=== PATIENT | male | born 1960 | race Caucasian/White ===

== ENCOUNTER 2022-11-26 09:52 | Outpatient (CLI) | payer OTHER, SELFPAY | END 2022-11-26 09:53 | disposition home or self-care (01) | PROVIDERS: PCP Physician Assistant Medical; Visit Provider Physician Assistant Medical | DX: I10 Essential (primary) hypertension (principal); Z12.5 Encounter for screening for malignant neoplasm of prostate; Z13.6 Encounter for screening for cardiovascular disorders | CPT/HCPCS: 80053; 80061; 84153 ==

== ENCOUNTER 2023-09-25 07:03 | Outpatient (CLI) | payer OTHER, SELFPAY ==
--- NOTE | 2023-09-25 07:15 | CRLHL7_ITS ---
For Patients: As a result of the Century Cures Act, medical imaging exams and procedure reports are released immediately into your electronic medical record. You may view this report before your referring provider. If you have questions, please contact your health care provider. INDICATION: Low back pain. COMPARISON: None. TECHNIQUE: Sagittal T1, T2, and STIR sequences. Axial T1 and T2 weighted sequences. FINDINGS: Normal vertebral body alignment. No fractures. No vertebral body loss of height. No spondylolisthesis. No ligament injury. No suspicious osseous lesions. Normal conus terminates at T12-L1. T12-L1 L1-2: No spinal canal or neural foraminal narrowing. L2-3: Annular bulge. No narrowing of the spinal canal. No neural foraminal narrowing. L3-4: Mild disc degeneration. Small central disc protrusion measuring approximately 3 mm in short axis. No narrowing of the spinal canal. No neural foraminal narrowing. L4-5: Disc degeneration and posterior disc bulge. No narrowing of spinal canal. No neural foraminal narrowing. Mild facet arthropathy. L5-S1: No narrowing of the spinal canal. No impingement of the traversing S1 nerve roots. No neural foraminal narrowing. Mild facet arthropathy. Normal visualized SI joints. Normal paraspinal soft tissues. Bilateral renal cysts. IMPRESSION: 1. Normal alignment. No fractures. 2. Lumbar spondylosis 3. At L3-4, mild disc degeneration. Small central disc protrusion. No spinal canal or neural foraminal narrowing. 4. No spinal canal or neural foraminal narrowing at the remaining levels Dictated by Harry Killian MD @ 09/25/2023 11:40:29 AM (Electronically Signed)
--- NOTE | 2023-09-25 13:00 | CRLHL7_ITS ---
For Patients: As a result of the Century Cures Act, medical imaging exams and procedure reports are released immediately into your electronic medical record. You may view this report before your referring provider. If you have questions, please contact your health care provider. INDICATION: Right upper quadrant pain COMPARISON: none TECHNIQUE: Real time villatoro scale imaging and color Doppler analysis was performed of the right upper quadrant. FINDINGS: The liver echotexture is diffusely increased with areas of focal fatty sparing. No suspicious intrahepatic mass. Intrahepatic cyst is present measuring 2.7 x 2.8 x 3.6 cm. Other smaller cysts are present elsewhere. There is a normal appearance of the hepatic IVC and proximal abdominal aorta. There is no evidence of ascites. The gallbladder is of normal size and there is no evidence of intraluminal stones or sludge. The gallbladder wall measures 2.9 mm in thickness. The common bile duct is of normal size and measures 6.8 mm in diameter at the level of the jose hepatis. The pancreas is not well-visualized. There is no evidence of a stone or hydronephrosis within the right kidney. Simple cyst right kidney are present. No hydronephrosis. The right kidney measures 12.0 cm in length. IMPRESSION: Diffuse hepatic steatosis with incidental intrahepatic cysts. Normal gallbladder. Dictated by Emiliano Wright MD @ 09/25/2023 1:35:01 PM (Electronically Signed)
== END 2023-09-25 07:04 | disposition home or self-care (01) ==
LOC: MRI 07:04
PROVIDERS: PCP Physician Assistant Medical; Visit Provider Physician Assistant Medical
DX: M54.50 Low back pain, unspecified (principal); M47.896 Other spondylosis, lumbar region; M51.36 Other intervertebral disc degeneration, lumbar region; M51.26 Other intervertebral disc displacement, lumbar region; R10.11 Right upper quadrant pain; K76.0 Fatty (change of) liver, not elsewhere classified; K76.89 Other specified diseases of liver; G89.29 Other chronic pain
CPT/HCPCS: 72148; 76705

== ENCOUNTER 2023-11-24 10:11 | Outpatient (CLI) | payer OTHER, SELFPAY ==
--- OUTSIDE RECORDS SUMMARY | 2023-11-28 09:56 | XMS_ITS | Encounter Summary ---
Author Name Unknown Organization [facility] Address [address] [place] [address]. [place] [address] Care Team Providers Care Hardboard Grinder Name Role Phone Noy Major MD Primary Care Provider [phone] Noy Major MD Unavailable Noy Major MD Unavailable Noy Major MD Unavailable Reason for Visit * Reason Comments Medication Refill ibuprofen (ADVIL/MOT RIN) 800 MG tablet Encounter Details Date Type Department Care Team (Late st Contact Info) Description 09/14/[address] [phone] Noy Major MD [address] [place] [address] [phone] Medication Refill ( ibuprofen (ADVIL/MOTRIN) 800 MG [...] because: Labs not current Vasile Mendieta RN CTOR OF SUPPLY CHAIN * Telephone Encounter - Nakita Mosley - [...] prescribing provider: Dr Major Future Office Visit: CTOR OF SUPPLY CHAIN documented in this encounter Plan of Treatment Not on file documented as of this encounter Visit Diagnoses Diagnosis Bilateral low back pain without sciatica, unspecified chronicity documented in this encounter Additional Health Concerns Assessment Noted Time PHQ-9 Depression Total Score: 0 12/24/19 18 7:39 AM CDT documented as of this encounter Care Teams Hardboard Grinder Relationship Specialty [place] [address] [place] [address] PCP - General Family Practice 03/19/11 [place] [address] [place] [address] PCP - Assigned PCP 07/14/16 10/20/18 [place] [address] [place] [address] Assigned PCP 07/14/16 08/02/22 [place] [address] [place] [address] Assigned PCP 10/12/22 11/15/22 documented as of this encounter
--- OUTSIDE RECORDS SUMMARY | 2023-11-28 09:56 | XMS_ITS | Encounter Summary ---
Author Name Unknown Organization [facility] Address [address] [place] [address]. [place] [address] Care Team Providers Care Linter Drier Operator Name Role Phone Noy Major MD Primary Care Provider [phone] Noy Major MD Unavailable Noy Major MD Unavailable Reason for Visit * Reason Comments Medication Refill Encounter Details Date Type Department Care Team (Late st Contact Info) Description 02/02/[address] [phone] [place] [id number] [place] [id number] Medication Refill Social History Tobacco Use [...] A break in medication Jimena Jay RN [facility] -- Triage Nurse documented in this encounter Plan of Treatment Not on file documented as of this encounter Visit Diagnoses Diagnosis Essential hypertension Unspecified essential hypertension documented in this encounter Additional Health Concerns Assessment Noted Time PHQ-9 Depression Total Score: 3 07/21/20 19 7:04 AM CANNING MACHINE OPERATOR documented as of this encounter Care Teams Linter Drier Operator Relationship Specialty [place] [address] [place] [address] PCP - General Family Practice 03/19/11 [place] [address] [place] [address] Assigned PCP 07/14/16 08/02/22 [place] [address] [place] [address] Assigned PCP 10/12/22 11/15/22 documented as of this encounter
--- OUTSIDE RECORDS SUMMARY | 2023-11-28 09:56 | XMS_ITS | Encounter Summary ---
Author Name Unknown Organization [facility] Address [address] [place] [address] Care Team Providers Care Souvenir Assembler Name Role Phone Noy Major MD Primary Care Provider [phone] Noy Major MD Unavailable Noy Major MD Unavailable Reason for Visit * Reason Onset Date Comments Patient/info Update 08/31/2019 post T1-2 in terlaminar epidural steroid injection Encounter Details Date Type Department Care Team (Late st Contact Info) Description 08/31/2019 [facility] Pain Management [address] [place] [address] [place] [address] [place] [address] Patient/info Update (post T1-2 interlaminar [...] concerns pt should call the clinic at [phone]. C [employer] documented in this encounter Plan of Treatment Not on file documented as of this encounter Visit Diagnoses Not on filedocumented in this encounter Additional Health Concerns Assessment Noted Time PHQ-9 Depression Total Score: 3 07/21/20 19 7:04 AM MUSIC THERAPIST [employer] documented as of this encounter Care Teams Souvenir Assembler Relationship Specialty [place] [address] [place] [address] PCP - General Family Practice 03/19/11 [place] [address] [place] [address] Assigned PCP 07/14/16 08/02/22 [place] [address] [place] [address] Assigned PCP 10/12/22 11/15/22 documented as of this encounter
--- OUTSIDE RECORDS SUMMARY | 2023-11-28 09:56 | XMS_ITS | Encounter Summary ---
Author Name Unknown Organization [facility] Address [address] [place] [address]. [place] [address] Care Team Providers Care Chucking Machine Set Up Operator Name Role Phone Noy Major MD Primary Care Provider [phone] Noy Major MD Unavailable Noy Major MD Unavailable Reason for Visit * Reason Comments Medication Refill Gabapentin Encounter Details Date Type Department Care Team (Late st Contact Info) Description 08/05/[address] [phone] [place] [id number] [place] [address] Medication Refill (Gabapentin) Social History Tobacco [...] RF 02/08/19 #270 RF x 1 03/09/2019 [place] [facility] Plan: ?? 1. Pain Physical [...] increase in pain since first session of healthcare account manager this past weekend. I advised he monitor [...] of care. ?? Marine Morgan APRN, CNP [facility] E WORKER HELPER documented in this encounter Plan of Treatment Not on file documented as of this encounter Visit Diagnoses Diagnosis Chronic bilateral low back pain without sciatica documented in this encounter Additional Health Concerns Assessment Noted Time PHQ-9 Depression Total Score: 3 07/21/20 19 7:04 AM PLATE WORKER HELPER documented as of this encounter Care Teams Chucking Machine Set Up Operator Relationship Specialty [place] [address] [place] [address] PCP - General Family Practice 03/19/11 [place] [address] [place] [address] Assigned PCP 07/14/16 08/02/22 [place] [address] [place] [address] Assigned PCP 10/12/22 11/15/22 documented as of this encounter
--- OUTSIDE RECORDS SUMMARY | 2023-11-28 09:56 | XMS_ITS | Encounter Summary ---
Author Name Unknown Organization [facility] Address [address] [place] [address] Care Team Providers Care Dixonac Operator Name Role Phone Noy Major MD Primary Care Provider [phone] Noy Major MD Unavailable Noy Major MD Unavailable Reason for Visit * Reason Onset Date Comments Patient/info Update 03/02/2020 Encounter Details Date Type Department Care Team (Late st Contact Info) Description 03/02/2020 Telephone [facility] Pain Management [address] [place] [address] Heidi Morgan, SKIN LIFTER BACON [facility] [address] [place] [address] Patient/info Update Social History Tobacco [...] or video, in 6 weeks Dolores Islas Marketing Professional [facility] documented in this encounter Plan of Treatment Not on file documented as of this encounter Visit Diagnoses Not on filedocumented in this encounter Additional Health Concerns Assessment Noted Time PHQ-9 Depression Total Score: 3 07/21/20 19 7:04 AM CUT IN WORKER documented as of this encounter Care Teams Dixonac Operator Relationship Specialty [place] [address] [place] [address] PCP - General Family Practice 03/19/11 [place] [address] [place] [address] Assigned PCP 07/14/16 08/02/22 [place] [address] [place] [address] Assigned PCP 10/12/22 11/15/22 documented as of this encounter
--- OUTSIDE RECORDS SUMMARY | 2023-11-28 09:56 | XMS_ITS | Encounter Summary ---
Author Name Unknown Organization [facility] Address [address] [place] [address]. [place] [address] Care Team Providers Care Manager Of Merchandising Name Role Phone Noy Major MD Primary Care Provider Noy Major MD Unavailable Noy Major MD Unavailable Noy Major MD Unavailable Encounter Details Date Type Department Care Team (Late st Contact Info) Description 06/13/2017 [facility] Medical Advice [facility] Neurological [address] [phone] Mega Curry MD [facility]THOPEDICS [address] [place] [address] Social History Tobacco Use Types [...] documented as of this encounter Care Teams Manager Of Merchandising Relationship Specialty [place] [address] [place] [address] PCP - General Family Practice 03/19/11 [place] [address] [place] [address] PCP - Assigned PCP 07/14/16 10/20/18 [place] [address] [place] [address] Assigned PCP 07/14/16 08/02/22 [place] [address] [place] [address] Assigned PCP 10/12/22 11/15/22 documented as of this encounter
--- OUTSIDE RECORDS SUMMARY | 2023-11-28 09:56 | XMS_ITS | Encounter Summary ---
Author Name Unknown Organization [facility] Address [address] [place] [address] Care Team Providers Care Employee Communications Intern Name Role Phone Noy Major MD Primary Care Provider Noy Major MD Unavailable Noy Major MD Unavailable Reason for Visit * Reason Onset Date Comments Procedure 03/09/2019 C7-T1 interlamin ar epidural steroid injection Encounter Details Date Type Department Care Team (Late st Contact Info) Description 03/09/2019 Telephone [facility] Pain Management [address] [place] [address] Heidi Morgan, CELLULAR EQUIPMENT REPAIRER [facility] [address] [place] [address] Procedure (C7-T1 interlaminar epidural steroid injection [...] be done at which interventional clinic site? [facility] Instruct patient to arrive as directed prior to the scheduled appointment time: ?? [place]: 30 minutes before ?? [place]: 30 minutes [...] SCHEDULE and route to Altagracia Derick. ?? [employer] insurance - For SI joint injections, DO NOT SCHEDULE and route Altagracia Derick. ?? [employer] - Any injection besides hip/shoulder/knee joint DO NOT SCHEDULE and route to Altagracia Derick.She will obtain PA and call pt back to schedule procedure or notify pt of denial. ?? [employer]-Route to Altagracia for review ?? IF SCHEDULING IN [place] AND NEEDS A PA, IT IS OKAY TO SCHEDULE. [place] HANDLES THEIR OWN PA'S AFTER THE PATIENT IS SCHEDULED. PLEASE SCHEDULE AT LEAST 1 WEEK OUT SO A PA CAN BE OBTAINED. Any chance of ? NO If YES, do NOT schedule and route to swimming pool installer and servicer Is an creative services manager needed? No Patient has a drive home? (mandatory) YES: ok Is patient taking any blood thinners (plavix, coumadin, jantoven, warfarin, heparin, pradaxa or dabigatran )? No If hold needed, do NOT schedule, route to swimming pool installer and servicer Is patient taking any aspirin products (includes Excedrin and Fiorinal)? No ?? If more than 325mg/day do NOT schedule; route to swimming pool installer and servicer ?? For CERVICAL procedures, hold all aspirin [...] YES, do NOT schedule and route to swimming pool installer and servicer Are you able to get on and off an exam table with minimal or no assistance? Yes If NO, do NOT schedule and route to swimming pool installer and servicer Are you able to roll over and lay on your stomach with minimal or no assistance? Yes If NO, do NOT schedule and route to swimming pool installer and servicer Any allergies to contrast dye, iodine, shellfish, or numbing and steroid medications? No If YES, route to swimming pool installer and servicer AND add allergy information to appointment notes [...] years? Yes ?? Was MRI done at [facility]? Yes ?? If not, where was it done? N/A ?? If MRI was not done at [facility], [facility] or [facility] do NOT schedule and route [...] patient have any questions? NO Saba Cooney [facility] documented in this encounter Plan of Treatment Not on file documented as of this encounter Visit Diagnoses Not on filedocumented in this encounter Additional Health Concerns Assessment Noted Time PHQ-9 Depression Total Score: 18 019 7:03 AM CDT documented as of this encounter Care Teams Employee Communications Intern Relationship Specialty [place] [address] [place] [address] PCP - General Family Practice 03/19/11 [place] [address] [place] [address] Assigned PCP 07/14/16 08/02/22 [place] [address] [place] [address] Assigned PCP 10/12/22 11/15/22 documented as of this encounter
--- OUTSIDE RECORDS SUMMARY | 2023-11-28 09:56 | XMS_ITS | Encounter Summary ---
Author Name Unknown Organization [facility] Address [address] [place] [address]. [place] [address] Care Team Providers Care Chairperson Anesthesiology Name Role Phone Noy Major MD Primary Care Provider Noy Major MD Unavailable Noy Major MD Unavailable Noy Major MD Unavailable Encounter Details Date Type Department Care Team (Late st Contact Info) Description 04/18/2017 [facility] Medical Advice [facility] Neurological [address] [phone] Mega Curry MD [facility] ORTHOPEDICS [address] [place] [address] Social History Tobacco Use Types [...] documented as of this encounter Care Teams Chairperson Anesthesiology Relationship Specialty [place] [address] [place] [address] PCP - General Family Practice 03/19/11 [place] [address] [place] [address] PCP - Assigned PCP 07/14/16 10/20/18 [place] [address] [place] [address] Assigned PCP 07/14/16 08/02/22 [place] [address] [place] [address] Assigned PCP 10/12/22 11/15/22 documented as of this encounter
--- OUTSIDE RECORDS SUMMARY | 2023-11-28 09:56 | XMS_ITS | Encounter Summary ---
Author Name Unknown Organization [facility] Address [address] [place] [address]. [place] [address] Care Team Providers Care Director Of Teacher Education Name Role Phone Noy Major MD Primary Care Provider [phone] Noy Major MD Unavailable Noy Major MD Unavailable Noy Major MD Unavailable Encounter Details Date Type Department Care Team (Late st Contact Info) Description 11/20/2017 [facility] Medical Advice [address] [phone] Tri De Jesus, ASPHALT PAVING FOREMAN Social History Tobacco Use Types Packs/Day Years [...] of this encounter Care Teams Director Of Teacher Education Relationship Specialty [place] [address] [place] [address] PCP - General Family Practice 03/19/11 [place] [address] [place] [address] PCP - Assigned PCP 07/14/16 10/20/18 [place] [address] [place] [address] Assigned PCP 07/14/16 08/02/22 [place] [address] [place] [address] Assigned PCP 10/12/22 11/15/22 documented as of this encounter
--- OUTSIDE RECORDS SUMMARY | 2023-11-28 09:56 | XMS_ITS | Referral Summary ---
Author Name Unknown Organization [place] Address [address] [place] [address] Care Team Providers Care Security Guards Dispatcher Name Role Phone Noy Major MD Primary Care Provider [phone] Allergies Active Allergy Reactions Criticality Noted Date [...] ST Respiratory Rate 18 10/11/2019 10:25 AM ROLL SKINNER Oxygen Saturation 96% 02/29/2020 11:05 AM CDT Inhaled Oxygen Concentration - - Weight 123.8 kg (273 lb) 02/29/2020 11:05 AM CDT Height 185.4 cm (6' 1) 10/11/2019 10:25 AM [facility]NER Body Mass Index 36.02 10/11/2019 10:25 AM RO[facility] SKINNER Plan of Treatment Not on file Medical Devices Implanted Type Area Compressed Gas Tester Device Identifier Shelf Expiration Date Model / Serial / Lot Graft Bone Putty Dbx 01ml [id number] Implanted:Qty : 1 on 03/21/2017 by Mega Curry MD at [facility] Bone/Ti ssue/Bi ologic N/A: Spine Cervical MUSCULOSKELETAL ROSS 10/15/2018 [id number] / [id number] / Archon Plate Implanted:Qty : 1 on 03/21/2017 by Mega Curry MD at [facility] N/A: Spine Cervical [id number] / / [id number] Archon Screw Implanted:Qty : 2 on 03/21/2017 by Mega Curry MD at [facility] N/A: Spine Cervical [id number] / / [id number] Archon Screw Implanted:Qty : 2 on 03/21/2017 by Mega Curry MD at [facility] N/A: Spine Cervical [id number] / / [id number] Cor Sm Acr Implanted:Qty : 1 on 03/21/2017 by Mega Curry MD at [facility] N/A: Spine Cervical [id number] / / [id number] 002 Procedures Procedure Name Priority Date/Time Associated Diagnosis Comments BASIC METABOLIC PANEL STAT 09/20/2019 10:33 AM RO[facility]INNER FECAL COLORECTAL CANCER SCREEN FIT Routine 08/27/2019 12:06 PM [facility] Screen for colon cancer LIPID REFLEX TO [...] Basic metabolic panel (BMP) (09/20/2019 10:33 AM ROLL SKINNER) Sodium 139 133 - 144 mmol/L 09/20/2019 12:04 PM ROLL SKINNER [facility] Potassium 4.1 3.4 - 5.3 mmol/L 09/20/2019 12:04 PM [facility] Comment:Specimen slightly he molyzed, potassium may be falsely elevated Chloride 106 94 - 109 mmol/L 09/20/2019 12:04 PM [facility] Carbon Dioxide 27 20 - 32 mmol/L 09/20/2019 11:10 AM [facility] Anion Gap 6 3 - 14 mmol/L 09/20/2019 11:10 AM [facility] Glucose 105(H) 70 - 99 mg/dL 09/20/2019 11:10 AM [facility] Urea Nitrogen 10 7 - 30 mg/dL 09/20/2019 11:10 AM [facility] Creatinine 0.79 0.66 - 1.25 mg/dL 09/20/2019 11:10 AM [facility] GFR Estimate >90 >60 mL/min/{1. 73_m2} 09/20/2019 11:10 AM [facility] Comment: Non GFR Calc Starting 08/04/2018, serum creatinine based estimated GFR (eGFR) will be calculated using the Chronic Kidney Disease Epidemiology Collaboration (CKD-EPI) equation. GFR Estimate If Black >90 >60 mL/min/{1. 73_m2} 09/20/2019 11:10 AM [facility] Comment: GFR Calc Starting 08/04/2018, serum creatinine based estimated GFR (eGFR) will be calculated using the Chronic Kidney Disease Epidemiology Collaboration (CKD-EPI) equation. Calcium 9.5 8.5 - 10.1 mg/dL 09/20/2019 11:10 AM [facility] Blood specimen (specimen) 09/20/2019 10:33 AM RO[facility] SKINNER 09/20/2019 10:42 AM RO[facility] SKINNER Rocael Palencia MD LAB - BLOOD ORDER [facility] [place] [address], [facility] [phone] * Fecal colorectal cancer screen FIT - Future (S+30) (08/27/2019 12:06 PM ROLL SKINNER) Occult Blood Scn FIT Negative NEG^Negati ve 09/01/2019 7:22 PM ROLL SKINNER [facility] Stool specimen (specimen) 08/27/2019 12:06 PM ROLL SKINNER 09/01/2019 12:07 PM RO[facility] SKINNER Noy Major MD LAB - STOOLS ORDERAB LES Performing Organization Address City/[facility]/ZIP Co de Phone Number [facility] [address] [place] [address] * (ABNORMAL) Lipid panel reflex to direct LDL Fasting (02/08/2019 10:43 AM CDT) [facility] Cholesterol 162 <200 mg/dL 02/09/2019 11:04 AM CDT [facility] Triglycerides 276(H) <150 mg/dL 02/09/2019 11:04 AM CDT [facility] Comment: Borderline high: ??150-199 mg/dl High: ? 200-499 mg/dl Very high: ? >499 mg/dl Fasting specimen HDL Cholesterol 38(L) >39 mg/dL 9 11:10 AM CDT [facility] LDL Cholesterol Calculated 69 <100 mg/dL 02/09/2019 11:10 AM CDT [facility] Comment:Desirable: <100 mg/d l Non HDL Cholesterol 124 <130 mg/dL 02/09/2019 11:10 AM CDT [facility] Blood specimen (specimen) 02/08/2019 10:43 AM CDT 02/08/2019 10:44 AM CDT Noy Major MD LAB - BLOOD ORDERABL ES Performing Organization Address City/[facility]/ZIP Co de Phone Number [facility] [address] [place] [address] * HIV Antigen Antibody Combo (12/22/2017 8:39 AM CDT) Pathologist [facility] HIV Antigen Antibody Combo Nonreactive NR^Nonrea ctive 12/22/2017 8:13 PM CDT [facility] Comment:HIV-1 p24 Ag & HIV-1 /HIV-2 Ab Not Detected Blood specimen (specimen) 12/22/2017 8:39 AM CDT 12/22/2017 8:40 AM CDT Noy Major MD LAB - BLOOD ORDERABL ES Performing Organization Address City/[facility]/ZIP Co de Phone Number [facility] [address] [place] [address] * Hepatitis C Screen Reflex to HCV RNA Quant and Genotype (11/12/2016 9:37 AM CDT) Hepatitis C Antibody Nonreactive Assay performance characteristics have not been established for newborns, infants, and children NR [facility] Blood specimen (specimen) 11/12/2016 9:37 AM CDT 11/12/2016 9:38 AM CDT Noy Major MD LAB - BLOOD ORDERABL ES Performing Organization Address [facility] Co de Phone Number [facility] [address] [place] [address] from Last 3 Months or Most Recently Relevant to Health Maintenance Advance Directives For more information, please contact: [phone] * Full Code (Latest Code Status on File) Date Activated Date Inactivated Comments 03/22/2017 9:49 AM 09/20/2019 10:11 AM * Full Code Date Activated Date Inactivated Comments 03/21/2017 5:02 PM 03/22/2017 9:49 AM Care Teams Security Guards Dispatcher Relationship Specialty [place] [address] [place] [address] PCP - General Family Practice 03/19/11
--- OUTSIDE RECORDS SUMMARY | 2023-11-28 09:56 | XMS_ITS | Encounter Summary ---
Author Name Unknown Organization [facility] Address [address] [place] [address]. [place] [address] Care Team Providers Care Splitting Machine Operator Helper Name Role Phone Noy Major MD Primary Care Provider [phone] Noy Major MD Unavailable Noy Major MD Unavailable Noy Major MD Unavailable Reason for Visit * Reason Onset Date Comments Refill Request 07/08/2016 Ibuprofen, Losar bajwa Encounter Details Date Type Department Care Team (Late st Contact Info) Description 07/08/[address] [phone] [place] [id number] [place] [address] Refill Request (Ibuprofen, Losartan) Social History [...] - Ok for refill Dayna Davis RN UATION ADVISOR * Telephone Encounter - Kristin Levin - 07/08/2016 1:36 PM CST Ibuprofen Last Written Prescription Date: 05/28/16 Last Quantity: 90, # refills: 0 Last Office Visit with [facility], [facility] or [facility] prescribing provider: 02/24/16 Next 5 appointments (look out 90 days) Jul 10, 2016 8:00 AM Yamelt Brody with Noy Major MD [facility] ([facility] [id number] [place] [phone] CREATININE Date Value Ref Range Status 03/03/2015 [...] AM Raffi Skinner with Noy Major MD [facility] ([facility]) [address] [place] [phone] POTASSIUM Date Value Ref Range Status 03/03/2015 3.9 3.4 - 5.3 mmol/L Final CREATININE Date Value Ref Range Status 03/03/2015 0.74 0.66 - 1.25 mg/dL Final BP Readings from Last 3 Encounters: 02/24/16 146/96 03/29/15 128/86 03/03/15 150/94 UATION ADVISOR documented in this encounter Plan of Treatment Not on file documented as of this encounter Visit Diagnoses Diagnosis Chronic low back pain- Primary Lumbago Benign essential hypertension Essential hypertension, benign Acute bilateral low back pain without sciatica documented in this encounter Care Teams Splitting Machine Operator Helper Relationship Specialty [place] [address] [place] [address] PCP - General Family Practice 03/19/11 [place] [address] [place] [address] PCP - Assigned PCP 07/14/16 10/20/18 [place] [address] [place] [address] Assigned PCP 07/14/16 08/02/22 [place] [address] [place] [address] Assigned PCP 10/12/22 11/15/22 documented as of this encounter
--- OUTSIDE RECORDS SUMMARY | 2023-11-28 09:56 | XMS_ITS | Encounter Summary ---
Author Name Unknown Organization [facility] Address [address] [place] [address]. [place] [address] Care Team Providers Care Lead Burner Supervisor Name Role Phone Noy Major MD Primary Care Provider [phone] Noy Major MD Unavailable Noy Major MD Unavailable Noy Major MD Unavailable Encounter Details Date Type Department Care Team (Late st Contact Info) Description 11/05/2017 [facility] [address] [address] Vasile Mendieta, RN Social History [...] documented as of this encounter Care Teams Lead Burner Supervisor Relationship Specialty [place] [address] [place] [address] PCP - General Family Practice 03/19/11 [place] [address] [place] [address] PCP - Assigned PCP 07/14/16 10/20/18 [place] [address] [place] [address] Assigned PCP 07/14/16 08/02/22 [place] [address] [place] [address] Assigned PCP 10/12/22 11/15/22 documented as of this encounter
--- OUTSIDE RECORDS SUMMARY | 2023-11-28 09:56 | XMS_ITS | Encounter Summary ---
Author Name Unknown Organization [facility] Address [address] [place] [address]. [place] [address] Care Team Providers Care Foundry Operator Name Role Phone Noy Major MD Primary Care Provider [phone] Noy Major MD Unavailable Noy Major MD Unavailable Reason for Visit * Reason Onset Date Comments Outreach 10/02/2019 [facility] ATT 1 Encounter Details Date Type Department Care Team (Late st Contact Info) Description 10/02/2019 Telephone [facility] Centralized Scheduling [facility] [place] [address] [place] [address] [place] [address] Outreach ([facility] ATT 1 [...] ReattributionPhysical Attempt 1 Message on voicemail Outreach Electrician Elevator Maintenance KT ONAL OPELINT ANALYST documented in this encounter Plan of Treatment Not on file documented as of this encounter Visit Diagnoses Not on filedocumented in this encounter Additional Health Concerns Assessment Noted Time PHQ-9 Depression Total Score: 3 07/21/20 19 7:04 AM NATIONAL OPELINT ANALYST documented as of this encounter Care Teams Foundry Operator Relationship Specialty [place] [address] [place] [address] PCP - General Family Practice 03/19/11 [place] [address] [place] [address] Assigned PCP 07/14/16 08/02/22 [place] [address] [place] [address] Assigned PCP 10/12/22 11/15/22 documented as of this encounter
--- OUTSIDE RECORDS SUMMARY | 2023-11-28 09:56 | XMS_ITS | Clinical Summary ---
Author Name Unknown Organization [facility] Address [place], [place] [address] Care Team Providers Care Talent Development Consultant Name Role Phone Noy Major MD Primary Care Provider [phone] Allergies Active Allergy Reactions Criticality Noted Date [...] Description 11/27/2023 9:30 AM CDT Office [place] [facility] [address] [place] [address] Isai Vargas MD Arrived 11/27/2023 Telephone [facility] [address] [place] [address] Dr Cuellar [facility] [place] [address] Isai Vargas MD Health Maintenance Update from Last 3 Months Immunizations Name Administration [...] Comments Blood Pressure 134/88 06/18/2020 3:27 PM CHECKING CLERK Pulse 70 06/18/2020 3:27 PM CHECKING CLERK Temperature 36.6 ??C (97.8 ??F) 06/18/2020 5:24 PM CS T Respiratory Rate 16 06/18/2020 3:27 PM CHECKING CLERK Oxygen Saturation 96% 06/18/2020 3:27 PM CHECKING CLERK Inhaled Oxygen Concentration - - Weight 127 kg (280 lb) 06/18/2020 3:27 PM CHECKING CLERK Height 188 cm (6' 2) 06/18/2020 3:27 PM CHECKING CLERK Body Mass Index 35.95 06/18/2020 3:27 PM CHECKING CLERK Plan of Treatment Health Maintenance Due Date [...] age to complete this topic Care Teams Talent Development Consultant Relationship Specialty [place] [address] [place] [address] PCP - General Family Practice 04/13/18
--- OUTSIDE RECORDS SUMMARY | 2023-11-28 09:56 | XMS_ITS | Encounter Summary ---
Author Name Unknown Organization [facility] Address [address] [place] [address]. [place] [address] Care Team Providers Care Roller Maker Name Role Phone Noy Major MD Primary Care Provider [phone] Noy Major MD Unavailable Noy Major MD Unavailable Encounter Details Date Type Department Care Team (Late st Contact Info) Description 08/19/2019 [facility] Pain Management [address] [place] [address] Malena Barrientos Social History Tobacco [...] Total Score: 3 07/21/20 19 7:04 AM V BELT FINISHER documented as of this encounter Care Teams Roller Maker Relationship Specialty [place] [address] [place] [address] PCP - General Family Practice 03/19/11 [place] [address] [place] [address] Assigned PCP 07/14/16 08/02/22 [place] [address] [place] [address] Assigned PCP 10/12/22 11/15/22 documented as of this encounter
--- OUTSIDE RECORDS SUMMARY | 2023-11-28 09:56 | XMS_ITS | Clinical Summary ---
Author Name Unknown Organization [place] [facility] Address [address] [place] [address] Care Team Providers Care Healthcare Market Consultant Name Role Phone Noy Major MD Primary Care Provider [phone] Allergies Active Allergy Reactions Criticality Noted Date [...] ST Respiratory Rate 18 10/11/2019 10:25 AM [facility]MP[facility] WRAPPER MAKER Oxygen Saturation 96% 02/29/2020 11:05 AM CDT Inhaled Oxygen Concentration - - Weight 123.8 kg (273 lb) 02/29/2020 11:05 AM CDT Height 185.4 cm (6' 1) 10/11/2019 10:25 AM [facility] WRAPPER MAKER Body Mass Index 36.02 10/11/2019 10:25 AM [facility] WRAPPER MAKER Plan of Treatment Health Maintenance Due [...] this topic Medical Devices Implanted Type Area Website Admin Device Identifier Shelf Expiration Date Model / Serial / Lot Graft Bone Putty Dbx 01ml [id number] Implanted:Qty : 1 on 03/21/2017 by Mega Curry MD at [facility] Bone/Ti ssue/Bi ologic N/A: Spine Cervical MUSCULOSKELETAL ROSS 10/15/2018 [id number] / [id number] / Archon Plate Implanted:Qty : 1 on 03/21/2017 by Mega Curry MD at [facility] N/A: Spine Cervical [id number] / / [id number] Archon Screw Implanted:Qty : 2 on 03/21/2017 by Mega Curry MD at [facility] N/A: Spine Cervical [id number] / / [id number] 002 Archon Screw Implanted:Qty : 2 on 03/21/2017 by Mega Curry MD at [facility] N/A: Spine Cervical [id number] / / [id number] 002 Cor Sm Acr Implanted:Qty : 1 on 03/21/2017 by Mega Curry MD at [facility] N/A: Spine Cervical [id number] / / [id number] 002 Procedures Procedure Name Priority Date/Time Associated Diagnosis Comments BASIC METABOLIC PANEL STAT 09/20/2019 10:33 AM [facility]MP[facility] WRAPPER MAKER FECAL COLORECTAL CANCER SCREEN FIT Routine 08/27/2019 12:06 PM [facility] WRAPPER MAKER Screen for colon cancer LIPID REFLEX [...] Basic metabolic panel (BMP) (09/20/2019 10:33 AM [facility]MP[facility] WRAPPER MAKER) Sodium 139 133 - 144 mmol/L 09/20/2019 12:04 PM [facility] Potassium 4.1 3.4 - 5.3 mmol/L 09/20/2019 12:04 PM [facility] Comment:Specimen slightly he molyzed, potassium may be falsely elevated Chloride 106 94 - 109 mmol/L 09/20/2019 12:04 PM [facility] Carbon Dioxide 27 20 - 32 mmol/L 09/20/2019 11:10 AM [facility] Anion Gap 6 3 - 14 mmol/L 09/20/2019 11:10 AM [facility] Glucose 105(H) 70 - 99 mg/dL 09/20/2019 11:10 AM [facility] Urea Nitrogen 10 7 - 30 mg/dL 09/20/2019 11:10 AM [facility] Creatinine 0.79 0.66 - 1.25 mg/dL 09/20/2019 11:10 AM [facility] GFR Estimate >90 >60 mL/min/{1. 73_m2} 09/20/2019 11:10 AM [facility] Comment: Non GFR Calc Starting 08/04/2018, serum creatinine based estimated GFR (eGFR) will be calculated using the Chronic Kidney Disease Epidemiology Collaboration (CKD-EPI) equation. GFR Estimate If Black >90 >60 mL/min/{1. 73_m2} 09/20/2019 11:10 AM [facility] Comment: GFR Calc Starting 08/04/2018, serum creatinine based estimated GFR (eGFR) will be calculated using the Chronic Kidney Disease Epidemiology Collaboration (CKD-EPI) equation. Calcium 9.5 8.5 - 10.1 mg/dL 09/20/2019 11:10 AM [facility] Blood specimen (specimen) 09/20/2019 10:33 AM LUMPIA WRAPPER MAKER 09/20/2019 10:42 AM LUMPIA WRAPPER MAKER Rocael Palencia MD LAB - BLOOD ORDER [facility] [address] [place] [address], [facility] [phone] * Fecal colorectal cancer screen FIT - Future (S+30) (08/27/2019 12:06 PM LUMP[facility] WRAPPER MAKER) Occult Blood Scn FIT Negative NEG^Negati ve 09/01/2019 7:22 PM LUMPIA WRAPPER MAKER [facility] Stool specimen (specimen) 08/27/2019 12:06 PM LUMPIA WRAPPER MAKER 09/01/2019 12:07 PM LUMPIA WRAPPER MAKER Noy Major MD LAB - STOOLS ORDERAB LES [facility] [address] [place] [address] * (ABNORMAL) Lipid panel reflex to direct LDL Fasting (02/08/2019 10:43 AM CDT) Cholesterol 162 <200 mg/dL 02/09/2019 11:04 AM CDT [facility] Triglycerides 276(H) <150 mg/dL 02/09/2019 11:04 AM CDT [facility] Comment: Borderline high: ??150-199 mg/dl High: ? 200-499 mg/dl Very high: ? >499 mg/dl Fasting specimen HDL Cholesterol 38(L) >39 mg/dL 9 11:10 AM CDT [facility] LDL Cholesterol Calculated 69 <100 mg/dL 02/09/2019 11:10 AM CDT [facility] Comment:Desirable: <100 mg/d l Non HDL Cholesterol 124 <130 mg/dL 02/09/2019 11:10 AM CDT [facility] Blood specimen (specimen) 02/08/2019 10:43 AM CDT 02/08/2019 10:44 AM CDT Noy Major MD LAB - BLOOD ORDERABL ES [facility] [address] [place] [address] * HIV Antigen Antibody Combo (12/22/2017 8:39 AM CDT) HIV Antigen Antibody Combo Nonreactive NR^Nonrea ctive 12/22/2017 8:13 PM CDT [facility] Comment:HIV-1 p24 Ag & HIV-1 /HIV-2 Ab Not Detected Blood specimen (specimen) 12/22/2017 8:39 AM CDT 12/22/2017 8:40 AM CDT Noy Major MD LAB - BLOOD ORDERABL ES Performing Organization Address City/[facility]/ZIP Co de Phone Number [facility] [address] [place] [address] * Hepatitis C Screen Reflex to HCV RNA Quant and Genotype (11/12/2016 9:37 AM CDT) Hepatitis C Antibody Nonreactive Assay performance characteristics have not been established for newborns, infants, and children NR [facility] Blood specimen (specimen) 11/12/2016 9:37 AM CDT 11/12/2016 9:38 AM CDT Noy Major MD LAB - BLOOD ORDERABL ES [facility] [address] [place] [address] from Last 3 Months or Most Recently Relevant to Health Maintenance Advance Directives For more information, please contact: [phone] * Full Code (Latest Code Status on File) Date Activated Date Inactivated Comments 03/22/2017 9:49 AM 09/20/2019 10:11 AM * Full Code Date Activated Date Inactivated Comments 03/21/2017 5:02 PM 03/22/2017 9:49 AM Care Teams Healthcare Market Consultant Relationship Specialty [place] [address] [place] [address] PCP - General Family Practice 03/19/11
--- OUTSIDE RECORDS SUMMARY | 2023-11-28 09:56 | XMS_ITS | Encounter Summary ---
Author Name Unknown Organization [facility] Address [address] [place] [address]. [place] [address] Care Team Providers Care Safety Analyst Name Role Phone Noy Major MD Primary Care Provider [phone] Noy Major MD Unavailable Noy Major MD Unavailable Reason for Visit * Reason Onset Date Comments Referral 02/08/2019 New Eval Encounter Details Date Type Department Care Team (Late st Contact Info) Description 02/08/2019 Telephone [facility] Pain Management [address] [place] [address] Pain Management Program, [facility] Referral (New Eval ) Social History Tobacco [...] are we to bill for this appointment? SocStock 7. Informed pt of cancellation (48 hour) [...] POLICY Yes 9. Referring Provider: Noy Major Dispatch Machine Runner [facility] documented in this encounter Plan of Treatment Not on file documented as of this encounter Visit Diagnoses Not on filedocumented in this encounter Additional Health Concerns Assessment Noted Time PHQ-9 Depression Total Score: 18 019 7:03 AM CDT documented as of this encounter Care Teams Safety Analyst Relationship Specialty [place] [address] [place] [address] PCP - General Family Practice 03/19/11 [place] [address] [place] [address] Assigned PCP 07/14/16 08/02/22 [place] [address] [place] [address] Assigned PCP 10/12/22 11/15/22 documented as of this encounter
--- OUTSIDE RECORDS SUMMARY | 2023-11-28 09:56 | XMS_ITS | Encounter Summary ---
Author Name Unknown Organization [facility] Address [address] [place] [address]. [place] [address] Care Team Providers Care Senior Electrical Designer Name Role Phone Noy Major MD Primary Care Provider [phone] Noy Major MD Unavailable Noy Major MD Unavailable Encounter Details Date Type Department Care Team (Late st Contact Info) Description 02/11/2019 [facility] Medical Advice [address], [address] [place] [address] Marce Velazquez, LEONARDA Social History [...] documented as of this encounter Care Teams Senior Electrical Designer Relationship Specialty [place] [address] [place] [address] PCP - General Family Practice 03/19/11 [place] [address] [facility] [address] Assigned PCP 07/14/16 08/02/22 [place] [address] [place] [address] Assigned PCP 10/12/22 11/15/22 documented as of this encounter
--- OUTSIDE RECORDS SUMMARY | 2023-11-28 09:56 | XMS_ITS | Encounter Summary ---
Author Name Unknown Organization [facility] Address [address] [place] [address]. [place] [address] Care Team Providers Care Chronometer Repairer Name Role Phone Noy Major MD Primary Care Provider [phone] Encounter Details Date Type Department Care Team [...] Total Score: 3 07/21/20 19 7:04 AM TAXONOMIST documented as of this encounter Care Teams Chronometer Repairer Relationship Specialty [place] [address] [place] [address] PCP - General Family Practice 03/19/11 documented as of this encounter
--- OUTSIDE RECORDS SUMMARY | 2023-11-28 09:57 | XMS_ITS | Encounter Summary ---
Author Name Unknown Organization [facility] Address [address] [place] [address]. [place] [address] Care Team Providers Care Skid Adzer Name Role Phone Noy Major MD Primary Care Provider [phone] Noy Major MD Unavailable Noy Major MD Unavailable Noy Major MD Unavailable Reason for Visit * Reason Onset Date Comments Refill Request 04/26/2016 Losartan Encounter Details Date Type Department Care Team (Late st Contact Info) Description 04/26/[address] [phone] [place] [id number] [place] [address] [phone] Refill Request (Losartan) Social History Tobacco Use [...] # refills: 1 Last Office Visit with [facility] prescribing provider: 02/24/2016 POTASSIUM Date Value [...] benign documented in this encounter Care Teams Skid Adzer Relationship Specialty [place] [address] [place] [address] PCP - General Family Practice 03/19/11 [place] [address] [place] [address] PCP - Assigned PCP 07/14/16 10/20/18 [place] [address] [place] [address] Assigned PCP 07/14/16 08/02/22 [place] [address] [place] [address] Assigned PCP 10/12/22 11/15/22 documented as of this encounter
--- OUTSIDE RECORDS SUMMARY | 2023-11-28 09:57 | XMS_ITS | Encounter Summary ---
Author Name Unknown Organization [facility] Address [address] [place] [address] Care Team Providers Care Reception Centre Manager Name Role Phone Noy Major MD Primary Care Provider [phone] Noy Major MD Unavailable Noy Major MD Unavailable Noy Major MD Unavailable Encounter Details Date Type Department Care Team (Late st Contact Info) Description 09/08/2012 [facility] [address] [phone] [facility] Social History Tobacco Use Types Packs/Day Years [...] on filedocumented in this encounter Care Teams Reception Centre Manager Relationship Specialty Start Date [place] Noy [place] [id number] [place] [address] [phone] PCP - General Family Practice 03/19/11 [place] [address] [place] [address] PCP - Assigned PCP 07/14/16 10/20/18 [place] [address] [place] [address] Assigned PCP 07/14/16 08/02/22 [place] [address] [place] [address] Assigned PCP 10/12/22 11/15/22 documented as of this encounter
--- OUTSIDE RECORDS SUMMARY | 2023-11-28 09:57 | XMS_ITS | Encounter Summary ---
Author Name Unknown Organization [facility] Address [address] [place] [address]. [place] [address] Care Team Providers Care Museum Security Chief Name Role Phone Noy Major MD Primary Care Provider [phone] Noy Major MD Unavailable Noy Major MD Unavailable Noy Major MD Unavailable Encounter Details Date Type Department Care Team (Late st Contact Info) Description 03/08/2015 [facility] Medical Advice [facility] [address] [place] [address] [phone] Anali Ndiaye, [employer]OOK [employer] Social History Tobacco Use Types Packs/Day Years [...] on filedocumented in this encounter Care Teams Museum Security Chief Relationship Specialty Start [place] N[place] [id number] [place] [address] [phone] PCP - General Family Practice 03/19/11 [place] [address] [place] [address] PCP - Assigned PCP 07/14/16 10/20/18 [place] [address] [place] [address] Assigned PCP 07/14/16 08/02/22 [place] [address] [place] [address] Assigned PCP 10/12/22 11/15/22 documented as of this encounter
--- OUTSIDE RECORDS SUMMARY | 2023-11-28 09:57 | XMS_ITS | Encounter Summary ---
Author Name Unknown Organization [facility] Address [address] [place] [address]. [place] [address] Care Team Providers Care Teacher Cclc Name Role Phone Noy Major MD Primary Care Provider [phone] Noy Major MD Unavailable Noy Major MD Unavailable Noy Major MD Unavailable Encounter Details Date Type Department Care Team (Late st Contact Info) Description 01/11/2014 [facility] Medical Advice [facility] [id number] [place] [phone] Tri De Jesus, DIRECTOR OF FAMILY [facility] Social History Tobacco Use Types Packs/Day Years [...] on filedocumented in this encounter Care Teams Teacher Cclc Relationship Specialty Start Date [place] Noy [place] [id number] [place] [address] [phone] PCP - General Family Practice 03/19/11 [place] [address] [place] [address] PCP - Assigned PCP 07/14/16 10/20/18 [place] [address] [place] [address] Assigned PCP 07/14/16 08/02/22 [place] [address] [place] [address] Assigned PCP 10/12/22 11/15/22 documented as of this encounter
--- OUTSIDE RECORDS SUMMARY | 2023-11-28 09:57 | XMS_ITS | Encounter Summary ---
Author Name Unknown Organization [facility] Address [address] [place] [address]. [place] [address] Care Team Providers Care Rn Dialysis Name Role Phone Noy Major MD Primary Care Provider [phone] Noy Major MD Unavailable Noy Major MD Unavailable Noy Major MD Unavailable Reason for Visit * Reason Onset Date Comments Refill Request 05/08/2011 zanaflex and nex ium Encounter Details Date Type Department Care Team (Late st Contact Info) Description 05/08/2011 [facility] Medical Advice [address] [phone] Noy Major MD [address] [place] [address] Refill Request (zanaflex and nexium) Social [...] unspecified documented in this encounter Care Teams Rn Dialysis Relationship Specialty [place] [address] [place] [address] PCP - General Family Practice 03/19/11 [place] [address] [place] [address] PCP - Assigned PCP 07/14/16 10/20/18 [place] [address] [place] [address] Assigned PCP 07/14/16 08/02/22 [place] [address] [place] [address] Assigned PCP 10/12/22 11/15/22 documented as of this encounter
--- OUTSIDE RECORDS SUMMARY | 2023-11-28 09:57 | XMS_ITS | Encounter Summary ---
Author Name Unknown Organization [facility] Address [address] [place] [address] Care Team Providers Care Hse Manager Name Role Phone Noy Major MD Primary Care Provider [phone] Noy Major MD Unavailable Noy Major MD Unavailable Noy Major MD Unavailable Encounter Details Date Type Department Care Team (Late st Contact Info) Description 06/07/2013 [facility] [id number] [place] [phone] [facility] Social History Tobacco Use Types [...] on filedocumented in this encounter Care Teams Hse Manager Relationship Specialty Start [place] N[place] [id number] [place] [address] [phone] PCP - General Family Practice 03/19/11 [place] [address] [place] [address] PCP - Assigned PCP 07/14/16 10/20/18 [place] [address] [place] [address] Assigned PCP 07/14/16 08/02/22 [place] [address] [place] [address] Assigned PCP 10/12/22 11/15/22 documented as of this encounter
--- OUTSIDE RECORDS SUMMARY | 2023-11-28 09:57 | XMS_ITS | Encounter Summary ---
Author Name Unknown Organization [facility] Address [address] [place] [address]. [place] [address] Care Team Providers Care Crystal Inspector Name Role Phone Noy Major MD Primary Care Provider [phone] Noy Major MD Unavailable Noy Major MD Unavailable Noy Major MD Unavailable Reason for Visit * Reason Onset Date Comments MyChart Communication 11/12/2014 tramadol Encounter Details Date Type Department Care Team (Latest Contact Info) Description 11/12/2014 [facility] [address] [phone] [place] [id number] [place] [address] MyChart Communication (tramadol) Social History Tobacco [...] Lumbago documented in this encounter Care Teams Crystal Inspector Relationship Specialty [place] [address] [place] [address] PCP - General Family Practice 03/19/11 [place] [address] [place] [address] PCP - Assigned PCP 07/14/16 10/20/18 [place] [address] [place] [address] Assigned PCP 07/14/16 08/02/22 [place] [address] [place] [address] Assigned PCP 10/12/22 11/15/22 documented as of this encounter
--- OUTSIDE RECORDS SUMMARY | 2023-11-28 09:57 | XMS_ITS | Encounter Summary ---
Author Name Unknown Organization [facility] Address [address] [place] [address] Care Team Providers Care Crane Ladle Person Name Role Phone Noy Major MD Primary Care Provider [phone] Noy Major MD Unavailable Noy Major MD Unavailable Noy Major MD Unavailable Encounter Details Date Type Department Care Team (Late st Contact Info) Description 09/17/2012 [facility] [address] [phone] [facility] Social History Tobacco Use Types Packs/Day Years [...] on filedocumented in this encounter Care Teams Crane Ladle Person Relationship Specialty Start Date End Date Noy Major MD [id number] [place] [address] [phone] PCP - General Family Practice 03/19/11 [place] [address] [place] [address] PCP - Assigned PCP 07/14/16 10/20/18 [place] [address] [place] [address] Assigned PCP 07/14/16 08/02/22 [place] [address] [place] [address] Assigned PCP 10/12/22 11/15/22 documented as of this encounter
--- OUTSIDE RECORDS SUMMARY | 2023-11-28 09:57 | XMS_ITS | Encounter Summary ---
Author Name Unknown Organization [facility] Address [address] [place] [address] Care Team Providers Care Behavior Specialist Name Role Phone Noy Major MD Primary Care Provider [phone] Noy Major MD Unavailable Noy Major MD Unavailable Noy Major MD Unavailable Encounter Details Date Type Department Care Team (Late st Contact Info) Description 09/17/2013 [facility] [address] [phone] [facility] [...] on filedocumented in this encounter Care Teams Behavior Specialist Relationship Specialty Start Date [place] Noy [place] [id number] [place] [phone] PCP - General Family Practice 03/19/11 [place] [address] [place] [address] PCP - Assigned PCP 07/14/16 10/20/18 [place] [address] [place] [address] Assigned PCP 07/14/16 08/02/22 [place] [address] [place] [address] Assigned PCP 10/12/22 11/15/22 documented as of this encounter
--- OUTSIDE RECORDS SUMMARY | 2023-11-28 09:57 | XMS_ITS | Encounter Summary ---
Author Name Unknown Organization [facility] Address [address] [place] [address]. [place] [address] Care Team Providers Care Patternmaker Apprentice Metal Name Role Phone Noy Major MD Primary Care Provider [phone] Noy Major MD Unavailable Noy Major MD Unavailable Noy Major MD Unavailable Encounter Details Date Type Department Care Team (Late st Contact Info) Description 06/18/2011 [facility] Extended Documentation [address] [phone] Nazanin Holland [facility] [address] [place] [address], [address] [place], [place] Social History Tobacco Use Types Packs/Day [...] on filedocumented in this encounter Care Teams Patternmaker Apprentice Metal Relationship Specialty [place] [address] [place] [address] PCP - General Family Practice 03/19/11 [place] [address] [place] [address] PCP - Assigned PCP 07/14/16 10/20/18 [place] [address] [place] [address] Assigned PCP 07/14/16 08/02/22 [place] [address] [place] [address] Assigned PCP 10/12/22 11/15/22 documented as of this encounter
--- OUTSIDE RECORDS SUMMARY | 2023-11-28 09:57 | XMS_ITS | Clinical Summary ---
Author Name Unknown Organization [facility] Address [address] [place] [address] Care Team Providers Care Tan Room Supervisor Name Role Phone Chang Sims MD Primary [...] for each transition of care or referral. [facility] Allergies Active Allergy Reactions Criticality Noted [...] Comments Blood Pressure 137/91 06/22/2018 2:22 PM TECHNICAL PHOTOGRAPHER Pulse 98 06/22/2018 2:22 PM TECHNICAL PHOTOGRAPHER Temperature 36.7 ??C (98 ??F) 12/28/2002 8:30 PM CDT Respiratory Rate 20 12/04/2009 8:22 AM CDT Oxygen Saturation - - Inhaled Oxygen Concentration - - Weight 126.6 kg (279 lb) 06/22/2018 2:22 PM TECHNICAL PHOTOGRAPHER Height 185.4 cm (6' 1) 06/22/2018 2:22 PM TECHNICAL PHOTOGRAPHER Body Mass Index 36.81 06/22/2018 2:22 PM TECHNICAL PHOTOGRAPHER Plan of Treatment Health Maintenance Due Date [...] age to complete this topic Care Teams Tan Room Supervisor Relationship Specialty [place] [address] [place] [address] PCP - General 12/07/09
--- OUTSIDE RECORDS SUMMARY | 2023-11-28 09:57 | XMS_ITS | Encounter Summary ---
Author Name Unknown Organization [facility] Address [address] [place] [address] Care Team Providers Care Search Engine Optimization Consultant Name Role Phone Noy Major MD Primary Care Provider [phone] Noy Majro MD Unavailable Noy Major MD Unavailable Noy Major MD Unavailable Encounter Details Date Type Department Care Team (Late st Contact Info) Description 04/06/2011 [facility] [address] [phone] [facility] Social History Tobacco Use Types Packs/Day Years [...] on filedocumented in this encounter Care Teams Search Engine Optimization Consultant Relationship Specialty Start Date End Date Noy [place] [id number] [place] [address] [phone] PCP - General Family Practice 03/19/11 [place] [address] [place] [address] PCP - Assigned PCP 07/14/16 10/20/18 [place] [address] [place] [address] Assigned PCP 07/14/16 08/02/22 [place] [address] [place] [address] Assigned PCP 10/12/22 11/15/22 documented as of this encounter
--- OUTSIDE RECORDS SUMMARY | 2023-11-28 09:57 | XMS_ITS | Encounter Summary ---
Author Name Unknown Organization [facility] Address [address] [place] [address] Care Team Providers Care Bi Architect Name Role Phone Noy Major MD Primary Care Provider [phone] Noy Major MD Unavailable Noy Major MD Unavailable Noy Major MD Unavailable Encounter Details Date Type Department Care Team (Late st Contact Info) Description 03/27/2016 [facility] Medical Advice [address], [address] [place] [address] Yvonne Rivera, AUTO VINYL TOP INSTALLER Social History Tobacco Use Types Packs/Day Years [...] on filedocumented in this encounter Care Teams Bi Architect Relationship Specialty [place] [address] [place] [address] PCP - General Family Practice 03/19/11 [place] [address] [place] [address] PCP - Assigned PCP 07/14/16 10/20/18 [place] [address] [place] [address] Assigned PCP 07/14/16 08/02/22 [place] [address] [place] [address] Assigned PCP 10/12/22 11/15/22 documented as of this encounter
--- OUTSIDE RECORDS SUMMARY | 2023-11-28 09:57 | XMS_ITS | Encounter Summary ---
Author Name Unknown Organization [facility] Address [address] [place] [address]. [place] [address] Care Team Providers Care Case Operator Name Role Phone Noy Major MD Primary Care Provider [phone] Noy Major MD Unavailable Noy Major MD Unavailable Noy Major MD Unavailable Encounter Details Date Type Department Care Team (Late st Contact Info) Description 05/20/2011 [facility] [address] [phone] [place] [id number] [place] [address] Social History Tobacco Use Types Packs/Day [...] on filedocumented in this encounter Care Teams Case Operator Relationship Specialty [place] [address] [place] [address] PCP - General Family Practice 03/19/11 [place] [address] [place] [address] PCP - Assigned PCP 07/14/16 10/20/18 [place] [address] [place] [address] Assigned PCP 07/14/16 08/02/22 [place] [address] [place] [address] Assigned PCP 10/12/22 11/15/22 documented as of this encounter
--- OUTSIDE RECORDS SUMMARY | 2023-11-28 09:57 | XMS_ITS | Encounter Summary ---
Author Name Unknown Organization [facility] Address [address] [place] [address]. [place] [address] Care Team Providers Care Slot Key Person Name Role Phone Noy Major MD Primary Care Provider [phone] Noy Major MD Unavailable Noy Major MD Unavailable Noy Major MD Unavailable Encounter Details Date Type Department Care Team (Late st Contact Info) Description 09/22/2014 MyC Medical Advice [facility] [id number] [place] [phone] Yuridia Morales, CORRECTIONS SERGEANT Social History Tobacco Use Types Packs/Day Years [...] on filedocumented in this encounter Care Teams Slot Key Person Relationship Specialty Start Date [place] Noy [place] [id number] [place] [address] [phone] PCP - General Family Practice 03/19/11 [place] [address] [place] [address] PCP - Assigned PCP 07/14/16 10/20/18 [place] [address] [place] [address] Assigned PCP 07/14/16 08/02/22 [place] [address] [place] [address] Assigned PCP 10/12/22 11/15/22 documented as of this encounter
--- OUTSIDE RECORDS SUMMARY | 2023-11-28 09:57 | XMS_ITS | Encounter Summary ---
Author Name Unknown Organization [facility] Address [address] [place] [address]. [place] [address] Care Team Providers Care Automobile Assembler Name Role Phone Suresh Webster MD Primary Care Provider Unavailable Noy Major MD Primary Care Provider [phone] Noy Major MD Unavailable Noy Major MD Unavailable Noy Major MD Unavailable Reason for Visit * Reason Onset Date Comments MyChart Communication 01/11/2011 BP update Encounter Details Date Type Department Care Team (Latest Contact Info) Description 01/11/2011 My[facility] Medical Advice [address] [phone] Noy Major MD [address] [place] [address] MyChart Communication (BP update) Social History [...] on filedocumented in this encounter Care Teams Automobile Assembler Relationship Specialty Start Date End Date Suresh Webster MD PCP - General 07/22/03 03/18/11 [place] [address] [place] [address] PCP - General Family Practice 03/19/11 [place] [address] [place] [address] PCP - Assigned PCP 07/14/16 10/20/18 [place] [address] [place] [address] Assigned PCP 07/14/16 08/02/22 [place] [address] [place] [address] Assigned PCP 10/12/22 11/15/22 documented as of this encounter
--- OUTSIDE RECORDS SUMMARY | 2023-11-28 09:57 | XMS_ITS | Encounter Summary ---
Author Name Unknown Organization [facility] Address [address] [place] [address]. [place] [address] Care Team Providers Care Self Storage Manager Name Role Phone Suresh Webster MD Primary Care Provider Unavailable Noy Major MD Primary Care Provider Noy Major MD Unavailable Noy Major MD Unavailable Noy Major MD Unavailable Reason for Visit * Reason Onset Date Comments Hypertension 01/11/2011 Encounter Details Date Type Department Care Team (Late st Contact Info) Description 01/11/2011 My[facility] Medical Advice [address] [phone] Noy Major MD [address] [place] [address] Hypertension Social History Tobacco Use Types [...] on filedocumented in this encounter Care Teams Self Storage Manager Relationship Specialty Start Date End Date Suresh Webster MD PCP - General 07/22/03 03/18/11 [place] [address] [place] [address] PCP - General Family Practice 03/19/11 [place] [address] [place] [address] PCP - Assigned PCP 07/14/16 10/20/18 [place] [address] [place] [address] Assigned PCP 07/14/16 08/02/22 [place] [address] [place] [address] Assigned PCP 10/12/22 11/15/22 documented as of this encounter
--- OUTSIDE RECORDS SUMMARY | 2023-11-28 09:57 | XMS_ITS | Encounter Summary ---
Author Name Unknown Organization [facility] Address [address] [place] [address]. [place] [address] Care Team Providers Care Coal Handler Name Role Phone Noy Major MD Primary Care Provider [phone] Noy Major MD Unavailable Noy Major MD Unavailable Noy Major MD Unavailable Reason for Visit * Reason Onset Date Comments MyChart Communication 03/20/2011 back pain Encounter Details Date Type Department Care Team (Latest Contact Info) Description 03/20/2011 My[facility] Medical Advice [address] [phone] Noy Major MD [address] [place] [address] MyChart Communication (back pain) Social History [...] on filedocumented in this encounter Care Teams Coal Handler Relationship Specialty [place] [address] [place] [address] PCP - General Family Practice 03/19/11 [place] [address] [place] [address] PCP - Assigned PCP 07/14/16 10/20/18 [place] [address] [place] [address] Assigned PCP 07/14/16 08/02/22 [place] [address] [place] [address] Assigned PCP 10/12/22 11/15/22 documented as of this encounter
--- OUTSIDE RECORDS SUMMARY | 2023-11-28 09:57 | XMS_ITS | Encounter Summary ---
Author Name Unknown Organization [facility] Address [address] [place] [address]. [place] [address] Care Team Providers Care Demand Planning Analyst Name Role Phone Noy Major MD Primary Care Provider [phone] Noy Major MD Unavailable Noy Major MD Unavailable Noy Major MD Unavailable Reason for Visit * Reason Onset Date Comments Refill Request 05/17/2011 Zanaflex Encounter Details Date Type Department Care Team (Late st Contact Info) Description 05/17/2011 My[facility] Medical Advice [address] [phone] Noy Major MD [address] [place] [address] [phone] Refill Request (Zanaflex) Social History Tobacco Use [...] on filedocumented in this encounter Care Teams Demand Planning Analyst Relationship Specialty [place] [address] [place] [address] PCP - General Family Practice 03/19/11 [place] [address] [place] [address] PCP - Assigned PCP 07/14/16 10/20/18 [place] [address] [place] [address] Assigned PCP 07/14/16 08/02/22 [place] [address] [place] [address] Assigned PCP 10/12/22 11/15/22 documented as of this encounter
--- OUTSIDE RECORDS SUMMARY | 2023-11-28 09:57 | XMS_ITS | Encounter Summary ---
Author Name Unknown Organization [facility] Address [address] [place] [address]. [place] [address] Care Team Providers Care Third Loader Name Role Phone Noy Major MD Primary Care Provider [phone] Noy Major MD Unavailable Noy Major MD Unavailable Noy Major MD Unavailable Encounter Details Date Type Department Care Team (Late st Contact Info) Description 11/10/2014 [facility] [phone] [place] [phone] Vasile Mendieta, RN Social History Tobacco [...] on filedocumented in this encounter Care Teams Third Loader Relationship Specialty Start Date [place] Date Noy [place] [id number] [place] [address] [phone] PCP - General Family Practice 03/19/11 [place] [address] [place] [address] PCP - Assigned PCP 07/14/16 10/20/18 [place] [address] [place] [address] Assigned PCP 07/14/16 08/02/22 [place] [address] [place] [address] Assigned PCP 10/12/22 11/15/22 documented as of this encounter
--- OUTSIDE RECORDS SUMMARY | 2023-11-28 09:57 | XMS_ITS | Encounter Summary ---
Author Name Unknown Organization [facility] Address [address] [place] [address]. [place] [address] Care Team Providers Care Nuclear Equipment Operator Name Role Phone Noy Major MD Primary Care Provider [phone] Noy Major MD Unavailable Noy Major MD Unavailable Noy Major MD Unavailable Reason for Visit * Reason Onset Date Comments Pain 05/20/2011 Pain management Encounter Details Date Type Department Care Team (Late st Contact Info) Description 05/20/2011 [facility] [address] [phone] [place] [id number] [place] [address] [phone] Pain (Pain management) Social History Tobacco Use [...] on filedocumented in this encounter Care Teams Nuclear Equipment Operator Relationship Specialty [place] [address] [place] [address] PCP - General Family Practice 03/19/11 [place] [address] [place] [address] PCP - Assigned PCP 07/14/16 10/20/18 [place] [address] [place] [address] Assigned PCP 07/14/16 08/02/22 [place] [address] [place] [address] Assigned PCP 10/12/22 11/15/22 documented as of this encounter
--- OUTSIDE RECORDS SUMMARY | 2023-11-28 09:57 | XMS_ITS | Encounter Summary ---
Author Name Unknown Organization [facility] Address [address] [place] [address]. [place] [address] Care Team Providers Care Education Department Registrar Name Role Phone Suresh Webster MD Primary Care Provider Unavailable Noy Major MD Primary Care Provider [phone] Noy Major MD Unavailable Noy Major MD Unavailable Noy Major MD Unavailable Encounter Details Date Type Department Care Team (Late st Contact Info) Description 05/26/[address] [address] Pawel Palm MD FAMILY MEDICINE [facility] [address] [place] [address] DIAGNOSIS NOT YET DEFINED (Primary Dx) Social [...] encounter Progress Notes * 05/26/2003 11:59 PM [id number] 00:00 History And Physical-[facility] MATOS) [Entered: 00:00 Tr anscription ([facility])] CHIEF COMPLAINT: Alcohol dependence. HISTORY OF PRESENT ILLNESS: This is the f [facility] admission for Thuan Lopez who is a 42-year-old male. The patient is . He has an 11-year-old son. 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 The patient enters [facility] at this time on his [...] Essentially negative. The patie nt went to [facility] for an evaluation, and inpatient treatment [...] MATOS MD T : 05/27/2003 12:40 MT: [facility] Document: [id number] LCN: [id number] DSC: [place], [place] Name: MR#: : Admit Date: THUAN LOPEZ [id number] 1960 1 HISTORY AND PHYSICAL Page 2 of 2 Electronically filed by Luciana Merrill 05/31/2003 3:0 1 PM documented in this encounter Plan of Treatment Not on file documented as of this encounter Visit Diagnoses Diagnosis DIAGNOSIS NOT YET DEFINED- Primary documented in this encounter Care Teams Education Department Registrar Relationship Specialty Start Date End Date Suresh Webster MD PCP - General 07/22/03 03/18/11 [place] [address] [place] [address] PCP - General Family Practice 03/19/11 [place] [address] [place] [address] PCP - Assigned PCP 07/14/16 10/20/18 [place] [address] [place] [address] Assigned PCP 07/14/16 08/02/22 [place] [address] [place] [address] Assigned PCP 10/12/22 11/15/22 documented as of this encounter
--- OUTSIDE RECORDS SUMMARY | 2023-11-28 09:57 | XMS_ITS | Encounter Summary ---
Author Name Unknown Organization [facility] Address [address] [place] [address]. [place] [address] Care Team Providers Care Closing Supervisor Name Role Phone Noy Major MD Primary Care Provider Noy Major MD Unavailable Noy Major MD Unavailable Noy Major MD Unavailable Encounter Details Date Type Department Care Team (Late st Contact Info) Description 05/28/2011 My[facility] Medical Advice [address] [address] [place] [id number] [place] [id number] Moderate major depression (H) (Primary Dx) [...] moderate documented in this encounter Care Teams Closing Supervisor Relationship Specialty [place] [address] [place] [address] PCP - General Family Practice 03/19/11 [place] [address] [place] [address] PCP - Assigned PCP 07/14/16 10/20/18 [place] [address] [place] [address] Assigned PCP 07/14/16 08/02/22 [place] [address] [place] [address] Assigned PCP 10/12/22 11/15/22 documented as of this encounter
--- OUTSIDE RECORDS SUMMARY | 2023-11-28 09:57 | XMS_ITS | Encounter Summary ---
Author Name Unknown Organization [facility] Address [address] [place] [address] Care Team Providers Care Telecommunication Tower Technician Name Role Phone Suresh Webster MD Primary Care Provider Unavailable Noy Major MD Primary Care Provider Noy Major MD Unavailable Noy Major MD Unavailable Noy Major MD Unavailable Reason for Visit * Reason Onset Date Comments Refill Request 10/10/2010 tramadol Encounter Details Date Type Department Care Team (Late st Contact Info) Description 10/10/2010 MyC Refill [address] [address] Suresh Webster MD Refill Request [...] routed, need to fax Luli Goode RN [employer]ICE REP documented in this encounter Plan of Treatment Not on file documented as of this encounter Visit Diagnoses Diagnosis Lumbar radiculopathy Thoracic or lumbosacral neuritis or radiculitis, unspecified documented in this encounter Care Teams Telecommunication Tower Technician Relationship Specialty Start Date End Date Suresh Webster MD PCP - General 07/22/03 03/18/11 [place] [address] [place] [address] PCP - General Family Practice 03/19/11 [place] [address] [place] [address] PCP - Assigned PCP 07/14/16 10/20/18 [place] [address] [place] [address] Assigned PCP 07/14/16 08/02/22 [place] [address] [place] [address] Assigned PCP 10/12/22 11/15/22 documented as of this encounter
== END 2023-11-24 10:12 | disposition home or self-care (01) ==
LOC: NFLDREF 11-28 09:54
PROVIDERS: PCP Physician Assistant Medical; Referring Provider Physician Assistant Medical; Visit Provider Physician Assistant Medical
DX: I10 Essential (primary) hypertension (principal); R00.2 Palpitations; Z13.220 Encounter for screening for lipoid disorders; Z13.29 Encounter for screening for other suspected endocrine disorder; Z13.1 Encounter for screening for diabetes mellitus
CPT/HCPCS: 80053; 80061; 83036; 84443

== ENCOUNTER 2023-11-27 09:59 | Outpatient (CLI) | payer OTHER, SELFPAY ==
--- OUTSIDE RECORDS SUMMARY | 2023-11-27 10:02 | XMS_ITS | Clinical Summary ---
Author Name Unknown Organization [facility] Address [address] [place] [id number] Care Team Providers Care Education Counselor Name Role Phone Noy Major MD Primary Care Provider [phone] Allergies Active Allergy Reactions Criticality Noted Date Comments Dave Inhibitors Cough 08/20/2004 Fluoxetine Low 03/21/2010 Chest wall pain Medications Medication Sig Dispensed Refills Start Date End Date Status omeprazole (PRILOSEC) [address] capsuleIndications:Gas troesophageal reflux disease without esophagitis Take 1 capsule (20 mg) by mouth daily 90 capsule 3 02/08/2019 Active metoprolol succinate ER (TOPROL-XL) 50 MG 24 hr tabletIndications:Esse ntial hypertension,Ascending aorta dilatation (H24) TAKE 1 TABLET(50 MG) BY MOUTH DAILY 90 tablet 3 02/28/2020 Active methocarbamol (ROBAXIN) 500 MG tabletIndications:Musc le spasm Take 2 tablets (1,000 mg) by mouth 4 times daily as needed for muscle spasms 150 tablet 1 03/10/2020 Active DULoxetine (CYMBALTA) 60 MG capsuleIndications:Cer vical radiculopathy,Chronic neck pain Take 1 capsule (60 mg) by mouth daily 30 capsule 3 05/02/2020 Active pregabalin (LYRICA) 150 MG capsuleIndications:Lum bar radiculopathy Take 1 capsule (150 mg) by mouth 3 times daily 90 capsule 1 05/30/2020 Active amLODIPine (NORVASC) 5 MG tabletIndications:Esse ntial hypertension TAKE 1 TABLET(5 MG) BY MOUTH DAILY 90 tablet 08/16/2020 Active valsartan-hydrochlorot hiazide (DIOVAN HCT) 320-25 MG tabletIndications:Esse ntial hypertension with goal blood pressure less than 140/90 Take 1 tablet by mouth daily 90 tablet 08/23/2020 Active Active Problems Problem Noted Date Diagnosed Date Alcohol dependence in remission 10/11/2019 Cervical segment dysfunction 09/07/2019 Cervicalgia 09/07/2019 Somatic dysfunction of lumbar region 09/07/2019 Somatic dysfunction of sacral region 09/07/2019 Ascending aortic aneurysm (H24) 03/23/2018 Morbid obesity 12/22/2017 Erectile dysfunction, unspecified erectile dysfu nction type 12/22/2017 Thoracic aortic aneurysm without rupture (H24) 0 10/16/2017 Chronic bilateral low back pain without sciatica 05/09/2017 S/P cervical spinal fusion 03/21/2017 Cervical radiculopathy 03/13/2017 Bilateral low back pain with out sciatica, unspecified chronicity 11/12/2016 Essential hypertension 02/24/2016 Low back pain 11/27/2012 Overview: Diagnosis updated by automated process. Provider to review and confirm. Generalized anxiety disorder 06/10/2011 Chronic low back pain 05/16/2011 Insomnia 03/08/2011 Cystic disease of liver 02/06/2011 Impetigo 02/06/2011 Leg edema 02/06/2011 Moderate major depression 11/01/2010 CARDIOVASCULAR SCREENING; LDL GOAL LESS THAN 130 06/17/2010 Obesity 04/01/2006 Overview: Problem list name updated by automated process. Provider to review Headache 11/11/2005 Overview: Problem list name updated by automated process. Provider to review Resolved Problems Problem Noted Date Diagnosed Date Resolved Date Alcohol dependence in remission 03/10/2017 10/11/2019 HTN, goal below 140/90 10/28/201102/23 Low back pain 04/08/2011 11/12/2016 Mild major depression 03/21/20102010 Dysthymic disorder 04/01/2006 0 DISC DIS NEC/NOS-THORAC(aka THORACIC) 07/27/2004 10/16/2017 Major depressive disorder, s araceli episode, mild (H24) 01/04/2004 04/01/2006 Other and unspecified alcoho l dependence, unspecified drinking behavior 05/30/2003 08/25/2006 Immunizations Name Administration Dates Next Due DTaP, Unspecified 07/06/2008 HepA-Peds, Unspecified 07/22/2013 HepB, Unspecified 07/22/2013 Influenza (IIV3) PF 06/02/2011 MMR 07/22/2013 Pneumococcal 23 valent 08/27/2019 TDAP Vaccine (Adacel) 07/06/2008 Td (Adult), Adsorbed 07/22/2013,12/28/2002 Typhoid, Unspecified Formulation 07/22/2013 Yellow Fever 07/22/2013 Family History Medical History Relation Comments Arthritis Brother 3 Psychotic Disorder Brother 4 Alcohol/Drug Father Arthritis Father Cardiovascular Father Hypertension Father Prostate Cancer Maternal Grandfather Alzheimer Disease Maternal Grandmother Cerebrovascular Disease Maternal Grandmother Obesity Maternal Grandmother Arthritis Mother Obesity Mother Alcohol/Drug Paternal Grandfather Circulatory Paternal Grandfather Arthritis Sister 2 Relation Status Comments Brother 1 Alive Brother 2 Alive Brother 3 Brother 4 Father (Age 70) Maternal Grandfather Maternal Grandmother Mother Paternal Grandfather Paternal Grandmother Sister 1 Alive Sister 2 Social History Tobacco Use Types Packs/Day Years Used Date Smoking Tobacco: Never Smokeless Tobacco: Never Alcohol Use Standard Drinks/Week Comments Yes 0 (1 standard drink = 0.6 oz pur e alcohol) socially PHQ-2 Answer Date Recorded PHQ-2 Score 6 04/14/2018 Adolescent Education Answer Date Record ed Getting School Help Needed Not on file 05/25 Sex and Gender Information Value Date Recorded Sex Assigned at Male 02/10/2019 3:52 PM CDT Gender Identity Male 02/10/2019 3:52 PM CDT Sexual Orientation Straight 02/10/2019 3: 52 PM CDT Last Filed Vital Signs Vital Sign Reading Time Taken Comments Blood Pressure 128/86 02/29/2020 11:05 AM CDT Pulse 102 02/29/2020 11:05 AM CDT Temperature 36.7 ??C (98.1 ??F) 10/11/2019 10:[address] Respiratory Rate 18 10/11/2019 10:25 AM COFFIN MAKER Oxygen Saturation 96% 02/29/2020 11:05 AM CDT Inhaled Oxygen Concentration - - Weight 123.8 kg (273 lb) 02/29/2020 11:05 AM CDT Height 185.4 cm (6' 1) 10/11/2019 10:25 AM COFFIN MAKER Body Mass Index 36.02 10/11/2019 10:25 AM COFFIN MAKER Plan of Treatment Health Maintenance Due Date Last Done Comments ADVANCE CARE PLANNING 1961 CT COLONOGRAPHY 1961 FLEX SIG 1961 URINE DRUG SCREEN 1961 sDNA (Cologuard) 1961 COLONOSCOPY 1971 YEARLY PREVENTIVE VISIT 07/06/2009 07/06/2008 ZOSTER IMMUNIZATION (1 of 2) 2011 PHQ-9 01/19/2020 07/20/2019, 01/17, 12/22/2017, Additional history exists ANNUAL REVIEW OF HM ORDERS 08/27/2020 08/27/2019 COLORECTAL CANCER SCREENING 08/27/2020 FIT 08/27/2020 08/27/2019 CREATININE 09/20/2020 09/20/2019, 08/18, 02/08/2019, Additional history exists RSV VACCINE ( & 60+) (1 - 1-dose 60+ series) 2021 GLUCOSE 09/20/2022 09/20/2019, 08/18, 02/08/2019, Additional history exists COVID-19 Vaccine ( - 2022- season) 2023 INFLUENZA VACCINE (#1) 2023 06/02/2011 DTAP/TDAP/TD IMMUNIZATION (4 - Td or Tdap) 07/22/2023 07/22/2013, 07/06/2008, 07/06/2008, Additional history exists LIPID 02/09/2024 02/08/2019, 050 02/2018, 11/12/2016, Additional history exists HEPATITIS C SCREENING Completed 11/12/2016 DEPRESSION ACTION PLAN Completed 8, 11/21/2016, 11/21/2016, Additional history exists HIV SCREENING Completed 12/22/2017 Pneumococcal Vaccine: Pediatrics (0 to 5 Years) and At-Risk Patients (6 to 64 Years) Aged Out 08/27/2019 No longer eligible based on patient's age to complete this topic HPV IMMUNIZATION Aged Out No longer e ligible based on patient's age to complete this topic IPV IMMUNIZATION Aged Out No longer e ligible based on patient's age to complete this topic MENINGITIS IMMUNIZATION Aged Out No l onger eligible based on patient's age to complete this topic RSV MONOCLONAL ANTIBODY Aged Out No l onger eligible based on patient's age to complete this topic Medical Devices Implanted Type Area Slack Line Yarder Device Identifier Shelf Expiration Date Model / Serial / Lot Graft Bone Putty Dbx 01ml [id number] Implanted:Qty : 1 on 03/21/2017 by Mega Curry MD at [facility] Bone/Ti ssue/Bi ologic N/A: Spine Cervical MUSCULOSKELETAL ROSS 10/15/2018 [id number] / [id number] / Archon Plate Implanted:Qty : 1 on 03/21/2017 by Mega Curry MD at [facility] N/A: Spine Cervical [id number] / / [id number] 002 Archon Screw Implanted:Qty : 2 on 03/21/2017 by Mega Curry MD at [facility] N/A: Spine Cervical [id number] / / [id number] 002 Archon Screw Implanted:Qty : 2 on 03/21/2017 by Mega Curry MD at [facility] N/A: Spine Cervical [id number] / / [id number] 002 Cor Sm Acr Implanted:Qty : 1 on 03/21/2017 by Mega Curry MD at [facility] N/A: Spine Cervical [id number] / / [id number] 002 Procedures Procedure Name Priority Date/Time Associated Diagnosis Comments BASIC METABOLIC PANEL STAT 09/20/2019 10:33 AM COFFIN MAKER FECAL COLORECTAL CANCER SCREEN FIT Routine 08/27/2019 12:06 PM COFFIN MAKER Screen for colon cancer LIPID REFLEX TO DIRECT LDL PANEL Routine 02/08/2019 10:43 AM CDT Essential hypertension with goal blood pressure less than 140/90 HIV ANTIGEN ANTIBODY COMBO Routine 12/22/2017 8:39 AM CDT Essential hypertension with goal blood pressure less than 140/90 HEPATITIS C SCREEN REFLEX TO HCV RNA QUANT AND GENOTYPE Routine 11/12/2016 9:37 AM CDT Essential hypertension with goal blood pressure less than 140/90 from Last 3 Months or Most Recently Relevant to Health Maintenance Results * (ABNORMAL) Basic metabolic panel (BMP) (09/20/2019 10:33 AM COFFIN MAKER) Sodium 139 133 - 144 mmol/L 09/20/2019 12:04 PM [facility] Potassium 4.1 3.4 - 5.3 mmol/L 09/20/2019 12:04 PM [facility] Comment:Specimen slightly he molyzed, potassium may be falsely elevated Chloride 106 94 - 109 mmol/L 09/20/2019 12:04 PM [facility] Carbon Dioxide 27 20 - 32 mmol/L 09/20/2019 11:10 AM [facility] Anion Gap 6 3 - 14 mmol/L 09/20/2019 11:10 AM [facility] Glucose 105(H) 70 - 99 mg/dL 09/20/2019 11:10 AM [facility] Urea Nitrogen 10 7 - 30 mg/dL 09/20/2019 11:10 AM [facility] Creatinine 0.79 0.66 - 1.25 mg/dL 09/20/2019 11:10 AM [facility] GFR Estimate >90 >60 mL/min/{1. 73_m2} 09/20/2019 11:10 AM [facility] Comment: Non GFR Calc Starting 08/04/2018, serum creatinine based estimated GFR (eGFR) will be calculated using the Chronic Kidney Disease Epidemiology Collaboration (CKD-EPI) equation. GFR Estimate If Black >90 >60 mL/min/{1. 73_m2} 09/20/2019 11:10 AM [facility] Comment: GFR Calc Starting 08/04/2018, serum creatinine based estimated GFR (eGFR) will be calculated using the Chronic Kidney Disease Epidemiology Collaboration (CKD-EPI) equation. Calcium 9.5 8.5 - 10.1 mg/dL 09/20/2019 11:10 AM [facility] Blood specimen (specimen) 09/20/2019 10:33 AM COFFIN MAKER 09/20/2019 10:42 AM COFFIN MAKER Rocael Palencia MD LAB - BLOOD ORDER [facility] [address] [place] [address], [facility] [phone] * Fecal colorectal cancer screen FIT - Future (S+30) (08/27/2019 12:06 PM COFFIN MAKER) Occult Blood Scn FIT Negative NEG^Negati ve 09/01/2019 7:[address] [facility] Stool specimen (specimen) 08/27/2019 12:06 PM COFFIN MAKER 09/01/2019 12:07 PM COFFIN MAKER Noy Major MD LAB - STOOLS ORDERAB LES [facility] [address] [place] [address] * (ABNORMAL) Lipid panel reflex to direct LDL Fasting (02/08/2019 10:43 AM CDT) Cholesterol 162 <200 mg/dL 02/09/2019 11:04 AM CDT [facility] Triglycerides 276(H) <150 mg/dL 02/09/2019 11:04 AM CDT [facility] Comment: Borderline high: ??150-199 mg/dl High: ? 200-499 mg/dl Very high: ? >499 mg/dl Fasting specimen HDL Cholesterol 38(L) >39 mg/dL 9 11:10 AM CDT [facility] LDL Cholesterol Calculated 69 <100 mg/dL 02/09/2019 11:10 AM CDT [facility] Comment:Desirable: <100 mg/d l Non HDL Cholesterol 124 <130 mg/dL 02/09/2019 11:10 AM CDT [facility] Blood specimen (specimen) 02/08/2019 10:43 AM CDT 02/08/2019 10:44 AM CDT Noy Major MD LAB - BLOOD ORDERABL ES [facility] [address] [place] [address] * HIV Antigen Antibody Combo (12/22/2017 8:39 AM CDT) HIV Antigen Antibody Combo Nonreactive NR^Nonrea ctive 12/22/2017 8:[address] [facility] Comment:HIV-1 p24 Ag & HIV-1 /HIV-2 Ab Not Detected Blood specimen (specimen) 12/22/2017 8:39 AM CDT 12/22/2017 8:40 AM CDT Noy Major MD LAB - BLOOD ORDERABL ES Performing Organization Address City/[facility]/ZIP Co de Phone Number [facility] [address] [place] [address] * Hepatitis C Screen Reflex to HCV RNA Quant and Genotype (11/12/2016 9:37 AM CDT) Hepatitis C Antibody Nonreactive Assay performance characteristics have not been established for newborns, infants, and children NR [facility] Blood specimen (specimen) 11/12/2016 9:37 AM CDT 11/12/2016 9:38 AM CDT Noy Major MD LAB - BLOOD ORDERABL ES [facility] [address] [place] [address] from Last 3 Months or Most Recently Relevant to Health Maintenance Insurance Payer Benefit Plan / Group Subscriber ID Effective Dates Phone Address Type Ultrasound Medical Devices OPEN ACCESS [id number] 08/18/2010-Pres ent [address] [place] [address] HMO Advance Directives For more information, please contact: [phone] * Full Code (Latest Code Status on File) Date Activated Date Inactivated Comments 03/22/2017 9:49 AM 09/20/2019 10:11 AM * Full Code Date Activated Date Inactivated Comments 03/21/2017 5:02 PM 03/22/2017 9:49 AM Care Teams Education Counselor Relationship Specialty [place] [address] [place] [address] PCP - General Family Practice 03/19/11
--- OUTSIDE RECORDS SUMMARY | 2023-11-27 10:02 | XMS_ITS | Clinical Summary ---
Author Name Unknown Organization [employer] [facility] Address [place], [place] [address] Care Team Providers Care Location Manager Name Role Phone Noy Major MD Primary Care Provider [phone] Allergies Active Allergy Reactions Criticality Noted Date Comments Dave Inhibitors Cough 08/20/2004 Amoxicillin Rash 12/28/2002 rash Fluoxetine Chest Pain Low 03/21/2010 Chest wall pain Medications Medication Sig Dispensed Refills Start Date End Date Status tramadol (ULTRAM) 50 mg tablet Take 1 tablet by mouth. Take 1-2 tabs twice per day for Osteoarthritis pain 0 04/11/2010 Active amLODIPine (NORVASC) 5 mg tablet Take 1 tablet by mouth once daily. 0 04/11/2010 Active citalopram (CELEXA) 20 mg tablet Take 1 tablet by mouth once daily. 0 04/11/2010 Active gabapentin (NEURONTIN) 600 mg tablet Take 600 mg by mouth. 12/22/2017 Act man ibuprofen (ADVIL; MOTRIN) 800 mg tablet Take 800 mg by mouth. 12/22/2017 Act man valsartan-hydrochl orothiazide (DIOVAN HCT) 160-25 mg per tablet TK 1 T PO D 3 04/04/2018 Active OMEPRAZOLE ORAL Active DULoxetine (CYMBALTA) 60 mg Delayed-release capsule Take 60 mg by mouth. 08/17/2019 Acti ve methocarbamol (ROBAXIN) 750 mg tablet Take 750 mg by mouth. 09/14/2019 Act man pregabalin (LYRICA) 100 mg capsule Take 100 mg by mouth. 2019 Act man Encounters Date Type Department Care Team Description 11/27/2023 9:30 AM CDT Office Visit [facility] [address] [place] [address] Isai Vargas MD Arrived from Last 3 Months Immunizations Name Administration Dates Next Due Tdap 06/18/2020() Social History Tobacco Use Types Packs/Day Years Used Date Smoking Tobacco: Never Smokeless Tobacco: Never Alcohol Use Standard Drinks/Week Comments Yes 12 (1 standard drink = 0.6 oz pu re alcohol) Social Connections Answer Date Recorded Frequency of Communication with Friends and Fami ly Not on file 11/27/2023 Sex and Gender Information Value Date Recorded Sex Assigned at Not on file Gender Identity Not on file Sexual Orientation Not on file Obstetrics History Last Filed Vital Signs Vital Sign Reading Time Taken Comments Blood Pressure 134/88 06/18/2020 3:27 PM CAP AND HAT PRODUCTION SUPERVISOR Pulse 70 06/18/2020 3:27 PM CAP AND HAT PRODUCTION SUPERVISOR Temperature 36.6 ??C (97.8 ??F) 06/18/2020 5:24 PM CS T Respiratory Rate 16 06/18/2020 3:27 PM [employer] AND HAT [employer]ODUCTION SUPERVISOR Oxygen Saturation 96% 06/18/2020 3:27 PM CAP AND HAT PRODUCTION SUPERVISOR Inhaled Oxygen Concentration - - Weight 127 kg (280 lb) 06/18/2020 3:27 PM CAP AND HAT PRODUCTION SUPERVISOR Height 188 cm (6' 2) 06/18/2020 3:27 PM CAP AND HAT PRODUCTION SUPERVISOR Body Mass Index 35.95 06/18/2020 3:27 PM CAP AND HAT PRODUCTION SUPERVISOR Plan of Treatment Health Maintenance Due Date Last Done Comments Tdap 1972 Depression screening for age 12+ 1973 HIV for age 15-65 1976 BMI (ht and wt on same day) for age 18+ 1979 Hepatitis C screening for ag e 18-79 1979 Tetanus booster 1981 Colonoscopy through age 75 2006 Lipids for age 45-75 2006 Zoster (shingles) series for age 50+ (1 of 2) 2011 COVID-19 vaccine series (2022-24 season) 2023 Influenza for age 50-64 04/18/2024 Pneumococcal series for age 6-64 Aged Out No longer eligible based on patient's age to complete this topic Care Teams Location Manager Relationship Specialty [place] [address] [place] [address] PCP - General Family Practice 04/13/18
--- OUTSIDE RECORDS SUMMARY | 2023-11-27 10:03 | XMS_ITS | Encounter Summary ---
Author Name Unknown Organization [facility] Address [address] [place] [address] Care Team Providers Care Administrative Coordinator Name Role Phone Noy Major MD Primary Care Provider [phone] Noy Major MD Unavailable Noy Major MD Unavailable Noy Major MD Unavailable Encounter Details Date Type Department Care Team (Late st Contact Info) Description 09/08/2012 [facility] [address] [id number] [facility] Social History Tobacco Use Types Packs/Day Years Used Date Smoking Tobacco: Never Smokeless Tobacco: Never Alcohol Use Standard Drinks/Week Comments No 0 (1 standard drink = 0.6 oz pure alcohol) Detox hx. Discharged 05/28/2003 Sex and Gender Information Value Date Recorded Sex Assigned at Male 02/10/2019 3:52 PM CDT Gender Identity Male 02/10/2019 3:52 PM CDT Sexual Orientation Straight 02/10/2019 3: 52 PM CDT documented as of this encounter Plan of Treatment Not on file documented as of this encounter Visit Diagnoses Not on filedocumented in this encounter Care Teams Administrative Coordinator Relationship Specialty Start [place] [id number] [place] [id number] PCP - General Family Practice 03/19/11 [place] [address] [place] [address] PCP - Assigned PCP 07/14/16 10/20/18 [place] [address] [place] [address] Assigned PCP 07/14/16 08/02/22 [place] [address] [place] [address] Assigned PCP 10/12/22 11/15/22 documented as of this encounter
--- OUTSIDE RECORDS SUMMARY | 2023-11-27 10:03 | XMS_ITS | Encounter Summary ---
Author Name Unknown Organization [facility] Address [address] [place] [address] Care Team Providers Care Market Master Name Role Phone Noy Major MD Primary Care Provider [phone] Noy Major MD Unavailable Noy Major MD Unavailable Reason for Visit * Reason Onset Date Comments Patient/info Update 08/31/2019 post T1-2 in terlaminar epidural steroid injection Encounter Details Date Type Department Care Team (Late st Contact Info) Description 08/31/2019 [facility] [address] [place] [address] [place] [address] [place] [address] Patient/info Update (post T1-2 interlaminar epidural steroid injection) Social History Tobacco Use Types Packs/Day Years Used Date Smoking Tobacco: Never Smokeless Tobacco: Never Alcohol Use Standard Drinks/Week Comments Yes 0 (1 standard drink = 0.6 oz pur e alcohol) socially PHQ-2 Answer Date Recorded PHQ-2 Score 6 04/14/2018 Sex and Gender Information Value Date Recorded Sex Assigned at Male 02/10/2019 3:52 PM CDT Gender Identity Male 02/10/2019 3:52 PM CDT Sexual Orientation Straight 02/10/2019 3: 52 PM CDT documented as of this encounter Miscellaneous Notes * Telephone Encounter - Guy Andrade - 08/31/2019 11:46 AM CST Patient had a T1-2 interlaminar epidural steroid injection on 08/24/19. Called patient for an update. Pt reported the following details: Some of the pain has been alleviated, up into the trapezoid muscles. Told patient that the information will be forwarded to her provider. Also explained that, if a steroid medication was used, it could take up to 14 days to feel the full effect and if pt has any further questions or concerns pt should call the clinic at [phone]. T WORKER documented in this encounter Plan of Treatment Not on file documented as of this encounter Visit Diagnoses Not on filedocumented in this encounter Additional Health Concerns Assessment Noted Time PHQ-9 Depression Total Score: 3 07/21/20 19 7:04 AM VAULT WORKER documented as of this encounter Care Teams Market Master Relationship Specialty [place] [address] [place] [address] PCP - General Family Practice 03/19/11 [place] [address] [place] [address] Assigned PCP 07/14/16 08/02/22 [place] [address] [place] [address] Assigned PCP 10/12/22 11/15/22 documented as of this encounter
--- OUTSIDE RECORDS SUMMARY | 2023-11-27 10:03 | XMS_ITS | Encounter Summary ---
Author Name Unknown Organization [facility] Address [address] [place] [address]. [place] [address] Care Team Providers Care Riprap Worker Name Role Phone Noy Major MD Primary Care Provider [phone] Noy Major MD Unavailable Noy Major MD Unavailable Noy Major MD Unavailable Encounter Details Date Type Department Care Team (Late st Contact Info) Description 11/10/2014 [facility] Medical Advice [facility] [id number] [place] [phone] Vasile Mendieta, RN Social History Tobacco Use Types Packs/Day Years [...] on filedocumented in this encounter Care Teams Riprap Worker Relationship Specialty Start Date End Date Noy Major MD [id number] [place] [address] [phone] PCP - General Family Practice 03/19/11 [place] [address] [place] [address] PCP - Assigned PCP 07/14/16 10/20/18 [place] [address] [place] [address] Assigned PCP 07/14/16 08/02/22 [place] [address] [place] [address] Assigned PCP 10/12/22 11/15/22 documented as of this encounter
--- OUTSIDE RECORDS SUMMARY | 2023-11-27 10:03 | XMS_ITS | Encounter Summary ---
Author Name Unknown Organization [facility] Address [address] [place] [address]. [place] [address] Care Team Providers Care Coverage Analyst Name Role Phone Noy Major MD Primary Care Provider [phone] Noy Major MD Unavailable Noy Major MD Unavailable Reason for Visit * Reason Comments Medication Refill Encounter Details Date Type Department Care Team (Late st Contact Info) Description 02/02/[address] [phone] [place]oy Major MD [id number] [place] [address] Medication Refill Social History Tobacco Use Types Packs/Day Years [...] encounter Miscellaneous Notes * Telephone Encounter - Noy Major MD - 02/03/2020 9:23 AM CDT JUANCHO Hess: I wonder what break medications means, to me it sounds like pt has stopped the medicine and now he want to get back again on it. Is that correct? * Telephone Encounter - Jimena Jay RN - 02/02/2020 4:42 PM CDT Routing refill request to provider for review/approval because: A break in medication Jimena Jay RN [facility] -- Triage Nurse documented in this encounter Plan of Treatment Not on file documented as of this encounter Visit Diagnoses Diagnosis Essential hypertension Unspecified essential hypertension documented in this encounter Additional Health Concerns Assessment Noted Time PHQ-9 Depression Total Score: 3 07/21/20 19 7:04 AM PLASMA CENTER NURSE documented as of this encounter Care Teams Coverage Analyst Relationship Specialty [place] [address] [place] [address] PCP - General Family Practice 03/19/11 [place] [address] [place] [address] Assigned PCP 07/14/16 08/02/22 [place] [address] [place] [address] Assigned PCP 10/12/22 11/15/22 documented as of this encounter
--- OUTSIDE RECORDS SUMMARY | 2023-11-27 10:03 | XMS_ITS | Encounter Summary ---
Author Name Unknown Organization [facility] Address [address] [place] [address]. [place] [address] Care Team Providers Care Inside Upholsterer Name Role Phone Noy Major MD Primary Care Provider [phone] Noy Major MD Unavailable Noy Major MD Unavailable Noy Major MD Unavailable Encounter Details Date Type Department Care Team (Late st Contact Info) Description 04/18/2017 [facility] Medical Advice [facility] Neurological [address] [phone] Mega Curry MD [facility] [address] [place] [address] Social History Tobacco Use Types Packs/Day Years Used Date Smoking Tobacco: Never Smokeless Tobacco: Never Alcohol Use Standard Drinks/Week Comments Yes 0 (1 standard drink = 0.6 oz pur e alcohol) socially Sex and Gender Information Value Date Recorded [...] Assessment Noted Time PHQ-9 Depression Total Score: 0 04/07/20 17 7:11 AM CDT documented as of this encounter Care Teams Inside Upholsterer Relationship Specialty [place] [address] [place] [address] PCP - General Family Practice 03/19/11 [place] [address] [place] [address] PCP - Assigned PCP 07/14/16 10/20/18 [place] [address] [place] [address] Assigned PCP 07/14/16 08/02/22 [place] [address] [place] [address] Assigned PCP 10/12/22 11/15/22 documented as of this encounter
--- OUTSIDE RECORDS SUMMARY | 2023-11-27 10:03 | XMS_ITS | Encounter Summary ---
Author Name Unknown Organization [facility] Address [address] [place] [address] Care Team Providers Care Duplicator Punch Operator Name Role Phone Noy Major MD Primary Care Provider [phone] Noy Major MD Unavailable Noy Major MD Unavailable Reason for Visit * Reason Onset Date Comments Patient/info Update 03/02/2020 Encounter Details Date Type Department Care Team (Late st Contact Info) Description 03/02/2020 Telephone [facility] Pain Management [address] [place] [address] Heiid Morgan, MOTORCYCLE RIDING INSTRUCTOR [facility] [address] [place] [address] Patient/info Update Social History Tobacco Use Types Packs/Day Years [...] Orientation Straight 02/10/2019 3: 52 PM CDT COVID-19 Exposure Response Date Recorded In the last month, have you been in contact with someone who was confirmed or suspected to have Coronavirus / COVID-19? No / Unsure 02/29/2020 10:52 AM CDT documented as of this encounter Miscellaneous Notes * Telephone Encounter - Dolores Islas - 03/02/2020 12:57 PM CDT LVM: schedule follow up visit- in person or video, in 6 weeks Dolores Islas Forder Operator [facility] documented in this encounter Plan of Treatment Not on file documented as of this encounter Visit Diagnoses Not on filedocumented in this encounter Additional Health Concerns Assessment Noted Time PHQ-9 Depression Total Score: 3 07/21/20 19 7:04 AM MEAT DRESSER documented as of this encounter Care Teams Duplicator Punch Operator Relationship Specialty [place] [address] [place] [address] PCP - General Family Practice 03/19/11 [place] [address] [place] [address] Assigned PCP 07/14/16 08/02/22 [place] [address] [place] [address] Assigned PCP 10/12/22 11/15/22 documented as of this encounter
--- OUTSIDE RECORDS SUMMARY | 2023-11-27 10:03 | XMS_ITS | Encounter Summary ---
Author Name Unknown Organization [facility] Address [address] [place] [address]. [place] [address] Care Team Providers Care Ferry Pilot Name Role Phone Noy Major MD Primary Care Provider [phone] Noy Major MD Unavailable Noy Major MD Unavailable Reason for Visit * Reason Onset Date Comments Outreach 10/02/2019 [facility] ATT 1 Encounter Details Date Type Department Care Team (Late st Contact Info) Description 10/02/2019 Telephone [facility] Centralized Scheduling [facility] [place] [address] [place] [address] [place] [address] Outreach ([facility] COLON ATT 1 ) Social History Tobacco Use Types Packs/Day Years [...] encounter Miscellaneous Notes * Telephone Encounter - Amina Camarena - 10/02/2019 9:45 AM CST 10/02/2019 Call Regarding Preventive Health Screening Colonoscopy and ReattributionPhysical Attempt 1 Message on voicemail Outreach Harp Repairer KT Y PILOT documented in this encounter Plan of Treatment Not on file documented as of this encounter Visit Diagnoses Not on filedocumented in this encounter Additional Health Concerns Assessment Noted Time PHQ-9 Depression Total Score: 3 07/21/20 19 7:04 AM FERRY PILOT documented as of this encounter Care Teams Ferry Pilot Relationship Specialty [place] [address] [place] [address] PCP - General Family Practice 03/19/11 [place] [address] [place] [address] Assigned PCP 07/14/16 08/02/22 [place] [address] [place] [address] Assigned PCP 10/12/22 11/15/22 documented as of this encounter
--- OUTSIDE RECORDS SUMMARY | 2023-11-27 10:03 | XMS_ITS | Encounter Summary ---
Author Name Unknown Organization [facility] Address [address] [place] [address]. [place] [address] Care Team Providers Care Director Of Human Resources Name Role Phone Noy Major MD Primary Care Provider [phone] Noy Major MD Unavailable Noy Major MD Unavailable Encounter Details Date Type Department Care Team (Late st Contact Info) Description 08/19/2019 [facility] [place] [facility] Pain Management [address] [place] [address] Malena Barrientos Social History Tobacco Use Types Packs/Day Years [...] Total Score: 3 07/21/20 19 7:04 AM CPR INSTRUCTOR documented as of this encounter Care Teams Director Of Human Resources Relationship Specialty [place] [address] [place] [address] PCP - General Family Practice 03/19/11 [place] [address] [place] [address] Assigned PCP 07/14/16 08/02/22 [place] [address] [place] [address] Assigned PCP 10/12/22 11/15/22 documented as of this encounter
--- OUTSIDE RECORDS SUMMARY | 2023-11-27 10:03 | XMS_ITS | Encounter Summary ---
Author Name Unknown Organization [facility] Address [address] [place] [address] Care Team Providers Care Complex Care Nurse Practitioner Name Role Phone Noy Major MD Primary Care Provider Noy Major MD Unavailable Noy Major MD Unavailable Reason for Visit * Reason Onset Date Comments Procedure 03/09/2019 C7-T1 interlamin ar epidural steroid injection Encounter Details Date Type Department Care Team (Late st Contact Info) Description 03/09/2019 Telephone [facility] Pain Management [address] [place] [address] Heidi Morgan, QUILL WORKER [facility] [address] [place] [address] Procedure (C7-T1 interlaminar epidural steroid injection ) Social History Tobacco Use Types Packs/Day [...] encounter Miscellaneous Notes * Telephone Encounter - Saba Cooney 03/09/2019 11:53 AM CDT Pt will call back to schedule Pre-screening Questions for Radiology Injections: Injection to be done at which interventional clinic site? [facility] Instruct patient to arrive as directed prior to the scheduled appointment time: ?? [place]: 30 minutes before ?? [place]: 30 minutes before; if IV needed 1 hour before Procedure ordered by Cathy Procedure ordered? C7-T1 interlaminar epidural steroid injection ??? Transforaminal Cervical HUGO - Dr. Leandra Martinez ONLY What insurance would patient like us to bill for this procedure? HP ?? Worker's comp or MVA (motor vehicle accident) -Any injection DO NOT SCHEDULE and route to Altagracia Derick. ?? [employer] insurance - For SI joint injections, DO NOT SCHEDULE and route Altagracia Derick. ?? [employer] - Any injection besides hip/shoulder/knee joint DO NOT SCHEDULE and route to Altagracia Derick.She will obtain PA and call pt back to schedule procedure or notify pt of denial. ?? [place] [employer]-Route to Altagracia for review ?? IF SCHEDULING IN [place] AND NEEDS A PA, IT IS OKAY TO SCHEDULE. [place] HANDLES THEIR OWN PA'S AFTER THE PATIENT IS SCHEDULED. PLEASE SCHEDULE AT LEAST 1 WEEK OUT SO A PA CAN BE OBTAINED. Any chance of ? NO If YES, do NOT schedule and route to lubricator granulator Is an city supervisor needed? No Patient has a drive home? (mandatory) YES: ok Is patient taking any blood thinners (plavix, coumadin, jantoven, warfarin, heparin, pradaxa or dabigatran )? No If hold needed, do NOT schedule, route to lubricator granulator Is patient taking any aspirin products (includes Excedrin and Fiorinal)? No ?? If more than 325mg/day do NOT schedule; route to lubricator granulator ?? For CERVICAL procedures, hold all aspirin products for 6 days. ?? Tell pt that if aspirin product is not held for 6 days, the procedure WILL BE cancelled. Does the patient have a bleeding or clotting disorder? No ?? If YES, okay to schedule AND route to RN nurse pool ?? For any patients with platelet count <100, must be forwarded to provider Is patient diabetic? No If YES, have them bring their glucometer. Does patient have an active infection or treated for one within the past week? No Is patient currently taking any antibiotics? No ?? For patients on chronic, preventative, or prophylactic antibiotics, procedures may be scheduled. ?? For patients on antibiotics for active or recent infection:antibiotic course must have been completed for 4 days Is patient currently taking any steroid medications? (i.e. Prednisone, Medrol) No ?? For patients on steroid medications, course must have been completed for 4 days Reviewed with patient: If you are started on any steroids or antibiotics between now and your appointment, you must contact us because the procedure may need to be cancelled. Yes Is patient actively being treated for cancer or immunocompromised? No If YES, do NOT schedule and route to lubricator granulator Are you able to get on and off an exam table with minimal or no assistance? Yes If NO, do NOT schedule and route to lubricator granulator Are you able to roll over and lay on your stomach with minimal or no assistance? Yes If NO, do NOT schedule and route to lubricator granulator Any allergies to contrast dye, iodine, shellfish, or numbing and steroid medications? No If YES, route to lubricator granulator AND add allergy information to appointment notes Allergies: Dave inhibitors and Fluoxetine Has the patient had a flu shot or any other vaccinations within 7 days before or after the procedure. No Does patient have an MRI/CT? YES: MRI (SI joint, hip injections, lumbar sympathetic blocks, and stellate ganglion blocks do not require an MRI) ?? Was the MRI done w/in the last 3 years? Yes ?? Was MRI done at [facility]? Yes ?? If not, where was it done? N/A ?? If MRI was not done at [facility], [facility] or [facility] do NOT schedule and route to nursing. If pt has an imaging disc, the injection may be scheduled but pt has to bring disc to appt. If they show up w/out disc the injection cannot be done Reminders (please tell patient if applicable): ?? Instructed pt to arrive 30 minutes early for IV start if this is for a cervical procedure, ALL sympathetic (stellate ganglion, hypogastric, or lumbar sympathetic block) and all sedation procedures(RFA, spinal cord stimulation trials). YES: ok -IVs are not routinely placed for Dr. Salinas cervical cases -Dr. Sanford: IVs for cervical ESIs and cervical TBDs (not CMBBs/facet inj) ?? If NPO for sedation, informed patient that it is okay to take medications with sips of water (except if they are to hold blood thinners). Not Applicable *DO take blood pressure medication if it is prescribed* ?? If this is for a cervical HUGO, informed patient that aspirin needs to be held for 6 days. NO ?? For all patients not having spinal cord stimulator (SCS) trials or radiofrequency ablations (RFAs), informed patient: IV sedation is not provided for this procedure. If you feel that an oral anti- anxiety medication isneeded, you can discuss this further with your referring provider or primary care provider. The Pain Clinic provider will discuss specifics of what the procedure includes at your appointment. Most procedures last 10-20 minutes. We use numbing medications to help with any discomfort during the procedure. Not Applicable ?? Do not schedule procedures requiring IV placement in the first appointment of the day or first appointment after lunch. Do NOT schedule at 0745, 0815 or 1245. ok ?? For patients 85 or older we recommend having an adult stay w/ them for the remainder of the day.n/a Does the patient have any questions? NO Saba Cooney [facility] documented in this encounter Plan of Treatment Not on file documented as of this encounter Visit Diagnoses Not on filedocumented in this encounter Additional Health Concerns Assessment Noted Time PHQ-9 Depression Total Score: 18 019 7:03 AM CDT documented as of this encounter Care Teams Complex Care Nurse Practitioner Relationship Specialty [place] [address] [place] [address] PCP - General Family Practice 03/19/11 [place] [address] [place] [address] Assigned PCP 07/14/16 08/02/22 [place] [address] [place] [address] Assigned PCP 10/12/22 11/15/22 documented as of this encounter
--- OUTSIDE RECORDS SUMMARY | 2023-11-27 10:03 | XMS_ITS | Encounter Summary ---
Author Name Unknown Organization [facility] Address [address] [place] [address]. [place] [address] Care Team Providers Care Circle Shear Operator Name Role Phone Noy Major MD Primary Care Provider [phone] Noy Major MD Unavailable Noy Major MD Unavailable Noy Major MD Unavailable Reason for Visit * Reason Comments Medication Refill ibuprofen (ADVIL/MOT RIN) 800 MG tablet Encounter Details Date Type Department Care Team (Late st Contact Info) Description 09/14/[address] [phone] Noy Major MD [address] [place] [address] [phone] Medication Refill ( ibuprofen (ADVIL/MOTRIN) 800 MG tablet) Social History Tobacco Use Types Packs/Day Years [...] encounter Miscellaneous Notes * Telephone Encounter - Vasile Mendieta RN - 09/16/2018 12:22 PM CST Routing refill request to provider for review/approval because: Labs not current Vasile Mendieta RN POOER * Telephone Encounter - Nakita Mosley - 09/15/2018 9:52 AM CST Requested Prescriptions Pending Prescriptions Disp Refills ??? ibuprofen (ADVIL/MOTRIN) 800 MG tablet [Pharmacy Med Name: IBUPROFEN 800MG TABLETS] 180 tablet 0 Sig: TAKE 1 TABLET(800 MG) BY MOUTH EVERY 8 HOURS NEEDED FOR MODERATE PAIN NSAID Medications Failed - 09/14/2018 4:03 PM Failed - Normal CBC on file in past 12 months Recent Labs Lab Test 03/26/17 0350 WBC 8.2 RBC 3.91* HGB 12.7* HCT 37.1* PLT 161 Passed - Blood pressure under 140/90 in past 12 months BP Readings from Last 3 Encounters: 04/14/18 122/82 03/23/18 138/86 03/03/18 132/84 Passed - Normal ALT on file in past 12 months Recent Labs Lab Test 12/22/17 0839 ALT 64 Passed - Normal AST on file in past 12 months Recent Labs Lab Test 12/22/17 0839 AST 32 Passed - Recent (12 mo) or future (30 days) visit within the authorizing provider's specialty Patient had office visit in the last 12 months or has a visit in the next 30 days with authorizing provider or within the authorizing provider's specialty. See Patient Info tab in inbasket, or Choose Columns in Meds & Orders section of the refill encounter. Passed - Patient is age 6-64 years Passed - Medication is active on med list Passed - Normal serum creatinine on file in past 12 months Recent Labs Lab Test 12/22/17 0839 CR 0.89 Last Written Prescription Date: 12/22/2017 Last Fill Quantity: 180, # refills: 0 Last office visit: 04/14/2018 with prescribing provider: Dr Major Future Office Visit: POOER documented in this encounter Plan of Treatment Not on file documented as of this encounter Visit Diagnoses Diagnosis Bilateral low back pain without sciatica, unspecified chronicity documented in this encounter Additional Health Concerns Assessment Noted Time PHQ-9 Depression Total Score: 0 12/24/19 18 7:39 AM CDT documented as of this encounter Care Teams Circle Shear Operator Relationship Specialty [place] [address] [place] [address] PCP - General Family Practice 03/19/11 [place] [address] [place] [address] PCP - Assigned PCP 07/14/16 10/20/18 [place] [address] [place] [address] Assigned PCP 07/14/16 08/02/22 [place] [address] [place] [address] Assigned PCP 10/12/22 11/15/22 documented as of this encounter
--- OUTSIDE RECORDS SUMMARY | 2023-11-27 10:03 | XMS_ITS | Encounter Summary ---
Author Name Unknown Organization [facility] Address [address] [place] [address]. [place] [address] Care Team Providers Care Head Animal Trainer Name Role Phone Noy Major MD Primary Care Provider [phone] Noy Major MD Unavailable Noy Major MD Unavailable Noy Major MD Unavailable Encounter Details Date Type Department Care Team (Late st Contact Info) Description 11/20/2017 [facility] [place] [address] [phone] Tri De Jesus, SYSTEMS PROJECT MANAGER Social History Tobacco Use Types Packs/Day Years [...] Assessment Noted Time PHQ-9 Depression Total Score: 7 05/06/20 17 11:30 AM CDT documented as of this encounter Care Teams Head Animal Trainer Relationship Specialty [place] [address] [place] [address] PCP - General Family Practice 03/19/11 [place] [address] [place] [address] PCP - Assigned PCP 07/14/16 10/20/18 [place] [address] [place] [address] Assigned PCP 07/14/16 08/02/22 [place] [address] [place] [address] Assigned PCP 10/12/22 11/15/22 documented as of this encounter
--- OUTSIDE RECORDS SUMMARY | 2023-11-27 10:03 | XMS_ITS | Encounter Summary ---
Author Name Unknown Organization [facility] Address [address] [place] [address]. [place] [address] Care Team Providers Care Etl Lead Name Role Phone Noy Major MD Primary Care Provider [phone] Noy Major MD Unavailable Noy Major MD Unavailable Noy Major MD Unavailable Reason for Visit * Reason Onset Date Comments Refill Request 04/26/2016 Losartan Encounter Details Date Type Department Care Team (Late st Contact Info) Description 04/26/[address] [phone] [place] [id number] [place] [phone] Refill Request (Losartan) Social History Tobacco Use Types Packs/Day Years [...] Telephone Encounter - Vasile Mendieta RN - 04/26/2016 3:56 PM CDT Routing refill request to provider for review/approval because: Labs not current: * Telephone Encounter - DonalManohar - 04/26/2016 1:58 PM CDT Pending Prescriptions: Disp Refills losartan (COZAAR) 100 MG tablet 90 tab*1 Sig: Take 1 tablet (100 mg) by mouth daily Last Written Prescription Date: 08/31/2015 Last Fill Quantity: 90, # refills: 1 Last Office [place] with [facility] [place] [facility] or [facility] prescribing provider: 02/24/2016 POTASSIUM Date Value Ref Range Status 03/03/2015 3.9 3.4 - 5.3 mmol/L Final CREATININE Date Value Ref Range Status 03/03/2015 0.74 0.66 - 1.25 mg/dL Final BP Readings from Last 3 Encounters: 02/24/16 146/96 03/29/15 128/86 03/03/15 150/94 documented in this encounter Plan of Treatment Not on file documented as of this encounter Visit Diagnoses Diagnosis Benign essential hypertension- Primary Essential hypertension, benign documented in this encounter Care Teams Etl Lead Relationship Specialty [place] [address] [place] [address] PCP - General Family Practice 03/19/11 [place] [address] [place] [address] PCP - Assigned PCP 07/14/16 10/20/18 [place] [address] [place] [address] Assigned PCP 07/14/16 08/02/22 [place] [address] [place] [address] Assigned PCP 10/12/22 11/15/22 documented as of this encounter
--- OUTSIDE RECORDS SUMMARY | 2023-11-27 10:03 | XMS_ITS | Encounter Summary ---
Author Name Unknown Organization [facility] Address [address] [place] [address]. [place] [address] Care Team Providers Care Heel Layer Name Role Phone Noy Major MD Primary Care Provider [phone] Noy Major MD Unavailable Noy Major MD Unavailable Noy Major MD Unavailable Encounter Details Date Type Department Care Team (Late st Contact Info) Description 03/08/2015 My[facility] Medical Advice [facility] [address] [place] [phone] Anali Ndiaye, HEALTH INFORMATION TECHNICIAN Social History Tobacco Use Types Packs/Day Years [...] on filedocumented in this encounter Care Teams Heel Layer Relationship Specialty Start Date [place] Noy [place] [id number] [place] [address] [phone] PCP - General Family Practice 03/19/11 [place] [address] [place] [address] PCP - Assigned PCP 07/14/16 10/20/18 [place] [address] [place] [address] Assigned PCP 07/14/16 08/02/22 [place] [address] [place] [address] Assigned PCP 10/12/22 11/15/22 documented as of this encounter
--- OUTSIDE RECORDS SUMMARY | 2023-11-27 10:03 | XMS_ITS | Encounter Summary ---
Author Name Unknown Organization [facility] Address [address] [place] [address]. [place] [address] Care Team Providers Care Cotton Weigher Name Role Phone Noy Major MD Primary Care Provider [phone] Noy Major MD Unavailable Noy Major MD Unavailable Encounter Details Date Type Department Care Team (Late st Contact Info) Description 02/11/2019 [facility] Medical Advice [address], [address] [place] [address] Marce Velazquez, LEONARDA Social History Tobacco Use Types Packs/Day Years [...] Noted Time PHQ-9 Depression Total Score: 18 02/09/ 019 7:03 AM CDT documented as of this encounter Care Teams Cotton Weigher Relationship Specialty [place] [address] [place] [address] PCP - General Family Practice 03/19/11 [place] [address] [place] [address] Assigned PCP 07/14/16 08/02/22 [place] [address] [place] [address] Assigned PCP 10/12/22 11/15/22 documented as of this encounter
--- OUTSIDE RECORDS SUMMARY | 2023-11-27 10:03 | XMS_ITS | Encounter Summary ---
Author Name Unknown Organization [facility] Address [address] [place] [address]. [place] [address] Care Team Providers Care Hospital Admissions Officer Name Role Phone Noy Major MD Primary Care Provider [phone] Noy Major MD Unavailable Noy Major MD Unavailable Noy Major MD Unavailable Encounter Details Date Type Department Care Team (Late st Contact Info) Description 06/18/2011 [facility] Extended Documentation [address] [phone] Nazanin Holland [facility] [address] [place] [address], [address] [place], [place] Social History Tobacco Use Types Packs/Day Years [...] on filedocumented in this encounter Care Teams Hospital Admissions Officer Relationship Specialty [place] [address] [place] [address] PCP - General Family Practice 03/19/11 [place] [address] [place] [address] PCP - Assigned PCP 07/14/16 10/20/18 [place] [address] [place] [address] Assigned PCP 07/14/16 08/02/22 [place] [address] [place] [address] Assigned PCP 10/12/22 11/15/22 documented as of this encounter
--- OUTSIDE RECORDS SUMMARY | 2023-11-27 10:03 | XMS_ITS | Encounter Summary ---
Author Name Unknown Organization [facility] Address [address] [place] [address]. [place] [address] Care Team Providers Care Glass Beveler Name Role Phone Noy Major MD Primary Care Provider [phone] Noy Major MD Unavailable Noy Major MD Unavailable Noy Major MD Unavailable Encounter Details Date Type Department Care Team (Late st Contact Info) Description 09/22/2014 My[facility] Medical Advice [facility] [id number] [place] [phone] Yuridia Morales, CHICKEN AND FISH CLEANER Social History Tobacco Use Types Packs/Day Years [...] on filedocumented in this encounter Care Teams Glass Beveler Relationship Specialty Start [place] Noy [place] [id number] [place] [address] [phone] PCP - General Family Practice 03/19/11 [place] [address] [place] [address] PCP - Assigned PCP 07/14/16 10/20/18 [place] [address] [place] [address] Assigned PCP 07/14/16 08/02/22 [place] [address] [place] [address] Assigned PCP 10/12/22 11/15/22 documented as of this encounter
--- OUTSIDE RECORDS SUMMARY | 2023-11-27 10:03 | XMS_ITS | Encounter Summary ---
Author Name Unknown Organization [facility] Address [address] [place] [address]. [place] [address] Care Team Providers Care Lubrication Servicer Name Role Phone Noy Major MD Primary Care Provider [phone] Noy Major MD Unavailable Noy Major MD Unavailable Noy Major MD Unavailable Reason for Visit * Reason Onset Date Comments MyChart Communication 11/12/2014 tramadol Encounter Details Date Type Department Care Team (Latest Contact Info) Description 11/12/2014 [facility] [address] [phone] [place] [id number] [place] [phone] MyChart Communication (tramadol) Social History Tobacco Use Types Packs/Day Years [...] Telephone Encounter - Vasile Mendieta RN - 11/14/2014 9:54 AM CDT Yes, back pain. Patient informed and agrees to try gabapentin. Dosing instructions reviewed. He will send us a MyChart update in a week or two with progress update. Vasile Mendieta, RN * Telephone Encounter - Noy Major MD - 11/14/2014 8:13 AM CDT Please call Julio Cesar. Is he talking about his back pain?I Would he like to try Neurontin and see if thathelps? We can start gradually by 300 daily then go up to 300 three times daily, we can even go higher if needed. If this is becoming chronic pain, I may have to send him to pain clinic. Ultram is a very strong medications, and it is narcotic, it requires very close monitoring if he decide to be on it for long period. I sent the medicine to the pharmacy. documented in this encounter Plan of Treatment Not on file documented as of this encounter Visit Diagnoses Diagnosis LBP (low back pain)- Primary Lumbago documented in this encounter Care Teams Lubrication Servicer Relationship Specialty [place] [address] [place] [address] PCP - General Family Practice 03/19/11 [place] [address] [place] [address] PCP - Assigned PCP 07/14/16 10/20/18 [place] [address] [place] [address] Assigned PCP 07/14/16 08/02/22 [place] [address] [place] [address] Assigned PCP 10/12/22 11/15/22 documented as of this encounter
--- OUTSIDE RECORDS SUMMARY | 2023-11-27 10:03 | XMS_ITS | Encounter Summary ---
Author Name Unknown Organization [facility] Address [address] [place] [address] Care Team Providers Care Credit Rating Checker Name Role Phone Noy Major MD Primary Care Provider [phone] Noy Major MD Unavailable Noy Major MD Unavailable Noy Major MD Unavailable Encounter Details Date Type Department Care Team (Late st Contact Info) Description 09/17/2012 [facility] [address] [phone] [facility] Social History Tobacco Use Types Packs/Day Years [...] on filedocumented in this encounter Care Teams Credit Rating Checker Relationship Specialty Start [place] [id number] [place] [phone] PCP - General Family Practice 03/19/11 [place] [address] [place] [address] PCP - Assigned PCP 07/14/16 10/20/18 [place] [address] [place] [address] Assigned PCP 07/14/16 08/02/22 [place] [address] [place] [address] Assigned PCP 10/12/22 11/15/22 documented as of this encounter
--- OUTSIDE RECORDS SUMMARY | 2023-11-27 10:03 | XMS_ITS | Encounter Summary ---
Author Name Unknown Organization [facility] Address [address] [place] [address] Care Team Providers Care Inspector Of Weights And Measures Name Role Phone Noy Major MD Primary Care Provider [phone] Noy Major MD Unavailable Noy Major MD Unavailable Noy Major MD Unavailable Encounter Details Date Type Department Care Team (Late st Contact Info) Description 09/17/2013 [facility] [address] [phone] [facility] Social History Tobacco Use Types Packs/Day Years [...] on filedocumented in this encounter Care Teams Inspector Of Weights And Measures Relationship Specialty Start Date [place] N[place] [id number] [place] [phone] PCP - General Family Practice 03/19/11 [place] [address] [place] [address] PCP - Assigned PCP 07/14/16 10/20/18 [place] [address] [place] [address] Assigned PCP 07/14/16 08/02/22 [place] [address] [place] [address] Assigned PCP 10/12/22 11/15/22 documented as of this encounter
--- OUTSIDE RECORDS SUMMARY | 2023-11-27 10:03 | XMS_ITS | Encounter Summary ---
Author Name Unknown Organization [facility] Address [address] [place] [address]. [place] [address] Care Team Providers Care Culinary Arts Teacher Name Role Phone Noy Major MD Primary Care Provider [phone] Noy Major MD Unavailable Noy Major MD Unavailable Noy Major MD Unavailable Encounter Details Date Type Department Care Team (Late st Contact Info) Description 01/11/2014 [facility] Medical Advice [facility] [address] [place] [phone] Tri De Jesus, CONSTRUCTION EQUIPMENT OPERATOR Social History Tobacco Use Types Packs/Day Years [...] on filedocumented in this encounter Care Teams Culinary Arts Teacher Relationship Specialty Start Date [place] Date Noy [place] [id number] [place] [phone] PCP - General Family Practice 03/19/11 [place] [address] [place] [address] PCP - Assigned PCP 07/14/16 10/20/18 [place] [address] [place] [address] Assigned PCP 07/14/16 08/02/22 [place] [address] [place] [address] Assigned PCP 10/12/22 11/15/22 documented as of this encounter
--- OUTSIDE RECORDS SUMMARY | 2023-11-27 10:03 | XMS_ITS | Encounter Summary ---
Author Name Unknown Organization [facility] Address [address] [place] [address]. [place] [address] Care Team Providers Care Drum Maker Name Role Phone oNy Major MD Primary Care Provider [phone] Noy Major MD Unavailable Noy Major MD Unavailable Noy Major MD Unavailable Encounter Details Date Type Department Care Team (Late st Contact Info) Description 11/05/2017 [facility] [address] [phone] Vasile Mendieta, RN Social History Tobacco [...] documented as of this encounter Care Teams Drum Maker Relationship Specialty [place] [address] [place] [address] PCP - General Family Practice 03/19/11 [place] [address] [place] [address] PCP - Assigned PCP 07/14/16 10/20/18 [place] [address] [place] [address] Assigned PCP 07/14/16 08/02/22 [place] [address] [place] [address] Assigned PCP 10/12/22 11/15/22 documented as of this encounter
--- OUTSIDE RECORDS SUMMARY | 2023-11-27 10:03 | XMS_ITS | Encounter Summary ---
Author Name Unknown Organization [facility] Address [address] [place] [address]. [place] [address] Care Team Providers Care Cafeteria Team Leader Name Role Phone Noy Major MD Primary Care Provider [phone] Noy Major MD Unavailable Noy Major MD Unavailable Noy Major MD Unavailable Reason for Visit * Reason Onset Date Comments Refill Request 07/08/2016 Ibuprofen, Losar bajwa Encounter Details Date Type Department Care Team (Late st Contact Info) Description 07/08/[address] [phone] [place] [id number] [place] [address] Refill Request (Ibuprofen, Losartan) Social History Tobacco Use Types Packs/Day Years [...] encounter Miscellaneous Notes * Telephone Encounter - Dayna Davis RN - 07/10/2016 12:05 PM CST Routing refill request to provider for review/approval because: PT was seen today - Ok for refill Dayna Davis RN FITTER * Telephone Encounter - Kristin Levin - 07/08/2016 1:36 PM CST Ibuprofen Last Written Prescription Date: 05/28/16 Last Quantity: 90, # refills: 0 Last Office Visit with [facility], [facility] or [facility] prescribing provider: 02/24/16 Next 5 appointments (look out 90 days) Jul 10, 2016 8:00 AM Yamelt Brody with Noy Major [facility] [address] [place] [phone] CREATININE Date Value Ref Range Status 03/03/2015 0.74 0.66 - 1.25 mg/dL Final AST 44 02/06/2011 ALT 33 02/06/2011 BP Readings from Last 3 Encounters: 02/24/16 146/96 03/29/15 128/86 03/03/15 150/94 Losartan Last Written Prescription Date: 04/26/16 Last Fill Quantity: 30, # refills: 0 Last Office Visit with [facility], [facility] or [facility] prescribing provider: 02/24/16 Next 5 appointments (look out 90 days) Jul 10, 2016 8:00 AM Raffi Skinner with Noy Major MD [facility] [address] [place] [phone] POTASSIUM Date Value Ref Range Status 03/03/2015 3.9 3.4 - 5.3 mmol/L Final CREATININE Date Value Ref Range Status 03/03/2015 0.74 0.66 - 1.25 mg/dL Final BP Readings from Last 3 Encounters: 02/24/16 146/96 03/29/15 128/86 03/03/15 150/94 FITTER documented in this encounter Plan of Treatment Not on file documented as of this encounter Visit Diagnoses Diagnosis Chronic low back pain- Primary Lumbago Benign essential hypertension Essential hypertension, benign Acute bilateral low back pain without sciatica documented in this encounter Care Teams Cafeteria Team Leader Relationship Specialty [place] [address] [place] [address] PCP - General Family Practice 03/19/11 [place] [address] [place] [address] PCP - Assigned PCP 07/14/16 10/20/18 [place] [address] [place] [address] Assigned PCP 07/14/16 08/02/22 [place] [address] [place] [address] Assigned PCP 10/12/22 11/15/22 documented as of this encounter
--- OUTSIDE RECORDS SUMMARY | 2023-11-27 10:03 | XMS_ITS | Encounter Summary ---
Author Name Unknown Organization [facility] Address [address] [place] [address]. [place] [address] Care Team Providers Care Charge Accounts Audit Clerk Name Role Phone Noy Major MD Primary Care Provider [phone] Encounter Details Date Type Department Care Team (Latest Contact Info) Description 08/25/2023 Travel Social History Tobacco Use Types Packs/Day Years [...] Total Score: 3 07/21/20 19 7:04 AM DIRECTOR BUSINESS INTELLIGENCE documented as of this encounter Care Teams Charge Accounts Audit Clerk Relationship Specialty [place] [address] [place] [address] PCP - General Family Practice 03/19/11 documented as of this encounter
--- OUTSIDE RECORDS SUMMARY | 2023-11-27 10:03 | XMS_ITS | Encounter Summary ---
Author Name Unknown Organization [facility] Address [address] [place] [address]. [place] [address] Care Team Providers Care Ocean Export Coordinator Name Role Phone Noy Major MD Primary Care Provider [phone] Noy Major MD Unavailable Noy Major MD Unavailable Reason for Visit * Reason Comments Medication Refill Gabapentin Encounter Details Date Type Department Care Team (Late st Contact Info) Description 08/05/[address] [phone] [place] [id number] [place] [phone] Medication Refill (Gabapentin) Social History Tobacco Use Types Packs/Day Years [...] encounter Miscellaneous Notes * Telephone Encounter - Bev Waldron RN - 08/06/2019 7:[address] Major- saw pain clinic. Has not followed up since below visit. Upcoming appt with you 08/27/19. Not [facility] med. Sent to provider. Please advise. Bev Waldron RN Gabapentin Last RF 02/08/19 #270 RF x 1 03/09/2019 [facility] Plan: ?? 1. Pain Physical Therapy: Not at this time but can consider in the future. Continue daily stretchesand exercises. 2. Pain Psychologist to address relaxation, behavioral change, coping style, and other factors important to improvement. NO Could consider in the future. 3. Medication Management: 1. Gabapentin has been helpful for pain. He increased dose as directed to 800mg but has continued to take BID most days rather than TID. Of note he has been struggling to sleep at night. I advised anincrease to 800mg TID with third dose at bedtime. Does not need a refill. 2. Recommend an increase in Cymbalta, 60mg daily. As I do not want to make two medication changes at the same time I advised he wait 10-14 days prior to increasing. Prescription for 30mg and 60mg capsules sent to pharmacy (he is almost out of 30mg capsules). 4. Potential procedures: we discussed a cervical epidural steroid injection today. He is interestedin. Ordered. They will call to schedule. 5. Referrals: Julio Cesar reports an increase in pain since first session of managed care director this past weekend. I advised he monitor how he tolerates the next few days. If he continues to have increase in pain over the next week, I would not recommend additional sessions. He will call to check coverage of acupuncture. 6. Follow up with Marine Morgan APRN CNP in 4-6 weeks. 7. Julio Cesar to follow up with Primary Care provider regarding elevated blood pressure. ? I spent 30 minutes of time face to face with the patient. Greater than 50% of this time was spent in patient counseling and/or coordination of care. ?? Marine Morgan APRN, CNP [facility] N EXPORT COORDINATOR documented in this encounter Plan of Treatment Not on file documented as of this encounter Visit Diagnoses Diagnosis Chronic bilateral low back pain without sciatica documented in this encounter Additional Health Concerns Assessment Noted Time PHQ-9 Depression Total Score: 3 07/21/20 19 7:04 AM OCEAN EXPORT COORDINATOR documented as of this encounter Care Teams Ocean Export Coordinator Relationship Specialty [place] [address] [place] [address] PCP - General Family Practice 03/19/11 [place] [address] [place] [address] Assigned PCP 07/14/16 08/02/22 [place] [address] [place] [address] Assigned PCP 10/12/22 11/15/22 documented as of this encounter
--- OUTSIDE RECORDS SUMMARY | 2023-11-27 10:03 | XMS_ITS | Referral Summary ---
Author Name Unknown Organization [facility] Address [address] [place] [address] Care Team Providers Care Encephalographer Name Role Phone Noy Major MD Primary Care Provider [phone] Allergies Active Allergy Reactions Criticality Noted Date [...] Typhoid, Unspecified Formulation 07/22/2013 Yellow Fever 07/22/2013 Social History Tobacco Use Types Packs/Day Years [...] ST Respiratory Rate 18 10/11/2019 10:25 AM SOUNDING DEVICE OPERATOR Oxygen Saturation 96% 02/29/2020 11:05 AM CDT Inhaled Oxygen Concentration - - Weight 123.8 kg (273 lb) 02/29/2020 11:05 AM CDT Height 185.4 cm (6' 1) 10/11/2019 10:25 AM SOUNDING DEVICE OPERATOR Body Mass Index 36.02 10/11/2019 10:25 AM SOUNDING DEVICE OPERATOR Plan of Treatment Not on file Medical Devices Implanted Type Area Health Education Assistant Device Identifier Shelf Expiration Date Model / Serial / Lot Graft Bone Putty Dbx 01ml [id number] Implanted:Qty : 1 on 03/21/2017 by Mega Curry MD at [facility] Bone/Ti ssue/Bi ologic N/A: Spine Cervical MUSCULOSKELETAL ROSS 10/15/2018 [id number] / [id number] / Archon Plate Implanted:Qty : 1 on 03/21/2017 by Mega Curry MD at [facility] N/A: Spine Cervical [id number] / / [id number] 002 Archon Screw Implanted:Qty : 2 on 03/21/2017 by Mega Curry MD at [facility] N/A: Spine Cervical [id number] / / [id number] 002 Archon Screw Implanted:Qty : 2 on 03/21/2017 by Mega Curry MD at [facility] N/A: Spine Cervical [id number] / / [id number] 002 Cor Sm Acr Implanted:Qty : 1 on 03/21/2017 by Mega Curry MD at [facility] N/A: Spine Cervical [id number] / / [id number] 002 Procedures Procedure Name Priority Date/Time Associated Diagnosis Comments BASIC METABOLIC PANEL STAT 09/20/2019 10:33 AM SOUNDING DEVICE OPERATOR FECAL COLORECTAL CANCER SCREEN FIT Routine 08/27/2019 12:06 PM SOUNDING DEVICE OPERATOR Screen for colon cancer LIPID REFLEX TO [...] Basic metabolic panel (BMP) (09/20/2019 10:33 AM SOUNDING DEVICE OPERATOR) Sodium 139 133 - 144 mmol/L 09/20/2019 12:04 PM SOUNDING DEVICE OPERATOR [facility] Potassium 4.1 3.4 - 5.3 mmol/L 09/20/2019 12:04 PM [facility] Comment:Specimen slightly he molyzed, potassium may be falsely elevated Chloride 106 94 - 109 mmol/L 09/20/2019 12:04 PM [facility] Carbon Dioxide 27 20 - 32 mmol/L 09/20/2019 11:10 AM [facility] Anion Gap 6 3 - 14 mmol/L 09/20/2019 11:10 AM [facility] Glucose 105(H) 70 - 99 mg/dL 09/20/2019 11:10 AM [facility] Urea Nitrogen 10 7 - 30 mg/dL 09/20/2019 11:10 AM [facility] Creatinine 0.79 0.66 - 1.25 mg/dL 09/20/2019 11:10 AM [facility] GFR Estimate >90 >60 mL/min/{1. 73_m2} 09/20/2019 11:10 AM [facility] Comment: Non GFR Calc Starting 08/04/2018, serum creatinine based estimated GFR (eGFR) will be calculated using the Chronic Kidney Disease Epidemiology Collaboration (CKD-EPI) equation. GFR Estimate If Black >90 >60 mL/min/{1. 73_m2} 09/20/2019 11:10 AM [facility] Comment: GFR Calc Starting 08/04/2018, serum creatinine based estimated GFR (eGFR) will be calculated using the Chronic Kidney Disease Epidemiology Collaboration (CKD-EPI) equation. Calcium 9.5 8.5 - 10.1 mg/dL 09/20/2019 11:10 AM [facility] Blood specimen (specimen) 09/20/2019 10:33 AM SOUNDING DEVICE OPERATOR 09/20/2019 10:42 AM SOUNDING DEVICE OPERATOR Rocael Palencia MD LAB - BLOOD ORDER [facility] [place] [address], [facility] [phone] * Fecal colorectal cancer screen FIT - Future (S+30) (08/27/2019 12:06 PM SOUNDING DEVICE OPERATOR) Occult Blood Scn FIT Negative NEG^Negati ve 09/01/2019 7:22 PM SOUNDING DEVICE OPERATOR [facility] Stool specimen (specimen) 08/27/2019 12:06 PM SOUNDING DEVICE OPERATOR 09/01/2019 12:07 PM SOUNDING DEVICE OPERATOR Noy Major MD LAB - STOOLS ORDERAB LES Performing Organization Address City/[facility]/ZIP Co de Phone Number [facility] [address] [place] [address] * (ABNORMAL) Lipid panel reflex to direct LDL Fasting (02/08/2019 10:43 AM CDT) [facility] Cholesterol 162 <200 mg/dL 02/09/2019 11:04 AM CDT [facility] Triglycerides 276(H) <150 mg/dL 02/09/2019 11:04 AM CDT [facility] Comment: Borderline high: ??150-199 mg/dl High: ? 200-499 mg/dl Very high: ? >499 mg/dl Fasting specimen HDL Cholesterol 38(L) >39 mg/dL 9 11:10 AM CDT [facility] LDL Cholesterol Calculated 69 <100 mg/dL 02/09/2019 11:10 AM CDT [facility] Comment:Desirable: <100 mg/d l Non HDL Cholesterol 124 <130 mg/dL 02/09/2019 11:10 AM CDT [facility] Blood specimen (specimen) 02/08/2019 10:43 AM CDT 02/08/2019 10:44 AM CDT Noy Major MD LAB - BLOOD ORDERABL ES Performing Organization Address City/[facility]/ZIP Co de Phone Number [facility] [address] [place] [address] * HIV Antigen Antibody Combo (12/22/2017 8:39 AM CDT) Pathologist [facility] HIV Antigen Antibody Combo Nonreactive NR^Nonrea ctive 12/22/2017 8:13 PM CDT [facility] Comment:HIV-1 p24 Ag & HIV-1 /HIV-2 Ab Not Detected Blood specimen (specimen) 12/22/2017 8:39 AM CDT 12/22/2017 8:40 AM CDT Noy Major MD LAB - BLOOD ORDERABL ES Performing Organization Address City/[facility]/ZIP Co de Phone Number [facility] [address] [place] [address] * Hepatitis C Screen Reflex to HCV RNA Quant and Genotype (11/12/2016 9:37 AM CDT) Hepatitis C Antibody Nonreactive Assay performance characteristics have not been established for newborns, infants, and children NR [facility] Blood specimen (specimen) 11/12/2016 9:37 AM CDT 11/12/2016 9:38 AM CDT Noy Major MD LAB - BLOOD ORDERABL ES Performing Organization Address [facility] Co de Phone Number [facility] [address] [place] [address] from Last 3 Months or Most Recently Relevant to Health Maintenance Advance Directives For more information, please contact: [phone] * Full Code (Latest Code Status on File) Date Activated Date Inactivated Comments 03/22/2017 9:49 AM 09/20/2019 10:11 AM * Full Code Date Activated Date Inactivated Comments 03/21/2017 5:02 PM 03/22/2017 9:49 AM Care Teams Encephalographer Relationship Specialty [place] [address] [place] [address] PCP - General Family Practice 03/19/11
--- OUTSIDE RECORDS SUMMARY | 2023-11-27 10:03 | XMS_ITS | Encounter Summary ---
Author Name Unknown Organization [facility] Address [address] [place] [address] Care Team Providers Care Piggyback Clerk Name Role Phone Noy Major MD Primary Care Provider [phone] Noy Major MD Unavailable Noy Major MD Unavailable Noy Major MD Unavailable Encounter Details Date Type Department Care Team (Late st Contact Info) Description 06/07/2013 [facility] [id number] [place] [phone] [facility] Social History Tobacco Use Types Packs/Day Years [...] on filedocumented in this encounter Care Teams Piggyback Clerk Relationship Specialty Start [place] [id number] [place] [address] [id number] PCP - General Family Practice 03/19/11 [place] [address] [place] [address] PCP - Assigned PCP 07/14/16 10/20/18 [place] [address] [place] [address] Assigned PCP 07/14/16 08/02/22 [place] [address] [place] [address] Assigned PCP 10/12/22 11/15/22 documented as of this encounter
--- OUTSIDE RECORDS SUMMARY | 2023-11-27 10:03 | XMS_ITS | Encounter Summary ---
Author Name Unknown Organization [facility] Address [address] [place] [address] Care Team Providers Care Horticultural Farm Manager Name Role Phone Noy Major MD Primary Care Provider [phone] Noy Major MD Unavailable Noy Major MD Unavailable Noy Major MD Unavailable Encounter Details Date Type Department Care Team (Late st Contact Info) Description 03/27/2016 [facility] [address], [address] [place] [address] Yvonne Rivera, MANAGER PARTY Social History Tobacco Use Types Packs/Day Years [...] on filedocumented in this encounter Care Teams Horticultural Farm Manager Relationship Specialty [place] [address] [place] [address] PCP - General Family Practice 03/19/11 [place] [address] [place] [address] PCP - Assigned PCP 07/14/16 10/20/18 [place] [address] [place] [address] Assigned PCP 07/14/16 08/02/22 [place] [address] [place] [address] Assigned PCP 10/12/22 11/15/22 documented as of this encounter
--- OUTSIDE RECORDS SUMMARY | 2023-11-27 10:03 | XMS_ITS | Encounter Summary ---
Author Name Unknown Organization [facility] Address [address] [place] [address]. [place] [address] Care Team Providers Care Bridge Design Engineer Name Role Phone Noy Major MD Primary Care Provider [phone] Noy Major MD Unavailable Noy Major MD Unavailable Reason for Visit * Reason Onset Date Comments Referral 02/08/2019 New Eval Encounter Details Date Type Department Care Team (Late st Contact Info) Description 02/08/2019 Telephone [facility] [address] [place] [address] Pain Management Program, [facility] Referral (New Eval ) Social History Tobacco Use Types Packs/Day [...] * Telephone Encounter - Dolores Islas - 02/08/2019 10:57 AM CDT Images from the original note were not included. Pain Management Center Referral 1. Confirmed address with patient? Yes 2. Confirmed phone number with patient? Yes 3. Confirmed referring provider? Yes 4. Is the PCP the same as the referring provider? Yes 5. Has the patient been to any previous pain clinics? No (If yes, send [facility] with welcome letter) 6. Which insurance are we to bill for this appointment? [employer] 7. Informed pt of cancellation (48 hour) policy? Yes REGARDING OPIOID MEDICATIONS: We will always address appropriateness of opioid pain medications, but we generally will not automatically take on a prescribing role. When we do take on prescribing of opioids for chronic pain, it is in collaboration with the referring physician for an intermediate period of time (months), with an expectation that the primary physician or provider will assume the prescribing role if medications are effective at stable doses with demonstrated compliance. Therefore,please do not assume that your prescribing responsibilities end on the day of pain clinic consultation. 8. Informed pt of prescribing policy? Yes 9.Please be aware that once you are established with a pain provider and location, you will need tocontinue have all future visits with that provider and location. It is best to determine what location is the most convenient for you and schedule with that one. PATIENT INFORMED OF THIS POLICY Yes 9. Referring Provider: Noy Major Balloon Pilot [facility] documented in this encounter Plan of Treatment Not on file documented as of this encounter Visit Diagnoses Not on filedocumented in this encounter Additional Health Concerns Assessment Noted Time PHQ-9 Depression Total Score: 18 019 7:03 AM CDT documented as of this encounter Care Teams Bridge Design Engineer Relationship Specialty [place] [address] [place] [address] PCP - General Family Practice 03/19/11 [place] [address] [place] [address] Assigned PCP 07/14/16 08/02/22 [place] [address] [place] [address] Assigned PCP 10/12/22 11/15/22 documented as of this encounter
--- OUTSIDE RECORDS SUMMARY | 2023-11-27 10:03 | XMS_ITS | Encounter Summary ---
Author Name Unknown Organization [facility] Address [address] [place] [address]. [place] [address] Care Team Providers Care Occup Therapist Name Role Phone Noy Major MD Primary Care Provider [phone] Noy Major MD Unavailable Noy Major MD Unavailable Noy Major MD Unavailable Encounter Details Date Type Department Care Team (Late st Contact Info) Description 06/13/2017 [facility] Neurological [address] [phone] Mega Curry MD [facility] [address] [place] [address] Social History Tobacco Use Types [...] documented as of this encounter Care Teams Occup Therapist Relationship Specialty [place] [address] [place] [address] PCP - General Family Practice 03/19/11 [place] [address] [place] [address] PCP - Assigned PCP 07/14/16 10/20/18 [place] [address] [place] [address] Assigned PCP 07/14/16 08/02/22 [place] [address] [place] [address] Assigned PCP 10/12/22 11/15/22 documented as of this encounter
--- OUTSIDE RECORDS SUMMARY | 2023-11-27 10:04 | XMS_ITS | Encounter Summary ---
Author Name Unknown Organization [facility] Address [address] [place] [address]. [place] [address] Care Team Providers Care Brand Development Manager Name Role Phone Noy Major MD Primary Care Provider [phone] Noy Major MD Unavailable Noy Major MD Unavailable Noy Major MD Unavailable Reason for Visit * Reason Onset Date Comments Refill Request 05/17/2011 Zanaflex Encounter Details Date Type Department Care Team (Late st Contact Info) Description 05/17/2011 [facility] Medical Advice [address] [phone] Noy Major MD [address] [place] [address] [phone] Refill Request (Zanaflex) Social History Tobacco Use Types Packs/Day Years [...] on filedocumented in this encounter Care Teams Brand Development Manager Relationship Specialty [place] [address] [place] [address] PCP - General Family Practice 03/19/11 [place] [address] [place] [address] PCP - Assigned PCP 07/14/16 10/20/18 [place] [address] [place] [address] Assigned PCP 07/14/16 08/02/22 [place] [address] [place] [address] Assigned PCP 10/12/22 11/15/22 documented as of this encounter
--- OUTSIDE RECORDS SUMMARY | 2023-11-27 10:04 | XMS_ITS | Encounter Summary ---
Author Name Unknown Organization [facility] Address [address] [place] [address]. [place] [address] Care Team Providers Care Shield Operator Name Role Phone Noy Major MD Primary Care Provider [phone] Noy Major MD Unavailable Noy Major MD Unavailable Noy Major MD Unavailable Reason for Visit * Reason Onset Date Comments Refill Request 05/08/2011 zanaflex and nex ium Encounter Details Date Type Department Care Team (Late st Contact Info) Description 05/08/2011 [facility] Medical Advice [address] [phone] Noy Major MD [address] [place] [address] Refill Request (zanaflex and nexium) Social History Tobacco Use Types Packs/Day Years [...] encounter Miscellaneous Notes * Telephone Encounter - Micheal Clara - 05/08/2011 11:52 AM CDT Medication requested: zanaflex and nexium Date of last office visit related to request: 05/01/11 Date last filled: zanaflex-04/15/11 Nexium-listed as historical Labs pertaining to med: none Unable to fill PSO Adelaide Burton RN documented in this encounter Plan of Treatment Not on file documented as of this encounter Visit Diagnoses Diagnosis Back pain Backache, unspecified documented in this encounter Care Teams Shield Operator Relationship Specialty [place] [address] [place] [address] PCP - General Family Practice 03/19/11 [place] [address] [place] [address] PCP - Assigned PCP 07/14/16 10/20/18 [place] [address] [place] [address] Assigned PCP 07/14/16 08/02/22 [place] [address] [place] [address] Assigned PCP 10/12/22 11/15/22 documented as of this encounter
--- OUTSIDE RECORDS SUMMARY | 2023-11-27 10:04 | XMS_ITS | Encounter Summary ---
Author Name Unknown Organization [facility] Address [address] [place] [address]. [place] [address] Care Team Providers Care Paramedic Supervisor Name Role Phone Noy Major MD Primary Care Provider [phone] Noy Major MD Unavailable Noy Major MD Unavailable Noy Major MD Unavailable Reason for Visit * Reason Onset Date Comments MyChart Communication 03/20/2011 back pain Encounter Details Date Type Department Care Team (Latest Contact Info) Description 03/20/2011 [facility] Medical Advice [address] [phone] Noy Major MD [address] [place] [address] MyChart Communication (back pain) Social History Tobacco Use Types Packs/Day Years [...] on filedocumented in this encounter Care Teams Paramedic Supervisor Relationship Specialty [place] [address] [place] [address] PCP - General Family Practice 03/19/11 [place] [address] [place] [address] PCP - Assigned PCP 07/14/16 10/20/18 [place] [address] [place] [address] Assigned PCP 07/14/16 08/02/22 [place] [address] [place] [address] Assigned PCP 10/12/22 11/15/22 documented as of this encounter
--- OUTSIDE RECORDS SUMMARY | 2023-11-27 10:04 | XMS_ITS | Encounter Summary ---
Author Name Unknown Organization [facility] Address [address] [place] [address]. [place] [address] Care Team Providers Care Kindergarten Teacher Name Role Phone Suresh Webster MD Primary Care Provider Unavailable Noy Major MD Primary Care Provider Noy Major MD Unavailable Noy Major MD Unavailable Noy Major MD Unavailable Reason for Visit * Reason Onset Date Comments Hypertension 01/11/2011 Encounter Details Date Type Department Care Team (Late st Contact Info) Description 01/11/2011 [facility] Medical Advice [address] [phone] Noy Major MD [address] [place] [address] Hypertension Social History Tobacco Use Types Packs/Day Years Used Date Smoking Tobacco: Never Alcohol Use Standard Drinks/Week Comments No 0 (1 standard drink = 0.6 oz pure alcohol) Detox hx. Discharged 05/28/2003 Sex and Gender Information Value Date Recorded Sex Assigned at Male 02/10/2019 3:52 PM CDT Gender Identity Male 02/10/2019 3:52 PM CDT Sexual Orientation Straight 02/10/2019 3: 52 PM CDT documented as of this encounter Miscellaneous Notes * Telephone Encounter - Vasile Roque - 01/11/2011 9:11 AM CDT documented in this encounter Plan of Treatment Not on file documented as of this encounter Visit Diagnoses Not on filedocumented in this encounter Care Teams Kindergarten Teacher Relationship Specialty Start Date End Date Suresh Webster MD PCP - General 07/22/03 03/18/11 [place] [address] [place] [address] PCP - General Family Practice 03/19/11 [place] [address] [place] [address] PCP - Assigned PCP 07/14/16 10/20/18 [place] [address] [place] [address] Assigned PCP 07/14/16 08/02/22 [place] [address] [place] [address] Assigned PCP 10/12/22 11/15/22 documented as of this encounter
--- OUTSIDE RECORDS SUMMARY | 2023-11-27 10:04 | XMS_ITS | Encounter Summary ---
Author Name Unknown Organization [facility] Address [address] [place] [address]. [place] [address] Care Team Providers Care Laborer Brush Clearing Name Role Phone Suresh Webster MD Primary Care Provider Unavailable Noy Major MD Primary Care Provider Noy Major MD Unavailable Noy Major MD Unavailable Noy Major MD Unavailable Reason for Visit * Reason Onset Date Comments MyChart Communication 01/11/2011 BP update Encounter Details Date Type Department Care Team (Latest Contact Info) Description 01/11/2011 [facility] Medical Advice [address] [phone] Noy Major MD [address] [place] [address] MyChart Communication (BP update) Social History Tobacco Use Types Packs/Day Years [...] on filedocumented in this encounter Care Teams Laborer Brush Clearing Relationship Specialty Start Date End Date Suresh Webster MD PCP - General 07/22/03 03/18/11 [place] [address] [place] [address] PCP - General Family Practice 03/19/11 [place] [address] [place] [address] PCP - Assigned PCP 07/14/16 10/20/18 [place] [address] [place] [address] Assigned PCP 07/14/16 08/02/22 [place] [address] [place] [address] Assigned PCP 10/12/22 11/15/22 documented as of this encounter
--- OUTSIDE RECORDS SUMMARY | 2023-11-27 10:04 | XMS_ITS | Encounter Summary ---
Author Name Unknown Organization [facility] Address [address] [place] [address] Care Team Providers Care Calender Roll Operator Name Role Phone Noy Major MD Primary Care Provider [phone] Noy Major MD Unavailable Noy Major MD Unavailable Noy Major MD Unavailable Encounter Details Date Type Department Care Team (Late st Contact Info) Description 04/06/2011 [facility] [address] [phone] [facility] Social History Tobacco Use Types Packs/Day Years [...] on filedocumented in this encounter Care Teams Calender Roll Operator Relationship Specialty Start Date End Date Noy [place] [id number] [place] [address] [phone] PCP - General Family Practice 03/19/11 [place] [address] [place] [address] PCP - Assigned PCP 07/14/16 10/20/18 [place] [address] [place] [address] Assigned PCP 07/14/16 08/02/22 [place] [address] [place] [address] Assigned PCP 10/12/22 11/15/22 documented as of this encounter
--- OUTSIDE RECORDS SUMMARY | 2023-11-27 10:04 | XMS_ITS | Encounter Summary ---
Author Name Unknown Organization [facility] Address [address] [place] [address]. [place] [address] Care Team Providers Care Call Taker Name Role Phone Noy Major MD Primary Care Provider Noy Major MD Unavailable Noy Major MD Unavailable Noy Major MD Unavailable Encounter Details Date Type Department Care Team (Late st Contact Info) Description 05/28/2011 [facility] Medical Advice [address] [phone] N[place] [id number] [place] [address] Moderate major depression (H) (Primary Dx) Social History Tobacco Use Types Packs/Day Years [...] encounter Miscellaneous Notes * Telephone Encounter - Clara Burton - 05/29/2011 8:21 AM CDT Patient scored 25 on his PHQ9 today. Please address. Last office visit: 05/01/11 296.22F Moderate major depression Comment: will start on wellbutrin, medications side effects and risks discussed with patient in details, and advised to call if any side effect. Pt agreed to take the medicine. Pt does not have risk for suicide or homocide Plan: DEPRESSION ACTION PLAN (DAP) buPROPion (WELLBUTRIN XL) 300 MG 24 hr tablet Follow up in 1 week. Adelaide Burton RN documented in this encounter Plan of Treatment Not on file documented as of this encounter Visit Diagnoses Diagnosis Moderate major depression (H)- Primary Major depressive disorder, single episode, moderate documented in this encounter Care Teams Call Taker Relationship Specialty [place] [address] [place] [address] PCP - General Family Practice 03/19/11 [place] [address] [place] [address] PCP - Assigned PCP 07/14/16 10/20/18 [place] [address] [place] [address] Assigned PCP 07/14/16 08/02/22 [place] [address] [place] [address] Assigned PCP 10/12/22 11/15/22 documented as of this encounter
--- OUTSIDE RECORDS SUMMARY | 2023-11-27 10:04 | XMS_ITS | Clinical Summary ---
Author Name Unknown Organization [facility] Address [address] [place] [address] Care Team Providers Care Surgical Lead Name Role Phone Chang Sims MD Primary Care Provider Source Comments You are receiving this document as you are listed as the primary care provider,follow-up provider, or the patient has been referred to you for consultation.This is in compliance with the Medicare andMedicaid EHR Incentive Program,which states Providers who transition their patient to another setting of careor provider of care or refers their patient to another provider of care shouldprovide summary care record for each transition of care or referral. [facility] Allergies Active Allergy Reactions Criticality Noted Date Comments Amoxicillin 12/28/2002 rash Medications Medication Sig Dispensed Refills Start Date End Date Status ibuprofen (AKA MOTRIN) 800 MG tablet Take 800 mg by mouth every 6 hours as needed for Pain. Active TRAMADOL HCL Dosage unknown. Active hydrocodone-acetami nophen (HYDROCODONE-APAP) 5-500 MG tabletIndications:H emorrhoids, external,Hemorrhoid s, internal Take 1-2 Tabs by mouth every 6 hours as needed for Pain. 20 Tab 0 12/04/2009 Active Additional Information Patient not taking.Reported on 06/22/2018 LOSARTAN POTASSIUM OR Active OMEPRAZOLE OR Active gabapentin (NEURONTIN) 600 MG tabletIndications:S I (sacroiliac) joint dysfunction (HRC),Lumbosacral spondylosis without myelopathy (HRC),Myalgia Take 1 Tablet by mouth three times a day. 270 Tablet 3 06/22/2018 Active Immunizations Name Administration Dates Next Due Td 12/28/2002 Social History Tobacco Use Types Packs/Day Years Used Date Smoking Tobacco: Never Smokeless Tobacco: Never Alcohol Use Standard Drinks/Week Comments Yes 0 (1 standard drink = 0.6 oz pur e alcohol) Sex and Gender Information Value Date Recorded Sex Assigned at Not on file Gender Identity Not on file Sexual Orientation Not on file Last Filed Vital Signs Vital Sign Reading Time Taken Comments Blood Pressure 137/91 06/22/2018 2:22 PM SUPERVISOR COREMAKER Pulse 98 06/22/2018 2:22 PM SUPERVISOR COREMAKER Temperature 36.7 ??C (98 ??F) 12/28/2002 8:30 PM CDT Respiratory Rate 20 12/04/2009 8:22 AM CDT Oxygen Saturation - - Inhaled Oxygen Concentration - - Weight 126.6 kg (279 lb) 06/22/2018 2:22 PM SUPERVISOR COREMAKER Height 185.4 cm (6' 1) 06/22/2018 2:22 PM SUPERVISOR COREMAKER Body Mass Index 36.81 06/22/2018 2:22 PM SUPERVISOR COREMAKER Plan of Treatment Health Maintenance Due Date Last Done Comments Colon Cancer Screening Plan Due 1961 Hep C Screening (Preventive Services) 1961 PSA Screening Discussion 1961 HIV Screening (Preventive Services) 1977 Adult Preventive Visit 1979 Cholesterol 1996 Zoster/Shingles (1 of 2) 2011 COVID-19 Vaccine ( - 2022-2 4 season) 2023 Influenza (#1) 2023 06/02/2011 DTaP/Tdap/Td (3 - Tdap) 07/22/2023 07/22/20 13, 07/06/2008, 12/28/2002 HepA Aged Out 07/22/2013 No longer eligi ble based on patient's age to complete this topic Pneumococcal Aged Out 08/27/2019 No longer eligi ble based on patient's age to complete this topic HepB Aged Out No longer eligi ble based on patient's age to complete this topic Hib Aged Out No longer eligi ble based on patient's age to complete this topic IPV (Polio) Aged Out No longer eligi ble based on patient's age to complete this topic MCV4 Aged Out No longer eligi ble based on patient's age to complete this topic Care Teams Surgical Lead Relationship Specialty [place] [address] [place] [address] PCP - General 12/07/09
--- OUTSIDE RECORDS SUMMARY | 2023-11-27 10:04 | XMS_ITS | Encounter Summary ---
Author Name Unknown Organization [facility] Address [address] [place] [address] Care Team Providers Care Netting Weaver Name Role Phone Suresh Webster MD Primary Care Provider Unavailable Noy Major MD Primary Care Provider [phone] Noy Major MD Unavailable Noy Major MD Unavailable Noy Major MD Unavailable Reason for Visit * Reason Onset Date Comments Refill Request 10/10/2010 tramadol Encounter Details Date Type Department Care Team (Late st Contact Info) Description 10/10/2010 My[facility] Refill [address] [phone] Suresh Webster MD Refill Request (tramadol) Social History Tobacco Use Types Packs/Day [...] encounter Miscellaneous Notes * Telephone Encounter - Luli Goode - 10/10/2010 2:58 PM CST MEDICATION(S) REQUESTED: Tramadol Last OV: 08/23/10 Reason for visit: chest pain Date last filled: 09/10/10 #100 Not pso, routed, need to fax Luli Goode RN RECOVERY OFFICER documented in this encounter Plan of Treatment Not on file documented as of this encounter Visit Diagnoses Diagnosis Lumbar radiculopathy Thoracic or lumbosacral neuritis or radiculitis, unspecified documented in this encounter Care Teams Netting Weaver Relationship Specialty Start Date End Date Suresh Webster MD PCP - General 07/22/03 03/18/11 [place] [address] [place] [address] PCP - General Family Practice 03/19/11 [place] [address] [place] [address] PCP - Assigned PCP 07/14/16 10/20/18 [place] [address] [place] [address] Assigned PCP 07/14/16 08/02/22 [place] [address] [place] [address] Assigned PCP 10/12/22 11/15/22 documented as of this encounter
--- OUTSIDE RECORDS SUMMARY | 2023-11-27 10:04 | XMS_ITS | Encounter Summary ---
Author Name Unknown Organization [facility] Address [address] [place] [address]. [place] [address] Care Team Providers Care Locator Specialist Name Role Phone Suresh Webster MD Primary Care Provider Unavailable Noy Major MD Primary Care Provider [phone] Noy Major MD Unavailable Noy Major MD Unavailable Noy Major MD Unavailable Encounter Details Date Type Department Care Team (Late st Contact Info) Description 05/26/[address] [address] Pawel Palm MD FAMILY MEDICINE [facility] [address] [place] [address] DIAGNOSIS NOT YET DEFINED (Primary Dx) Social History Tobacco Use Types [...] PM CDT documented as of this encounter Progress Notes * 05/26/2003 11:59 PM [id number] 00:00 History And Physical-[facility] ZAY MATOS) [Entered: 00:00 Tr anscription ([facility])] CHIEF COMPLAINT: Alcohol dependence. HISTORY OF PRESENT ILLNESS: This is the f [facility] admission for Thuan Lopez who is a 42-year-old male. The patient is . He has an 11-year-old son. 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 The patient enters [facility] at this time on his own volition and at the encouragement of his . He admits to a 10-year history of problems with alcohol. He drinks half a liter of vod ka per day and six beers per day. He uses each day. He can't stop drinking, he can't cut down witho ut withdrawal symptoms, he admits to progression, adverse effects, and inability to control. His wif e has been concerned. He hides his use from his . He has had no previous treatment. He is eager to stop. He now enters for that purpose. The patient denies any other drug abuse. PAST MEDICAL HI STORY: 1. Hospitalizations: None. 2. Medical Illnesses: None. 3. The patient has a history of posit man TB skin test 12 years ago. he was not treated but has had no recurrence. 4. He has a history of high blood pressure, possibly related to his drinking. 5. No other major medical problems. MEDICATIO NS: None. ALLERGIES: No known drug allergies. REVIEW OF SYSTEMS: Essentially negative. The patie nt went to [facility] for an evaluation, and inpatient treatment was suggested. He was also sent here fo r detox. He admits to hallucinations when he tries to stop drinking. He admits to tremors. PHYSICA L EXAMINATION: VITAL SIGNS: Temperature 98, pulse 80, respiratory rate 20, blood pressure 150/100. GENERAL: This is a well-developed, well-nourished 42-year-old male in no apparent distress. He is a lert, cooperative, and oriented to time, person, and place. SKIN: Normal. HEAD: Normal. EYES: No rmal. ENT: Negative. NECK: Normal. LUNGS: Clear. HEART: Regular rate and rhythm, no murmurs. ABD OMEN: Soft. No distention, tenderness, or rigidity. Bowel sounds are normal. No masses. No organo megaly. EXTREMITIES: Normal. Good peripheral pulses. No edema. NEUROLOGIC: Grossly normal. ASSES SMENT: Alcohol dependence, alcohol withdrawal. PLAN: 1. Inpatient treatment. 2. Follow blood press ure, may need treatment. ZAY MATOS MD Dictated by: ZAY MATOS MD T : 05/27/2003 12:40 MT: [facility] Document: [id number] LCN: [id number] DSC: [place], [place] Name: MR#: : Admit Date: THUAN LOPEZ [id number] 1960 1 HISTORY AND PHYSICAL Page 2 of 2 Electronically filed by Luciana Merrill 05/31/2003 3:0 1 PM documented in this encounter Plan of Treatment Not on file documented as of this encounter Visit Diagnoses Diagnosis DIAGNOSIS NOT YET DEFINED- Primary documented in this encounter Care Teams Locator Specialist Relationship Specialty Start Date End Date Suresh Webster MD PCP - General 07/22/03 03/18/11 [place] [address] [place] [address] PCP - General Family Practice 03/19/11 [place] [address] [place] [address] PCP - Assigned PCP 07/14/16 10/20/18 [place] [address] [place] [address] Assigned PCP 07/14/16 08/02/22 [place] [address] [place] [address] Assigned PCP 10/12/22 11/15/22 documented as of this encounter
--- OUTSIDE RECORDS SUMMARY | 2023-11-27 10:04 | XMS_ITS | Encounter Summary ---
Author Name Unknown Organization [facility] Address [address] [place] [address]. [place] [address] Care Team Providers Care Fleet Driver Name Role Phone Noy Major MD Primary Care Provider [phone] Noy Major MD Unavailable Noy Major MD Unavailable Noy Major MD Unavailable Encounter Details Date Type Department Care Team (Late st Contact Info) Description 05/20/2011 [facility] Medical Advice [address] [address] [place] [id number] [place] [address] Social History Tobacco Use Types Packs/Day Years [...] on filedocumented in this encounter Care Teams Fleet Driver Relationship Specialty [place] [address] [place] [address] PCP - General Family Practice 03/19/11 [place] [address] [address] [address] PCP - Assigned PCP 07/14/16 10/20/18 [place] [address] [place] [address] Assigned PCP 07/14/16 08/02/22 [place] [address] [address] [address] Assigned PCP 10/12/22 11/15/22 documented as of this encounter
--- OUTSIDE RECORDS SUMMARY | 2023-11-27 10:04 | XMS_ITS | Encounter Summary ---
Author Name Unknown Organization [facility] Address [address] [place] [address]. [place] [address] Care Team Providers Care Poultry Slaughterer Name Role Phone Noy Major MD Primary Care Provider [phone] Noy Major MD Unavailable Noy Major MD Unavailable Noy Major MD Unavailable Reason for Visit * Reason Onset Date Comments Pain 05/20/2011 Pain management Encounter Details Date Type Department Care Team (Late st Contact Info) Description 05/20/2011 [facility] [address] [phone] [place] [id number] [place] [address] [phone] Pain (Pain management) Social History Tobacco Use Types Packs/Day Years [...] on filedocumented in this encounter Care Teams Poultry Slaughterer Relationship Specialty [place] [address] [place] [address] PCP - General Family Practice 03/19/11 [place] [address] [place] [address] PCP - Assigned PCP 07/14/16 10/20/18 [place] [address] [place] [address] Assigned PCP 07/14/16 08/02/22 [place] [address] [place] [address] Assigned PCP 10/12/22 11/15/22 documented as of this encounter
--- NOTE | 2023-11-27 13:00 | CT_ITS ---
Patient: MADDY LOPEZ Facility:?[facility] Patient ID:?[id number] Site Patient ID:?[id number]. Site :?1960 Study:?CT-Abdomen/Pelvis STONE STUDY-11/27/2023 10:45:28 AM Ordering Physician:?DR. JONES Final Report: Indication: Right flank pain, history of stones Technique: Noncontrast CT abdomen and pelvis Please note that all CT scans at this facility use dose modulation, iterative reconstruction, and/or weight-based dosing when appropriate to reduce radiation dose to as low as reasonably achievable. Comparison: Ultrasound 09/25/2023 Findings: Small right renal cyst is present. Multiple left renal cysts are again noted. The largest measures 7.7 cm and is exophytic. No renal stones or hydronephrosis. The ureters and bladder are within normal limits. No perinephric stranding or abscess. Multiple intrahepatic cysts. The gallbladder is normal. Mild atrophy of the pancreas. Atherosclerotic changes, mild. Sigmoid diverticulosis. No diverticulitis. No bowel obstruction, free air, free fluid or adenopathy. Lung bases clear. No fracture. Impression: No solid renal mass or stone. No hydronephrosis. Small right renal cortical cysts and larger left renal cortical cysts. Intrahepatic cysts. No acute findings. Please note that all CT scans at this facility use dose modulation, iterative reconstruction, and/or weight-based dosing when appropriate to reduce radiation dose to as low as reasonably achievable. Dictated by Emiliano Wright MD @ 11/27/2023 1:46:22 PM Signed by:?Emiliano Wright MD @11/27/2023 1:46:22 PM (Electronic Signature)
== END 2023-11-27 10:00 | disposition home or self-care (01) ==
LOC: CT 10:00
PROVIDERS: PCP Physician Assistant Medical; Visit Provider Physician Assistant Medical
DX: R10.9 Unspecified abdominal pain (principal); N28.1 Cyst of kidney, acquired
CPT/HCPCS: 74176

== ENCOUNTER 2023-11-28 09:15 | Outpatient (RCR) | payer OTHER, SELFPAY | END 2024-03-16 12:44 | disposition home or self-care (01) | PROVIDERS: PCP Physician Assistant Medical; Visit Provider Family Medicine | DX: M54.50 Low back pain, unspecified (principal); M54.2 Cervicalgia; Z51.89 Encounter for other specified aftercare; G89.29 Other chronic pain | CPT/HCPCS: 97032; 97110; 97140; 97161 ==

== ENCOUNTER 2024-04-08 13:54 | Outpatient (CLI) | payer OTHER, SELFPAY ==
--- NOTE | 2024-04-08 14:30 | CRLHL7_ITS ---
For Patients: As a result of the Century Cures Act, medical imaging exams and procedure reports are released immediately into your electronic medical record. You may view this report before your referring provider. If you have questions, please contact your health care provider. INDICATION: Neck pain. History of cervical spinal fusion. TECHNIQUE: Sagittal T1 sagittal and axial T2 and sagittal STIR images. COMPARISON: Cervical Spine radiographs dated 03/09/2024. FINDINGS: Postoperative changes of anterior cervical fusion at the C6-7 level. Metallic artifact from anterior plate and fixation screws. No postoperative fluid collections. Lower brainstem the cervical and thoracic spinal cord appear intrinsically normal. No stenosis of the foramen magnum level C1 or C2 levels. At C2-3 no disc herniation central or lateral stenosis. At C3-4 no disc herniation central or lateral stenosis mild right-sided facet arthropathy. At C4-5 small posterior disc bulge to the left of midline without stenosis of the spinal canal. Asymmetric left-sided facet arthropathy. Mild left foraminal narrowing. At C5-6 there is a broad-based right posterolateral disc protrusion on the disc contacts but does not compress the spinal cord there is asymmetric right neural foraminal narrowing with potential impingement of the exiting right C6 nerve root. Mild left foraminal narrowing is also present. At C6-7 mature anterior decompression and fusion. Artifact from metallic hardware. Interbody fusion graft. Spinal canal and neural foramen are widely patent. At C7-T1 no minor posterior disc bulge without stenosis. At T1-2 minor posterior disc bulge without stenosis. IMPRESSION: 1. Mature anterior decompression and fusion at the C6-7 level with wide patency of the spinal canal and neural foramen. 2. At C5-6 shallow broad-based right posterolateral disc protrusion with right foraminal narrowing and potential impingement of the exiting right C6 nerve root. Correlate for potential right C6 radiculopathy. 3. At C4-5 mild to moderate left-sided foraminal narrowing due to prominent facet degeneration and shallow posterolateral disc bulge. 4. Normal appearing cervical spinal cord. Dictated by Rocael Gilliland MD @ 04/09/2024 10:09:31 AM (Electronically Signed)
== END 2024-04-08 13:55 | disposition home or self-care (01) ==
LOC: MRI 13:55
PROVIDERS: PCP Physician Assistant Medical; Visit Provider Physician Assistant Medical
DX: M54.2 Cervicalgia (principal); M50.222 Other cervical disc displacement at C5-C6 level; M50.221 Other cervical disc displacement at C4-C5 level; G89.29 Other chronic pain
CPT/HCPCS: 72141

== ENCOUNTER 2024-04-20 08:45 | Outpatient (RCR) | payer OTHER, SELFPAY | END 2024-07-08 10:07 | disposition home or self-care (01) | PROVIDERS: PCP Physician Assistant Medical; Visit Provider Physician Assistant Medical | DX: M54.2 Cervicalgia (principal); G89.29 Other chronic pain; M54.12 Radiculopathy, cervical region; Z51.89 Encounter for other specified aftercare | CPT/HCPCS: 97110; 97140; 97161 ==

== ENCOUNTER 2024-06-30 07:46 | Outpatient (CLI) | payer OTHER, SELFPAY | END 2024-06-30 07:47 | disposition home or self-care (01) | LOC: RAD 07:47 | PROVIDERS: PCP Physician Assistant Medical; Visit Provider Internal Medicine | DX: R00.2 Palpitations (principal); I35.1 Nonrheumatic aortic (valve) insufficiency; I34.0 Nonrheumatic mitral (valve) insufficiency; I07.1 Rheumatic tricuspid insufficiency | CPT/HCPCS: 93306 ==

== ENCOUNTER 2024-11-01 11:15 | Outpatient (CLI) | payer OTHER, SELFPAY | END 2024-11-01 11:16 | disposition home or self-care (01) | LOC: NFLDREF 11-02 07:38 | PROVIDERS: PCP Physician Assistant Medical; Referring Provider Physician Assistant Medical; Visit Provider Physician Assistant Medical | DX: I10 Essential (primary) hypertension (principal); Z13.220 Encounter for screening for lipoid disorders; Z13.29 Encounter for screening for other suspected endocrine disorder; Z12.5 Encounter for screening for malignant neoplasm of prostate | CPT/HCPCS: 80053; 80061; 84443; G0103 ==

== ENCOUNTER 2024-11-26 09:00 | Outpatient (RCR) | payer OTHER, SELFPAY | END 2025-02-21 11:53 | disposition home or self-care (01) | PROVIDERS: PCP Physician Assistant Medical; Visit Provider Family Medicine | DX: M54.42 Lumbago with sciatica, left side (principal); G89.29 Other chronic pain; Z51.89 Encounter for other specified aftercare | CPT/HCPCS: 36415; 70450; 71046; 80048; 83880; 84484; 85025; 93005; 97110; 97140; 97161; 99284 ==

== ENCOUNTER 2024-11-26 10:22 | Emergency (ER) | payer OTHER, SELFPAY ==
[2024-11-26 10:25] VITALS: BP 183/104; PULSE 53; RESP 18; TEMP 36.5; O2SAT 98; BMI 36.3
--- NOTE | 2024-11-26 10:35 | ED_ITS ---
HPI - General Adult General Time Seen by Provider: 10:35 Date Seen: 11/26/24 Chief complaint: Hypertension Stated complaint: blood pressure check sen by primary Time Seen by Provider: 11/26/24 10:26 Source: patient, RN notes reviewed and old records reviewed Mode of arrival: ambulatory Limitations: no limitations History of Present Illness HPI narrative: This 64-year-old male is coming into the ER upon referral from physical therapy. He went to do with back physical therapy and his blood pressure was elevated. His blood pressure was 180/109 today. He notes recently if he attempts to do any exertion or physical activity, he can feel his blood pressure is high as he will feel a pressure sensation into his neck. He does note that he has been having headaches without visual change. He has noticed that his baseline ringing in his ears is worse. No chest pain at this time. No shortness of breath, no edema. He states his blood pressure had been controlled until recently. On 11/08/2024 he did get started on Celebrex. It is helping his knee pain but there is potentially direct correlation with escalating blood pressures. He was in for a physical on November 01 and his blood pressure was 158/92. Most recent pressures prior to his physical have been systolic of 150s. He had historically been on amlodipine but did not tolerate it due to side effects. He has been on lisinopril 20 mg daily for years. His metoprolol was initiated at his physical at 50 mg daily but then increase to twice a day. He has also had hydralazine 10 mg twice a day initiated. He has an echo from 06/30/2024 done for palpitations. He had normal left ventricular size, mildly increased wall thickness, normal global systolic function, calculated EF of 57%. Right ventricular cavity size is normal, global systolic RV function is normal. The aortic valve is trileaflet, no stenosis and mild regurgitation. The mitral valve is normal, no mitral regurgitation. Normal estimated pulmonary pressures by tricuspid regurgitation velocity and right atrial pressure. The inferior vena cava is normal size, respiratory size variation greater than 50%. The aortic sinus is dilated with a maximum diameter of 4.7 cm. Related Data Previous Rx's ?Medication ?Instructions ?Recorded tizanidine 4 mg tablet 4 mg PO Q8H PRN for neck pain #90 09/09/24 tabs baclofen 10 mg tablet 10 mg PO 3XD 90 days #270 tabs 11/01/24 lisinopril 20 mg tablet 20 mg PO DAILY #90 tabs 11/01/24 pregabalin 75 mg capsule 75 mg PO TID #90 caps 11/01/24 celecoxib 200 mg capsule (Celebrex) 200 mg PO QDAY #20 caps 11/08/24 tramadol 50 mg tablet 50 mg PO TID PRN pain 7 days #21 11/22/24 tabs hydralazine 10 mg tablet 10 mg PO BID #60 tabs 11/23/24 metoprolol succinate 50 mg 50 mg PO BID #60 tabs 11/23/24 tablet,extended release 24 hr Allergies Allergy/AdvReac Type Severity Reaction Status Date / Time No Known Drug Allergies Allergy Verified 11/11/24 09:03 Review of Systems Status of ROS: Reports: 6 or more systems reviewed and unremarkable except as noted in History and below [facility] Intermittent palpitations ?R00.2 - Palpitations (ICD-10) History of kidney stones ?Z87.442 - Personal history of urinary calculi (ICD-10) Surgical History History of cervical spinal surgery (05/17/24) ?Z98.890 - Other specified postprocedural states (ICD-10) History of hemorrhoidectomy ?Z98.890 - Other specified postprocedural states (ICD-10) History of cervical spinal surgery (~2018) ?Z98.890 - Other specified postprocedural states (ICD-10) Social History Narrative: Alcohol ingestion, 1-4 drinks/week Does not use illicit drugs Nonsmoker Smoking Status: Never smoker How often do you have a drink containing alcohol: 2-4 times a month AUDIT-C Alcohol total score: 2 Non-prescribed substance use: denies use Exam Const: Vital Signs, click to edit/add: Vital Signs - 24 hr 11/26/24 10:25 11/26/24 11:20 Temperature 97.7 F Pulse Rate [Pulse Oximeter] 53 L 56 L Respiratory Rate 18 18 Blood Pressure [Ri ght Upper Arm] 183/104 H 172/98 H Pulse Oximetry 98 Oxygen Delivery Me thod Room Air This 64-year-old male is ambulatory into the ED of his own accord. He is alert, interactive, no apparent distress. Neuro is grossly normal in arms and legs. He has symmetrical facial function, pupils equal round, sclera clear, conjugate gaze. Speech is normal. Neck supple, no no JV distension, no adenopathy, no thyromegaly masses or nodules. Lungs are clear, good air entry, no wheezing or crackles, no tachypnea, no accessory muscle use. CV regular rate and rhythm, no murmur, normal S1-S2, no S3-S4. No edema noted. Documenting provider has reviewed patient's vital signs: yes Course Course ED Course: Patient is reportedly having escalation of his blood pressure, do wonder if Celebrex is playing into this. He is experiencing some sense of pressure discomfort into his neck that may correspond elevated blood pressures. Need to look at an EKG, troponin, will do head CT as well. Blood pressure is elevated here but if Celebrex is contributing, potentially just stopping the offending agent may help correct his blood pressure issue. Need to ensure no hypertensive urgency. His blood pressure was notably not controlled when he was in for his physical in looking at most recent values of his systolic pressure recently, would agree that he does have mildly uncontrolled hypertension prior to the initiation of the Celebrex. With his pulse being in the 50s, his metoprolol seems to be at maximal dosing. Lisinopril could be escalated, hydralazine could be escalated in dosing. Reevaluation(s) Time of Reevaluation #1: 12:13 Reevaluation #1: Have reviewed with patient his imaging and labs are all reassuring. We will provide him some time off work through the weekend as he is feeling symptomatic at work. We will have him stop the Celebrex. We have discussed the difficulty in managing blood pressure if it starts to improve as he comes off the Celebrex. Will have him increase his hydralazine to 4 times a day, try to space out evenly during awake time. He has a blood pressure monitor at home, as his blood pressure improves, may need to back off the hydralazine. Do want him rechecked in clinic on Friday or Friday next week, he should schedule with his primary. Vital Signs Vital signs: Initial Vital Signs Temperature 97.7 F 11/26/24 10:25 Temperature Source Temporal Artery Scan 11/26/24 10:25 Pulse Rate 53 L 11/26/24 10:25 Respiratory Rate 18 11/26/24 10:25 Blood Pressure 183/104 H 11/26/24 10:25 Blood Pressure Mean 130 H 11/26/24 10:25 Blood Pressure Position Sitting 11/26/24 10:25 Pulse Oximetry 98 11/26/24 10:25 Oxygen Delivery Method Room Air 11/26/24 10:25 Vital Signs Temperature 97.7 F 11/26/24 10:25 Pulse Rate 53 L 11/26/24 10:25 Respiratory Rate 18 11/26/24 10:25 Blood Pressure 183/104 H 11/26/24 10:25 Pulse Oximetry 98 11/26/24 10:25 Oxygen Delivery Method Room Air 11/26/24 10:25 Temperature 97.7 F 11/26/24 10:25 Pulse Rate 56 L 11/26/24 11:20 Respiratory Rate 18 11/26/24 11:20 Blood Pressure 172/98 H 11/26/24 11:20 Pulse Oximetry 98 11/26/24 10:25 Oxygen Delivery Method Room Air 11/26/24 10:25 Medical Decision Making Lab Data Lab results reviewed: Yes I reviewed the patient's lab results Labs: Lab Results 11/26/24 Range/Units 11:01 WBC 4.70 (4.50-11.00) K/uL RBC 4.75 (4.30-5.90) m/uL Hgb 14.3 (13.5-17.5) gm/dL Hct 43.0 (37.0-53.0) % MCV 91 (80-100) fL MCH 30 (26-34) pg MCHC 33 (32-36) gm/dL RDW Coeff of Harjeet 13.0 (11.5-15.5) % Plt Count 193 (140-440) K/uL Neut % (Auto) 65.2 (42.0-72.0) % Lymph % (Auto) 18.7 L (20-44) % [place] % (Auto) 14.0 H (0.0-11.0) % Eos % (Auto) 0.6 (0.0-7.0) % Baso % (Auto) 0.6 (0.0-3.0) % Neut # (Auto) 3.06 (1.7-7.0) K/uL Lymph # (Auto) 0.90 (0.90-2.90) K/uL [place] # (Auto) 0.70 (0.00-0.90) K/UL Eos # (Auto) 0.03 (0.00-0.50) K/uL Baso # (Auto) 0.03 (0.00-0.30) K/uL Abs Immat Gran (auto) 0.04 (0.00-0.30) K/uL Imm/Tot Granulo (auto) 0.9 % Sodium 143 (135-149) mmol/L Potassium 4.5 (3.6-5.1) mmol/L Chloride 105 (96-114) mmol/L Carbon Dioxide 26 (20-32) mmol/L Anion Gap 12 (7-15) mEq/L BUN 18 (7-30) mg/dL Creatinine 0.8 (0.5-1.5) mg/dL Estimated Creat Clear 85.45 Estimated GFR 99 ml/min Glucose 101 (60-115) mg/dL Calcium 9.9 (8.4-10.6) mg/dL NT-Pro-B Natriuret Pep 88 pg/mL POC Troponin I 0.00 L (0.01-0.04) ng/ml Imaging Data CT scan - head: Attestation: I have reviewed the pertinent imaging results. My impression: Did visualize his head CT in do not appreciate any acute pathology, wait radiology over read. Radiologist's impression: Patient: MADDY LOPEZ Facility:?[facility] RIS Patient ID:?[id number] Site Patient ID:?[id number]. Site :?1960 Study:?CT-Head WITHOUT-11/26/2024 11:14:58 AM Ordering Physician:Josué Barnard Final Report: INDICATION: Hypertension and headache TECHNIQUE: CT head without contrast. COMPARISON: None. FINDINGS: CSF spaces: Within normal limits for age. Brain parenchyma: The villatoro-white differentiation is normal. No sign of mass, hemorrhage, or midline shift. Skull base and calvarium: Trace mucosal thickening paranasal sinuses. The visualized orbits are grossly unremarkable. No skull fractures. IMPRESSION: Unremarkable noncontrast head CT. Please note that all CT scans at this facility use dose modulation, iterative reconstruction, and/or weight-based dosing when appropriate to reduce radiation dose to as low as reasonably achievable. Dictated by Km Salazar MD @ 11/26/2024 11:37:17 AM (Electronic Signature) Chest x-ray: Attestation: I have reviewed the pertinent imaging results. My impression: I do not appreciate any acute cardiopulmonary abnormality on my preliminary review. Radiologist's impression: Patient: MADDY LOPEZ Facility:?[facility] Patient ID:?[id number] Site Patient ID:?[id number]. Site :?1960 Study:?XRay-Chest 2V-11/26/2024 11:23:51 AM Ordering Physician:Josué Barnard Final Report: Indication: Hypertension Technique: PA and lateral views of the chest. Comparison: None. Findings: Low lung volumes. Mildly enlarged cardiomediastinal silhouette. No focal consolidation, pleural effusions, or visualized pneumothorax. Partial visualization of postsurgical changes from cervical spinal fusion. Impression: No acute cardiopulmonary disease. Dictated by Jules Brown MD @ 11/26/2024 11:41:57 AM (Electronic Signature) ECG Data Attestation: I personally reviewed and interpreted this ECG as follows: (Sinus bradycardia, 57 beats per minute. Voltage criteria for LVH. Poor R-wave progression anterior precordial leads. Isolated flipped Ts in lead 3, V1 and V3, no ST segment changes noted.) Prior ECG tracings: available for review Discharge Plan Discharge Clinical Impression: Hypertension Qualifiers: Hypertension type: primary hypertension Qualified Code(s): I10 - Essential (primary) hypertension Patient Disposition: Home, Self-Care Condition: Stable Instructions: Low-Sodium Diet (ED), Hypertension (ED) Additional Instructions: Stop Celebrex as I do think this may be contributing to your escalation of your blood pressure. Stay on the lisinopril and metoprolol at current dosing. Will recommend increasing the hydralazine to 4 times a day, attempt to space out evenly during awake hours. If your blood pressure is improving off the Celebrex, the hydralazine may need to be titrated down if your blood pressure is becoming too low. Please schedule follow-up with your primary in clinic on Friday or Friday of this next week for recheck. Light activity until your blood pressure is improving. Activity Level: No strenuous activity Discharge Diet: Heart Healthy (2 gm sodium, low fat) Prescriptions: No Action pregabalin 75 mg capsule 75 mg PO TID Qty: 90 0RF baclofen 10 mg tablet 10 mg PO 3XD 90 Days Qty: 270 3RF lisinopril 20 mg tablet 20 mg PO DAILY Qty: 90 3RF celecoxib [Celebrex] 200 mg capsule 200 mg PO QDAY Qty: 20 0RF tizanidine 4 mg tablet 4 mg PO Q8H PRN (Reason: for neck pain) Qty: 90 3RF tramadol 50 mg tablet 50 mg PO TID PRN (Reason: pain) 7 Days Qty: 21 3RF metoprolol succinate 50 mg tablet extended release 24 hr 50 mg PO BID Qty: 60 0RF hydralazine 10 mg tablet 10 mg PO BID Qty: 60 0RF Follow Up/Referrals: Maya Palma PAKhanhC [Primary Care Provider] - Stand Alone Forms: [facility]/School [facility], [facility] Info Instructions
--- NOTE | 2024-11-26 10:50 | CRLHL7_ITS ---
For Patients: As a result of the Century Cures Act, medical imaging exams and procedure reports are released immediately into your electronic medical record. You may view this report before your referring provider. If you have questions, please contact your health care provider. INDICATION: Hypertension and headache TECHNIQUE: CT head without contrast. COMPARISON: None. FINDINGS: CSF spaces: Within normal limits for age. Brain parenchyma: The villatoro-white differentiation is normal. No sign of mass, hemorrhage, or midline shift. Skull base and calvarium: Trace mucosal thickening paranasal sinuses. The visualized orbits are grossly unremarkable. No skull fractures. IMPRESSION: Unremarkable noncontrast head CT. Please note that all CT scans at this facility use dose modulation, iterative reconstruction, and/or weight-based dosing when appropriate to reduce radiation dose to as low as reasonably achievable. Dictated by Km Salazar MD @ 11/26/2024 11:37:17 AM (Electronically Signed)
--- NOTE | 2024-11-26 10:51 | CRLHL7_ITS ---
For Patients: As a result of the Century Cures Act, medical imaging exams and procedure reports are released immediately into your electronic medical record. You may view this report before your referring provider. If you have questions, please contact your health care provider. Indication: Hypertension Technique: PA and lateral views of the chest. Comparison: None. Findings: Low lung volumes. Mildly enlarged cardiomediastinal silhouette. No focal consolidation, pleural effusions, or visualized pneumothorax. Partial visualization of postsurgical changes from cervical spinal fusion. Impression: No acute cardiopulmonary disease. Dictated by Jules Brown MD @ 11/26/2024 11:41:57 AM (Electronically Signed)
--- OUTSIDE RECORDS SUMMARY | 2024-11-26 11:00 | XMS_ITS | Clinical Summary ---
Author Organization [facility] Address [address] [place] [address] Care Team Providers Care Hand Etcher Helper Name Role Phone Chang Sims MD Primary [...] for each transition of care or referral. [facility] Allergies Active Allergy Reactions Criticality Noted Date Comments Amoxicillin 12/28/2002 rash Medications ibuprofen (AKA MOTRIN) 800 MG tablet Take 800 mg by mouth every 6 hours as needed for Pain. Active TRAMADOL HCL Dosage unknown. A ctive hydrocodone-acet aminophen (HYDROCODONE-APA P) 5-500 MG tabletIndication s:Hemorrhoids, external,Hemorrh oids, internal Take 1-2 Tabs by mouth every 6 hours as needed for Pain. 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 270 Tablet 3 8 Active Immunizations Immunization Administration Dates Next Due Td 12/28/2002 Social History Tobacco Use Types Packs/Day Years Used Date Smoking Tobacco: Never Smokeless Tobacco: Never Alcohol Use Standard Drinks/Week Comments Yes 0 (1 standard drink = 0.6 oz pur e alcohol) Sex and Gender Information Value Date Recorded Sex Assigned at Not on file Legal Sex Male 4:07 AM CDT Gender Identity Not on file Sexual Orientation Not on file Last Filed Vital Signs Vital Sign Reading Time Taken Comments Blood Pressure 137/91 06/22/2018 2:22 PM CASING TIER Pulse 98 06/22/2018 2:22 PM CASING TIER Temperature 36.7 C (98 F) 12/28/2002 8:30 PM CDT Respiratory Rate 20 12/04/2009 8:22 AM CDT Oxygen Saturation - - Inhaled Oxygen Concentration - - Weight 126.6 kg (279 lb) 06/22/2018 2:22 PM CASING TIER Height 185.4 cm (6' 1) 06/22/2018 2:22 PM CASING TIER Body Mass Index 36.81 06/22/2018 2:22 PM CASING TIER Plan of Treatment Health Maintenance Due Date Last Done Comments Colon Cancer Screening Plan Due 1960 Hep C Screening (Preventive Services) 1960 PSA Screening Discussion 1960 HIV Screening (Preventive Services) 1977 Adult Preventive Visit 1979 Cholesterol 1996 Zoster/Shingles (1 of 2) 2011 Pneumococcal 50+ Yrs (2 of 2 - PCV) 08/27/2020 08/27/2019 DTaP/Tdap/Td (3 - Tdap) 07/22/2023 07/22/20 13, 07/06/2008, 12/28/2002 COVID-19 Vaccine (2023-2 5 season) 2024 Influenza (#1) 2024 06/02/2011 RSV (1 - 1-dose 75+ series) 2036 HepA Aged Out 07/22/2013 No longer eligi [...] on patient's age to complete this topic Meningococcal B Aged Out No longer el igible based on patient's age to complete this topic Insurance [employer] Care Teams Hand Etcher Helper Relationship Specialty [place] [address] [place] [address] PCP - General 12/07/09
--- OUTSIDE RECORDS SUMMARY | 2024-11-26 11:01 | XMS_ITS | Encounter Summary ---
Author Organization [facility] Address [address] [place] [address]. [place] [address] Care Team Providers Care Agent Telegrapher Name Role Phone Noy Major MD Primary Care Provider [phone] Noy Major MD Unavailable Noy Major MD Unavailable Noy Maojr MD Unavailable Encounter Details Date Type Department Care Team (Late st Contact Info) Description 09/22/2014 [facility] Medical Advice [address] [phone] Yuridia Morales, SPECIAL FORCES SPECIALIST Social History Tobacco Use Types Packs/Day Years Used Date Smoking Tobacco: Never Smokeless Tobacco: Never Alcohol Use Standard Drinks/Week Comments No 0 (1 standard drink = 0.6 oz pure alcohol) Detox hx. 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 Gender Identity Male 02/10/2019 3:52 PM CDT Sexual Orientation Straight 02/10/2019 3: 52 PM CDT documented as of this encounter Plan of Treatment Not on file documented as of this encounter Visit Diagnoses Not on filedocumented in this encounter Care Teams Agent Telegrapher Relationship Specialty Start [place] [id number] [place] [address] PCP - General Family Practice 03/19/11 [place] [address] [place] [address] PCP - Assigned PCP 07/14/16 10/20/18 [place] [address] [place] [address] Assigned PCP 07/14/16 08/02/22 [place] [address] [place] [address] Assigned PCP 10/12/22 11/15/22 documented as of this encounter
--- OUTSIDE RECORDS SUMMARY | 2024-11-26 11:01 | XMS_ITS | Encounter Summary ---
Author Organization [facility] Address [address] [place] [address]. [place] [address] Care Team Providers Care Literacy Tutor Name Role Phone Noy Major MD Primary Care Provider [phone] Noy Major MD Unavailable Noy Major MD Unavailable Noy Major MD Unavailable Encounter Details Date Type Department Care Team (Late st Contact Info) Description 11/20/2017 [facility] Medical Advice [address] [phone] Tri De Jesus, MANAGER Social History Tobacco Use Types Packs/Day Years Used Date Smoking Tobacco: Never Smokeless Tobacco: Never Alcohol Use Standard Drinks/Week Comments Yes 0 (1 standard drink = 0.6 oz pur e alcohol) socially Sex and Gender Information Value Date Recorded Sex Assigned at Male 02/10/2019 3:52 PM CDT Legal Sex Male 3:14 AM 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 DIRECTOR Gender Identity Male 02/10/2019 3:52 PM CDT Sexual Orientation Straight 02/10/2019 3: 52 PM CDT documented as of this encounter Plan of Treatment Not on file documented as of this encounter Visit Diagnoses Not on filedocumented in this encounter Additional Health Concerns Assessment Noted Time PHQ-9 Depression Total Score: 7 05/06/20 17 11:30 AM CDT documented as of this encounter Care Teams Literacy Tutor Relationship Specialty [place] [address] [place] [address] PCP - General Family Practice 03/19/11 [place] [address] [place] [address] PCP - Assigned PCP 07/14/16 10/20/18 [place] [address] [place] [address] Assigned PCP 07/14/16 08/02/22 [place] [address] [place] [address] Assigned PCP 10/12/22 11/15/22 documented as of this encounter
--- OUTSIDE RECORDS SUMMARY | 2024-11-26 11:01 | XMS_ITS | Encounter Summary ---
Author Organization [facility] Address [address] [place] [address]. [place] [address] Care Team Providers Care Outside Food Server Name Role Phone Noy Major MD Primary Care Provider [phone] Noy Major MD Unavailable Noy Major MD Unavailable Noy Major MD Unavailable Encounter Details Date Type Department Care Team (Late st Contact Info) Description 11/05/2017 [facility] Medical Advice [address] [phone] Vasile Mendieta, RN Social History Tobacco Use Types Packs/Day Years Used Date Smoking Tobacco: Never Smokeless Tobacco: Never Alcohol Use Standard Drinks/Week Comments Yes 0 (1 standard drink = 0.6 oz pur e alcohol) socially Sex and Gender Information Value Date Recorded Sex Assigned at Male 02/10/2019 3:52 PM CDT Legal Sex 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 Gender Identity Male 02/10/2019 3:52 PM CDT Sexual Orientation Straight 02/10/2019 3: 52 PM CDT documented as of this encounter Plan of Treatment Not on file documented as of this encounter Visit Diagnoses Not on filedocumented in this encounter Additional Health Concerns Assessment Noted Time PHQ-9 Depression Total Score: 7 05/06/20 17 11:30 AM CDT documented as of this encounter Care Teams Outside Food Server Relationship Specialty [place] [address] [place] [address] PCP - General Family Practice 03/19/11 [place] [address] [place] [address] PCP - Assigned PCP 07/14/16 10/20/18 [place] [address] [place] [address] Assigned PCP 07/14/16 08/02/22 [place] [address] [place] [address] Assigned PCP 10/12/22 11/15/22 documented as of this encounter
--- OUTSIDE RECORDS SUMMARY | 2024-11-26 11:01 | XMS_ITS | Encounter Summary ---
Author Organization [facility] Address [address] [place] [address]. [place] [address] Care Team Providers Care Oleomargarine Maker Name Role Phone Noy Major MD Primary Care Provider [phone] Noy Major MD Unavailable Noy Major MD Unavailable Noy Major MD Unavailable Reason for Visit * Reason Comments Medication Refill ibuprofen (ADVIL/MOT RIN) 800 MG tablet Encounter Details Date Type Department Care Team (Late st Contact Info) Description 09/14/[address] [phone] Noy Major MD [address] [place] [phone] Medication Refill ( ibuprofen (ADVIL/MOTRIN) 800 MG [...] PM CDT Legal Sex Male 3:14 AM TEST CARRIER Gender Identity Male 02/10/2019 3:52 PM CDT Sexual Orientation Straight 02/10/2019 3: 52 PM CDT documented as of this encounter Miscellaneous Notes * Telephone Encounter - Vasile eMndieta RN - 09/16/2018 12:22 PM CST Routing refill request to provider for review/approval because: Labs not current Vasile Mendieta RN CARRIER * Telephone Encounter - Nakita Mosley - [...] prescribing provider: Dr Major Future Office Visit: CARRIER documented in this encounter Plan of Treatment Not on file documented as of this encounter Visit Diagnoses Diagnosis Bilateral low back pain without sciatica, unspecified chronicity documented in this encounter Additional Health Concerns Assessment Noted Time PHQ-9 Depression Total Score: 0 12/24/19 18 7:39 AM CDT documented as of this encounter Care Teams Oleomargarine Maker Relationship Specialty [place] [address] [place] [address] PCP - General Family Practice 03/19/11 [place] [address] [place] [address] PCP - Assigned PCP 07/14/16 10/20/18 [place] [address] [place] [address] Assigned PCP 07/14/16 08/02/22 [place] [address] [place] [address] Assigned PCP 10/12/22 11/15/22 documented as of this encounter
--- OUTSIDE RECORDS SUMMARY | 2024-11-26 11:01 | XMS_ITS | Encounter Summary ---
Author Organization [facility] Address [address] [place] [address]. [place] [address] Care Team Providers Care School Traffic Guard Name Role Phone Noy Major MD Primary Care Provider [phone] Noy Major MD Unavailable Noy Major MD Unavailable Noy Major MD Unavailable Reason for Visit * Reason Onset Date Comments Refill Request 05/17/2011 Zanaflex Encounter Details Date Type Department Care Team (Late st Contact Info) Description 05/17/2011 [facility] Medical Advice [address] [phone] Noy Major MD [address] [place] [phone] Refill Request (Zanaflex) Social History Tobacco Use Types Packs/Day Years Used Date Smoking Tobacco: Never Smokeless Tobacco: Never Alcohol Use Standard Drinks/Week Comments No 0 (1 standard drink = 0.6 oz pure alcohol) Detox hx. 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 Gender Identity Male 02/10/2019 3:52 PM CDT Sexual Orientation Straight 02/10/2019 3: 52 PM CDT documented as of this encounter Plan of Treatment Not on file documented as of this encounter Visit Diagnoses Not on filedocumented in this encounter Care Teams School Traffic Guard Relationship Specialty [place] [address] [place] [address] PCP - General Family Practice 03/19/11 [place] [address] [place] [address] PCP - Assigned PCP 07/14/16 10/20/18 [place] [address] [place] [address] Assigned PCP 07/14/16 08/02/22 [place] [address] [place] [address] Assigned PCP 10/12/22 11/15/22 documented as of this encounter
--- OUTSIDE RECORDS SUMMARY | 2024-11-26 11:01 | XMS_ITS | Encounter Summary ---
Author Organization [facility] Address [address] [place] [address]. 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 SendGrid 7. Informed pt of cancellation (48 hour) [...] POLICY Yes 9. Referring Provider: Noy Major Life Skills Instructor [facility] documented in this encounter Plan of Treatment Not on file documented as of this encounter Visit Diagnoses Not on filedocumented in this encounter Additional Health Concerns Assessment Noted Time PHQ-9 Depression Total Score: 18 019 7:03 AM CDT documented as of this encounter Care Teams Development Engineer Relationship Specialty [place] [address] [place] [address] PCP - General Family Practice 03/19/11 [place] [address] [place] [address] Assigned PCP 07/14/16 08/02/22 [place] [address] [place] [address] Assigned PCP 10/12/22 11/15/22 documented as of this encounter
--- OUTSIDE RECORDS SUMMARY | 2024-11-26 11:01 | XMS_ITS | Encounter Summary ---
Author Organization [facility] Address [address] [place] [address]. [place] [address] Care Team Providers Care Derrick Follower Name Role Phone Noy Major MD Primary Care Provider [phone] Noy Major MD Unavailable Noy Major MD Unavailable Noy Major MD Unavailable Reason for Visit * Reason Onset Date Comments Refill Request 05/08/2011 zanaflex and nex ium Encounter Details Date Type Department Care Team (Late st Contact Info) Description 05/08/2011 [facility] Medical Advice [address] [phone] Noy Major MD [address] [place] [id number] Refill Request (zanaflex and nexium) Social History Tobacco Use Types Packs/Day Years Used Date Smoking Tobacco: Never Smokeless Tobacco: Never Alcohol Use Standard Drinks/Week Comments No 0 (1 standard drink = 0.6 oz pure alcohol) Detox hx. 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 DIETITIAN Gender Identity Male 02/10/2019 3:52 PM CDT Sexual Orientation Straight 02/10/2019 3: 52 PM CDT documented as of this encounter Miscellaneous Notes * Telephone Encounter - Clara Burton - 05/08/2011 11:52 AM CDT Medication requested: [...] unspecified documented in this encounter Care Teams Derrick Follower Relationship Specialty [place] [address] [place] [address] PCP - General Family Practice 03/19/11 [place] [address] [place] [address] PCP - Assigned PCP 07/14/16 10/20/18 [place] [address] [place] [address] Assigned PCP 07/14/16 08/02/22 [place] [address] [place] [address] Assigned PCP 10/12/22 11/15/22 documented as of this encounter
--- OUTSIDE RECORDS SUMMARY | 2024-11-26 11:01 | XMS_ITS | Encounter Summary ---
Author Organization [facility] Address [address] [place] [address]. [place] [address] Care Team Providers Care Speech Therapy Assistant Name Role Phone Noy Major MD Primary Care Provider [phone] Noy Major MD Unavailable Noy Major MD Unavailable Noy Major MD Unavailable Encounter Details Date Type Department Care Team (Late st Contact Info) Description 06/07/[address] [phone] [facility] Social History Tobacco Use Types Packs/Day Years Used Date Smoking Tobacco: Never Smokeless Tobacco: Never Alcohol Use Standard Drinks/Week Comments Yes 0 (1 standard drink = 0.6 oz pure alcohol) Detox hx. 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 Gender Identity Male 02/10/2019 3:52 PM CDT Sexual Orientation Straight 02/10/2019 3: 52 PM CDT documented as of this encounter Plan of Treatment Not on file documented as of this encounter Visit Diagnoses Not on filedocumented in this encounter Care Teams Speech Therapy Assistant Relationship Specialty Start Date End Date Noy [place] [id number] [place] [address] PCP - General Family Practice 03/19/11 [place] [address] [place] [address] PCP - Assigned PCP 07/14/16 10/20/18 [place] [address] [place] [address] Assigned PCP 07/14/16 08/02/22 [place] [address] [place] [address] Assigned PCP 10/12/22 11/15/22 documented as of this encounter
--- OUTSIDE RECORDS SUMMARY | 2024-11-26 11:01 | XMS_ITS | Encounter Summary ---
Author Organization [facility] Address [address] [place] [address]. [place] [address] Care Team Providers Care Dna Analyst Name Role Phone Noy Major MD Primary Care Provider [phone] Noy Major MD Unavailable Noy Major MD Unavailable Noy Major MD Unavailable Encounter Details Date Type Department Care Team (Late st Contact Info) Description 05/20/2011 [facility] Medical Advice [address] [phone] [place] [id number] [place] [address] Social History Tobacco Use Types Packs/Day Years Used Date Smoking Tobacco: Never Smokeless Tobacco: Never Alcohol Use Standard Drinks/Week Comments No 0 (1 standard drink = 0.6 oz pure alcohol) Detox hx. 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 Gender Identity Male 02/10/2019 3:52 PM CDT Sexual Orientation Straight 02/10/2019 3: 52 PM CDT documented as of this encounter Plan of Treatment Not on file documented as of this encounter Visit Diagnoses Not on filedocumented in this encounter Care Teams Dna Analyst Relationship Specialty [place] [address] [place] [address] PCP - General Family Practice 03/19/11 [place] [address] [place] [address] PCP - Assigned PCP 07/14/16 10/20/18 [place] [address] [place] [address] Assigned PCP 07/14/16 08/02/22 [place] [address] [place] [address] Assigned PCP 10/12/22 11/15/22 documented as of this encounter
--- OUTSIDE RECORDS SUMMARY | 2024-11-26 11:01 | XMS_ITS | Encounter Summary ---
Author Organization [facility] Address [address] [place] [address]. [place] [address] Care Team Providers Care Vegetable Cook Name Role Phone Noy Major MD Primary Care Provider [phone] Noy Major MD Unavailable Noy Major MD Unavailable Noy Major MD Unavailable Encounter Details Date Type Department Care Team (Late st Contact Info) Description 06/13/2017 [facility] Adv[place] [facility] [address] [phone] Mega Curry MD [facility] [address] [place], [place] [id number] Social History Tobacco Use Types Packs/Day Years Used Date Smoking Tobacco: Never Smokeless Tobacco: Never Alcohol Use Standard Drinks/Week Comments Yes 0 (1 standard drink = 0.6 oz pur e alcohol) socially Sex and Gender Information Value Date Recorded Sex Assigned at Male 02/10/2019 3:52 PM CDT 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 Gender Identity Male 02/10/2019 3:52 PM CDT Sexual Orientation Straight 02/10/2019 3: 52 PM CDT documented as of this encounter Plan of Treatment Not on file documented as of this encounter Visit Diagnoses Not on filedocumented in this encounter Additional Health Concerns Assessment Noted Time PHQ-9 Depression Total Score: 7 05/06/20 17 11:30 AM CDT documented as of this encounter Care Teams Vegetable Cook Relationship Specialty [place] [address] [place] [address] PCP - General Family Practice 03/19/11 [place] [address] [place] [address] PCP - Assigned PCP 07/14/16 10/20/18 [place] [address] [place] [address] Assigned PCP 07/14/16 08/02/22 [place] [address] [place] [address] Assigned PCP 10/12/22 11/15/22 documented as of this encounter
--- OUTSIDE RECORDS SUMMARY | 2024-11-26 11:01 | XMS_ITS | Encounter Summary ---
Author Organization [facility] Address [address] [place] [address]. [place] [address] Care Team Providers Care Cash Surrender Calculator Name Role Phone Noy Major MD Primary Care Provider [phone] Noy Major MD Unavailable Noy Major MD Unavailable Noy Major MD Unavailable Encounter Details Date Type Department Care Team (Late st Contact Info) Description 05/28/2011 [facility] Medical Advice [address] [phone] [place] [id number] [place] [address] Moderate major depression (H) (Primary Dx) Social History Tobacco Use Types Packs/Day Years Used Date Smoking Tobacco: Never Smokeless Tobacco: Never Alcohol Use Standard Drinks/Week Comments No 0 (1 standard drink = 0.6 oz pure alcohol) Detox hx. 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 FLIGHT LINE SERVICE ATTENDANT Gender Identity Male 02/10/2019 3:52 PM CDT [...] moderate documented in this encounter Care Teams Cash Surrender Calculator Relationship Specialty [place] [address] [place] [address] PCP - General Family Practice 03/19/11 [place] [address] [place] [address] PCP - Assigned PCP 07/14/16 10/20/18 [place] [address] [place] [address] Assigned PCP 07/14/16 08/02/22 [place] [address] [place] [address] Assigned PCP 10/12/22 11/15/22 documented as of this encounter
--- OUTSIDE RECORDS SUMMARY | 2024-11-26 11:01 | XMS_ITS | Encounter Summary ---
Author Organization [facility] Address [address] [place] [address]. [place] [address] Care Team Providers Care Drawing Supervisor Name Role Phone Noy Major MD Primary Care Provider [phone] Noy Major MD Unavailable Noy Major MD Unavailable Noy Major MD Unavailable Encounter Details Date Type Department Care Team (Late st Contact Info) Description 09/17/2013 [facility] [address] [phone] [facility] Social History Tobacco Use Types Packs/Day Years Used Date Smoking Tobacco: Never Smokeless Tobacco: Never Alcohol Use Standard Drinks/Week Comments Yes 0 (1 standard drink = 0.6 oz pure alcohol) Detox hx. 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 Gender Identity Male 02/10/2019 3:52 PM CDT Sexual Orientation Straight 02/10/2019 3: 52 PM CDT documented as of this encounter Plan of Treatment Not on file documented as of this encounter Visit Diagnoses Not on filedocumented in this encounter Care Teams Drawing Supervisor Relationship Specialty Start Date End Date Noy Major [place] [id number] [place] [address] PCP - General Family Practice 03/19/11 [place] [address] [place] [address] PCP - Assigned PCP 07/14/16 10/20/18 [place] [address] [place] [address] Assigned PCP 07/14/16 08/02/22 [place] [address] [place] [address] Assigned PCP 10/12/22 11/15/22 documented as of this encounter
--- OUTSIDE RECORDS SUMMARY | 2024-11-26 11:01 | XMS_ITS | Encounter Summary ---
Author Organization [facility] Address [address] [place] [address]. [place] [address] Care Team Providers Care Toolroom Keeper Name Role Phone Noy Major MD Primary Care Provider [phone] Noy Major MD Unavailable Noy Major MD Unavailable Noy Major MD Unavailable Encounter Details Date Type Department Care Team (Late st Contact Info) Description 01/11/2014 [facility] Medical Advice [address] [phone] Tri De Jesus, HEAD OF ACQUISITIONS Social History Tobacco Use Types Packs/Day Years Used Date Smoking Tobacco: Never Smokeless Tobacco: Never Alcohol Use Standard Drinks/Week Comments Yes 0 (1 standard drink = 0.6 oz pure alcohol) Detox hx. 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 Gender Identity Male 02/10/2019 3:52 PM CDT Sexual Orientation Straight 02/10/2019 3: 52 PM CDT documented as of this encounter Plan of Treatment Not on file documented as of this encounter Visit Diagnoses Not on filedocumented in this encounter Care Teams Toolroom Keeper Relationship Specialty Start Date End Date Noy Major [place] [id number] [place] [address] PCP - General Family Practice 03/19/11 [place] [address] [place] [address] PCP - Assigned PCP 07/14/16 10/20/18 [place] [address] [place] [address] Assigned PCP 07/14/16 08/02/22 [place] [address] [place] [address] Assigned PCP 10/12/22 11/15/22 documented as of this encounter
--- OUTSIDE RECORDS SUMMARY | 2024-11-26 11:01 | XMS_ITS | Encounter Summary ---
Author Organization [facility] Address [address] [place] [address]. [place] [address] Care Team Providers Care Payroll Lead Name Role Phone Noy Major MD Primary Care Provider [phone] Noy Major MD Unavailable Noy Major MD Unavailable Noy Major MD Unavailable Reason for Visit * Reason Onset Date Comments Pain 05/20/2011 Pain management Encounter Details Date Type Department Care Team (Late st Contact Info) Description 05/20/2011 [facility] [address] [phone] Noy Major MD [address] [place] [address] Pain (Pain management) Social History Tobacco Use Types Packs/Day Years Used Date Smoking Tobacco: Never Smokeless Tobacco: Never Alcohol Use Standard Drinks/Week Comments No 0 (1 standard drink = 0.6 oz pure alcohol) Detox hx. 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 Gender Identity Male 02/10/2019 3:52 PM CDT Sexual Orientation Straight 02/10/2019 3: 52 PM CDT documented as of this encounter Plan of Treatment Not on file documented as of this encounter Visit Diagnoses Not on filedocumented in this encounter Care Teams Payroll Lead Relationship Specialty [place] [address] [place] [address] PCP - General Family Practice 03/19/11 [place] [address] [place] [address] PCP - Assigned PCP 07/14/16 10/20/18 [place] [address] [place] [address] Assigned PCP 07/14/16 08/02/22 [place] [address] [place] [address] Assigned PCP 10/12/22 11/15/22 documented as of this encounter
--- OUTSIDE RECORDS SUMMARY | 2024-11-26 11:01 | XMS_ITS | Encounter Summary ---
Author Organization [facility] Address [address] [place] [address]. [place] [address] Care Team Providers Care Molder Inflated Ball Name Role Phone Noy Major MD Primary Care Provider [phone] Noy Major MD Unavailable Noy Major MD Unavailable Reason for Visit * Reason Onset Date Comments Patient/info Update 08/31/2019 post T1-2 in terlaminar epidural steroid injection Encounter Details Date Type Department Care Team (Late st Contact Info) Description 08/31/2019 Telephone [facility] Pain Management [address] [place] [address] Babs Rhodes MD [place] [address] Patient/info Update (post T1-2 interlaminar epidural steroid [...] CDT Legal Sex Male 3:14 AM SUPERVISOR ADVICE Gender Identity Male 02/10/2019 3:52 PM CDT [...] concerns pt should call the clinic at [phone]. RVISOR ADVICE documented in this encounter Plan of Treatment Not on file documented as of this encounter Visit Diagnoses Not on filedocumented in this encounter Additional Health Concerns Assessment Noted Time PHQ-9 Depression Total Score: 3 07/21/20 19 7:04 AM SUPERVISOR ADVICE documented as of this encounter Care Teams Molder Inflated Ball Relationship Specialty [place] [address] [place] [address] PCP - General Family Practice 03/19/11 [place] [address] [place] [address] Assigned PCP 07/14/16 08/02/22 [place] [address] [place] [address] Assigned PCP 10/12/22 11/15/22 documented as of this encounter
--- OUTSIDE RECORDS SUMMARY | 2024-11-26 11:01 | XMS_ITS | Encounter Summary ---
Author Organization [facility] Address [address] [place] [address]. [place] [address] Care Team Providers Care Low Pressure Boiler Operator Name Role Phone oNy Major MD Primary Care Provider [phone] Noy Major MD Unavailable Noy Major MD Unavailable Noy Major MD Unavailable Encounter Details Date Type Department Care Team (Late st Contact Info) Description 11/10/2014 [facility] [address] [phone] Vasile Mendieta, RN Social History Tobacco Use Types Packs/Day Years Used Date Smoking Tobacco: Never Smokeless Tobacco: Never Alcohol Use Standard Drinks/Week Comments No 0 (1 standard drink = 0.6 oz pure alcohol) Detox hx. 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 Gender Identity Male 02/10/2019 3:52 PM CDT Sexual Orientation Straight 02/10/2019 3: 52 PM CDT documented as of this encounter Plan of Treatment Not on file documented as of this encounter Visit Diagnoses Not on filedocumented in this encounter Care Teams Low Pressure Boiler Operator Relationship Specialty Start Date End Date Noy Major MD [address] [place] [address] PCP - General Family Practice 03/19/11 [place] [address] [place] [address] PCP - Assigned PCP 07/14/16 10/20/18 [place] [address] [place] [address] Assigned PCP 07/14/16 08/02/22 [place] [address] [place] [address] Assigned PCP 10/12/22 11/15/22 documented as of this encounter
--- OUTSIDE RECORDS SUMMARY | 2024-11-26 11:01 | XMS_ITS | Encounter Summary ---
Author Organization [facility] Address [address] [place] [address]. [place] [address] Care Team Providers Care Criminal Records Technician Name Role Phone Noy Major MD Primary Care Provider [phone] Noy Major MD Unavailable Noy Major MD Unavailable Noy Major MD Unavailable Encounter Details Date Type Department Care Team (Late st Contact Info) Description 04/18/2017 [facility] Medical Advice [facility] [address] [phone] Mega Curry MD [facility] [address] [place], [place] [id number] Social History Tobacco Use Types Packs/Day Years Used Date Smoking Tobacco: Never Smokeless Tobacco: Never Alcohol Use Standard Drinks/Week Comments Yes 0 (1 standard drink = 0.6 oz pur e alcohol) socially Sex and Gender Information Value Date Recorded Sex Assigned at Male 02/10/2019 3:52 PM CDT Legal Sex Male 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 AM SIZE MARKER Gender Identity Male 02/10/2019 3:52 PM CDT Sexual Orientation Straight 02/10/2019 3: 52 PM CDT documented as of this encounter Plan of Treatment Not on file documented as of this encounter Visit Diagnoses Not on filedocumented in this encounter Additional Health Concerns Assessment Noted Time PHQ-9 Depression Total Score: 0 11/23/19 17 7:11 AM CDT documented as of this encounter Care Teams Criminal Records Technician Relationship Specialty [place] [address] [place] [address] PCP - General Family Practice 03/19/11 [place] [address] [place] [address] PCP - Assigned PCP 07/14/16 10/20/18 [place] [address] [place] [address] Assigned PCP 07/14/16 08/02/22 [place] [address] [place] [address] Assigned PCP 10/12/22 11/15/22 documented as of this encounter
--- OUTSIDE RECORDS SUMMARY | 2024-11-26 11:01 | XMS_ITS | Encounter Summary ---
Author Organization [facility] Address [address] [place] [address]. [place] [address] Care Team Providers Care Rn Recovery Name Role Phone Noy Major MD Primary Care Provider [phone] Noy Major MD Unavailable Noy Major MD Unavailable Reason for Visit * Reason Comments Medication Refill Encounter Details Date Type Department Care Team (Late st Contact Info) Description 02/02/[address] [phone] [place] [id number] [place] [address] Medication Refill Social History Tobacco Use Types Packs/Day Years Used Date Smoking Tobacco: Never Smokeless Tobacco: Never Alcohol Use Standard Drinks/Week Comments Yes 0 (1 standard drink = 0.6 oz pur e alcohol) socially PHQ-2 Answer Date Recorded PHQ-2 Score 6 04/14/2018 Sex and Gender Information Value Date Recorded Sex Assigned at Male 02/10/2019 3:52 PM CDT Legal Sex Male 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 Is that correct? * Telephone Encounter - Jimena Jay RN - 02/02/2020 4:42 PM CDT Routing refill request to provider for review/approval because: A break in medication Jimena Jay RN [facility] -- Triage Nurse documented in this encounter Plan of Treatment Not on file documented as of this encounter Visit Diagnoses Diagnosis Essential hypertension Unspecified essential hypertension documented in this encounter Additional Health Concerns Assessment Noted Time PHQ-9 Depression Total Score: 3 07/21/20 19 7:04 AM MANAGER FRENCH documented as of this encounter Care Teams Rn Recovery Relationship Specialty [place] [address] [place] [address] PCP - General Family Practice 03/19/11 [place] [address] [place] [address] Assigned PCP 07/14/16 08/02/22 [place] [address] [place] [address] Assigned PCP 10/12/22 11/15/22 documented as of this encounter
--- OUTSIDE RECORDS SUMMARY | 2024-11-26 11:01 | XMS_ITS | Encounter Summary ---
Author Organization [facility] Address [address] [place] [address]. [place] [address] Care Team Providers Care Coding Machine Operator Name Role Phone Noy Major MD Primary Care Provider [phone] Noy Major MD Unavailable Noy Major MD Unavailable Reason for Visit * Reason Onset Date Comments Outreach 10/02/2019 [facility] ATT 1 Encounter Details Date Type Department Care Team (Late st Contact Info) Description 10/02/2019 Telephone [facility] Centralized Scheduling [facility] [place] [address] [place] [address] [place] [address] Outreach ([facility] COLON ATT 1 [...] PM CDT Legal Sex Male 3:14 AM STERILIZATION TECHNICIAN Gender Identity Male 02/10/2019 3:52 PM CDT Sexual Orientation Straight 02/10/2019 3: 52 PM CDT documented as of this encounter Miscellaneous Notes * Telephone Encounter - Amina Camarena 10/02/2019 9:45 AM CST 10/02/2019 Call Regarding Preventive Health Screening Colonoscopy and ReattributionPhysical Attempt 1 Message on voicemail Outreach Child Attendant KT ILIZATION TECHNICIAN documented in this encounter Plan of Treatment Not on file documented as of this encounter Visit Diagnoses Not on filedocumented in this encounter Additional Health Concerns Assessment Noted Time PHQ-9 Depression Total Score: 3 07/21/20 19 7:04 AM STERILIZATION TECHNICIAN documented as of this encounter Care Teams Coding Machine Operator Relationship Specialty [place] [address] [place] [address] PCP - General Family Practice 03/19/11 [place] [address] [place] [address] Assigned PCP 07/14/16 08/02/22 [place] [address] [place] [address] Assigned PCP 10/12/22 11/15/22 documented as of this encounter
--- OUTSIDE RECORDS SUMMARY | 2024-11-26 11:01 | XMS_ITS | Encounter Summary ---
Author Organization [facility] Address [address] [place] [address]. [place] [address] Care Team Providers Care Manager Metrology Name Role Phone Noy Major MD Primary Care Provider [phone] Noy Major MD Unavailable Noy Major MD Unavailable Noy Major MD Unavailable Reason for Visit * Reason Onset Date Comments MyChart Communication 11/12/2014 tramadol Encounter Details Date Type Department Care Team (Latest Contact Info) Description 11/12/2014 [facility] Medical Advice [address] [phone] [place] [id number] [place] [address] MyChart Communication (tramadol) Social History Tobacco Use Types Packs/Day Years Used Date Smoking Tobacco: Never Smokeless Tobacco: Never Alcohol Use Standard Drinks/Week Comments No 0 (1 standard drink = 0.6 oz pure alcohol) Detox hx. 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 BIOPROCESSING MANUFACTURING TECHNICIAN Gender Identity Male 02/10/2019 3:52 PM CDT Sexual Orientation Straight 02/10/2019 3: 52 PM CDT documented as of this encounter Miscellaneous Notes * Telephone Encounter - Vasile Mendieta, RN - 11/14/2014 9:54 AM CDT Yes, [...] Lumbago documented in this encounter Care Teams Manager Metrology Relationship Specialty [place] [address] [place] [address] PCP - General Family Practice 03/19/11 [place] [address] [place] [address] PCP - Assigned PCP 07/14/16 10/20/18 [place] [address] [place] [address] Assigned PCP 07/14/16 08/02/22 [place] [address] [place] [address] Assigned PCP 10/12/22 11/15/22 documented as of this encounter
--- OUTSIDE RECORDS SUMMARY | 2024-11-26 11:01 | XMS_ITS | Encounter Summary ---
Author Organization [facility] Address [address] [place] [address]. [place] [address] Care Team Providers Care Harvest Worker Fruit Name Role Phone Noy Major MD Primary Care Provider [phone] Noy Major MD Unavailable Noy Major MD Unavailable Reason for Visit * Reason Onset Date Comments Procedure 03/09/2019 C7-T1 interlamin ar epidural steroid injection Encounter Details Date Type Department Care Team (Late st Contact Info) Description 03/09/2019 [facility] Pain Management [address] [place] [address] Heidi Morgan, CONSTRUCTION RECRUITER [facility] [address] [place] [address] Procedure (C7-T1 interlaminar epidural steroid injection ) [...] PM CDT Legal Sex Male 3:14 AM 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 [facility] Instruct patient to arrive as directed prior to the scheduled appointment time: ?? [place]: 30 minutes before ?? [place]: 30 minutes [...] SCHEDULE and route to Altagracia Derick. ?? [employer] insurance - For SI joint injections, DO NOT SCHEDULE and route Altagracia Derick. ?? [employer] - Any injection besides hip/shoulder/knee joint DO NOT SCHEDULE and route to Altagracia Derick.She will obtain PA and call pt back to schedule procedure or notify pt of denial. ?? [employer]-Route to Altagracia for review ?? IF SCHEDULING IN [place] AND NEEDS A PA, IT IS OKAY TO SCHEDULE. [place] HANDLES THEIR OWN PA'S AFTER THE PATIENT IS SCHEDULED. PLEASE SCHEDULE AT LEAST 1 WEEK OUT SO A PA CAN BE OBTAINED. Any chance of ? NO If YES, do NOT schedule and route to it application development manager Is an bite block maker needed? No Patient has a drive home? (mandatory) YES: ok Is patient taking any blood thinners (plavix, coumadin, jantoven, warfarin, heparin, pradaxa or dabigatran )? No If hold needed, do NOT schedule, route to it application development manager Is patient taking any aspirin products (includes Excedrin and Fiorinal)? No ?? If more than 325mg/day do NOT schedule; route to it application development manager ?? For CERVICAL procedures, hold all aspirin products for 6 days. ?? Tell pt that if aspirin product is not held for 6 days, the procedure WILL BE cancelled. Does the patient have a bleeding or clotting disorder? No ?? If YES, okay to schedule AND route to RN nurse pool For any patients with platelet count <100, [...] YES, do NOT schedule and route to it application development manager Are you able to get on and off an exam table with minimal or no assistance? Yes If NO, do NOT schedule and route to it application development manager Are you able to roll over and lay on your stomach with minimal or no assistance? Yes If NO, do NOT schedule and route to it application development manager Any allergies to contrast dye, iodine, shellfish, or numbing and steroid medications? No If YES, route to it application development manager AND add allergy information to appointment notes [...] years? Yes ?? Was MRI done at [facility]? Yes ?? If not, where was it done? N/A ?? If MRI was not done at [facility], [facility] or [facility] do NOT schedule and route to [...] patient have any questions? NO Saba Cooney [facility] documented in this encounter Plan of Treatment Not on file documented as of this encounter Visit Diagnoses Not on filedocumented in this encounter Additional Health Concerns Assessment Noted Time PHQ-9 Depression Total Score: 18 019 7:03 AM CDT documented as of this encounter Care Teams Harvest Worker Fruit Relationship Specialty [place] [address] [place] [address] PCP - General Family Practice 03/19/11 [place] [address] [place] [address] Assigned PCP 07/14/16 08/02/22 [place] [address] [place] [address] Assigned PCP 10/12/22 11/15/22 documented as of this encounter
--- OUTSIDE RECORDS SUMMARY | 2024-11-26 11:01 | XMS_ITS | Clinical Summary ---
Author Organization [facility] Address [address] [place] [address]. [place] [address] Care Team Providers Care Shipping Helper Name Role Phone Noy Major MD Primary Care Provider Allergies Active Allergy Reactions Criticality Noted Date Comments Dave Inhibitors Cough 08/20/2004 Fluoxetine Low 03/21/2010 Chest wall pain Medications omeprazole (PRILOSEC) [address] capsuleIndications :Gastroesophageal reflux disease without esophagitis Take 1 capsule (20 mg) by mouth daily 90 capsule 3 9 Active metoprolol succinate ER (TOPROL-XL) 50 MG 24 hr tabletIndications: Essential hypertension,Ascen ding aorta dilatation TAKE 1 TABLET(50 MG) BY MOUTH DAILY 90 tablet 3 0 Active methocarbamol (ROBAXIN) 500 MG tabletIndications: Muscle spasm Take 2 tablets (1,000 mg) by mouth 4 times daily as needed for muscle spasms 150 tablet 1 0 Active DULoxetine (CYMBALTA) 60 MG capsuleIndications :Cervical radiculopathy,Fabrication And Assembly Supervisor chele neck pain Take 1 capsule (60 mg) by mouth daily 30 capsule 3 0 Active pregabalin (LYRICA) 150 MG capsuleIndications :Lumbar radiculopathy Take 1 capsule (150 mg) by mouth 3 times daily 90 capsule 1 0 Active amLODIPine (NORVASC) 5 MG tabletIndications: Essential hypertension TAKE 1 TABLET(5 MG) BY MOUTH DAILY 90 tablet 0 Active valsartan-hydrochl orothiazide (DIOVAN HCT) 320-25 MG tabletIndications: Essential hypertension with goal blood pressure less than 140/90 Take 1 tablet by mouth daily 90 tablet 1 Active Active Problems Problem Noted Date Diagnosed Date Alcohol dependence in remission 10/11/2019 Cervical segment dysfunction 09/07/2019 Cervicalgia 09/07/2019 Somatic dysfunction of lumbar region 09/07/2019 Somatic dysfunction of sacral region 09/07/2019 Ascending aortic aneurysm 03/23/2018 Morbid obesity 12/22/2017 Erectile dysfunction, unspecified erectile dysfu nction type 12/22/2017 Thoracic aortic aneurysm without rupture 018 Chronic bilateral low back pain without sciatica 05/09/2017 S/P cervical spinal fusion 03/21/2017 Cervical radiculopathy 03/13/2017 Bilateral low back pain with out sciatica, unspecified chronicity 11/12/2016 Essential hypertension 02/24/2016 Low back pain 11/27/2012 Overview (06/19/2015): Diagnosis updated by automated process. Provider to review and confirm. Generalized anxiety disorder 06/10/2011 Chronic low back pain 05/16/2011 Insomnia 03/08/2011 Cystic disease of liver 02/06/2011 Impetigo 02/06/2011 Leg edema 02/06/2011 Moderate major depression 11/01/2010 CARDIOVASCULAR SCREENING; LDL GOAL LESS THAN 130 06/17/2010 Obesity 04/01/2006 Overview (05/18/2015): Problem list name updated by automated process. Provider to review Headache 11/11/2005 Overview (05/18/2015): Problem list name updated by automated process. Provider to review Resolved Problems Problem Noted Date Diagnosed Date Resolved Date Alcohol dependence in remission 03/10/2017 10/11/2019 HTN, goal below 140/90 10/28/201102/23 Low back pain 04/08/2011 11/12/2016 Mild major depression 03/21/20102010 Dysthymic disorder 04/01/2006 0 DISC DIS NEC/NOS-THORAC(aka THORACIC) 07/27/2004 10/16/2017 Major depressive disorder, s araceli episode, mild 01/04/2004 04/01/2006 Other and unspecified alcoho l dependence, unspecified drinking behavior 05/30/2003 08/25/2006 Immunizations Name Administration Dates Next Due DTaP, Unspecified 07/06/2008 HepA-Peds, Unspecified 07/22/2013 HepB, Unspecified 07/22/2013 Influenza (IIV3) PF 06/02/2011 MMR (MMRII) 07/22/2013 Pneumococcal 23 valent 08/27/2019 TDAP Vaccine [...] PM CDT Legal Sex Male 3:14 AM CABLE SWAGER Gender Identity Male 02/10/2019 3:52 PM CDT Sexual Orientation Straight 02/10/2019 3: 52 PM CDT Last Filed Vital Signs Vital Sign Reading Time Taken Comments Blood Pressure 128/86 02/29/2020 11:05 AM CDT Pulse 102 02/29/2020 11:05 AM CDT Temperature 36.7 C (98.1 F) 10/11/2019 10:25 AM CABLE SWAGER Respiratory Rate 18 10/11/2019 10:25 AM CABLE SWAGER Oxygen Saturation 96% 02/29/2020 11:05 AM CDT Inhaled Oxygen Concentration - - Weight 123.8 kg (273 lb) 02/29/2020 11:05 AM CDT Height 185.4 cm (6' 1) 10/11/2019 10:25 AM CABLE SWAGER Body Mass Index 36.02 10/11/2019 10:25 AM CABLE SWAGER Plan of Treatment Health Maintenance Due Date Last Done Comments ADVANCE CARE PLANNING 1961 CT COLONOGRAPHY 1961 FLEX SIG 1961 URINE DRUG SCREEN 1961 sDNA (Cologuard) 1961 COLONOSCOPY 1971 YEARLY PREVENTIVE VISIT 07/06/2009 07/06/2008 ZOSTER IMMUNIZATION (1 of 2) 2011 PHQ-9 01/19/2020 07/20/2019, 01/17, 12/22/2017, Additional history exists ANNUAL REVIEW OF HM ORDERS 08/27/2020 08/27/2019 COLORECTAL CANCER SCREENING 08/27/2020 FIT 08/27/2020 08/27/2019 Pneumococcal Vaccine: 50+ Years (2 of 2 - PCV) 08/27/2020 08/27/2019 BMP 09/20/2020 09/20/2019, 08/18, 02/08/2019, Additional history exists CREATININE 09/20/2020 09/20/2019, 08/18, 02/08/2019, Additional history exists DIABETES SCREENING 09/20/2022 09/20/2019, 0 08/27/2019, 08/27/2019, Additional history exists DTAP/TDAP/TD IMMUNIZATION (4 - Td or Tdap) 07/22/2023 07/22/2013, 07/06/2008, 07/06/2008, Additional history exists LIPID 02/09/2024 02/08/2019, 05/0 02/2018, 11/12/2016, Additional history exists COVID-19 Vaccine ( - 2023- season) 2024 INFLUENZA VACCINE (#1) 2024 06/02/2011 RSV VACCINE (1 - 1-dose 75+ series) 2036 HEPATITIS C SCREENING Completed 11/12/2016 DEPRESSION ACTION PLAN Completed 8, 11/21/2016, 11/21/2016, Additional history exists HIV SCREENING Completed 12/22/2017 HPV IMMUNIZATION Aged Out No longer e ligible based on patient's age to complete this topic MENINGITIS IMMUNIZATION Aged Out No l onger eligible based on patient's age to complete this topic Medical Devices Implanted Type Area Wind Energy Project Manager Device Identifier Shelf Expiration Date Model / Serial / Lot Graft Bone Putty Dbx 01ml [id number] Implanted:Qty : 1 on 03/21/2017 by Mega Curry MD at [facility] Bone/Ti ssue/Bi ologic N/A: Spine Cervical MUSCULOSKELETAL ROSS 10/15/2018 [id number] / [id number] / Archon Plate Implanted:Qty : 1 on 03/21/2017 by Mega Curry MD at [facility] N/A: Spine Cervical [id number] / / [id number] 002 Archon Screw Implanted:Qty : 2 on 03/21/2017 by Mega Curry MD at [facility] N/A: Spine Cervical [id number] / / [id number] 002 Archon Screw Implanted:Qty : 2 on 03/21/2017 by Mega Curry MD at [facility] N/A: Spine Cervical [id number] / / [id number] 002 Cor Sm Acr Implanted:Qty : 1 on 03/21/2017 by Mega Curry MD at [facility] N/A: Spine Cervical [id number] / / [id number] 002 Procedures Procedure Name Priority Date/Time Associated Diagnosis Comments BASIC METABOLIC PANEL STAT 09/20/2019 10:33 AM CABLE SWAGER FECAL COLORECTAL CANCER SCREEN FIT Routine 08/27/2019 12:06 PM CABLE SWAGER Screen for colon cancer LIPID REFLEX TO [...] Basic metabolic panel (BMP) (09/20/2019 10:33 AM [facility]) Sodium 139 133 - 144 mmol/L 09/20/2019 12:04 PM [facility] Potassium 4.1 3.4 - 5.3 mmol/L 09/20/2019 12:04 PM [facility] Comment:Specimen slightly he molyzed, potassium may be falsely elevated Chloride 106 94 - 109 mmol/L 09/20/2019 12:04 PM [facility] Carbon Dioxide 27 20 - 32 mmol/L 09/20/2019 11:10 AM [facility] Anion Gap 6 3 - 14 mmol/L 09/20/2019 11:10 AM [facility] Glucose 105(H) 70 - 99 mg/dL 09/20/2019 11:10 AM [facility] Urea Nitrogen 10 7 - 30 mg/dL 09/20/2019 11:10 AM [facility] Creatinine 0.79 0.66 - 1.25 mg/dL 09/20/2019 11:10 AM [facility] GFR Estimate >90 >60 mL/min/{1. 73_m2} 09/20/2019 11:10 AM [facility] Comment: Non GFR Calc Starting 08/04/2018, serum creatinine based estimated GFR (eGFR) will be calculated using the Chronic Kidney Disease Epidemiology Collaboration (CKD-EPI) equation. GFR Estimate If Black >90 >60 mL/min/{1. 73_m2} 09/20/2019 11:10 AM [facility] Comment: GFR Calc Starting 08/04/2018, serum creatinine based estimated GFR (eGFR) will be calculated using the Chronic Kidney Disease Epidemiology Collaboration (CKD-EPI) equation. Calcium 9.5 8.5 - 10.1 mg/dL 09/20/2019 11:10 AM [facility] Blood specimen (specimen) 09/20/2019 10:33 AM CABLE SWAGER 09/20/2019 10:42 AM CABLE SWAGER us Rocael Palencia MD LAB - BLOOD ORDERABLES Fi nal Result [facility] [address] [place], [place] [address] [phone] * Fecal colorectal cancer screen FIT - Future (S+30) (08/27/2019 12:06 PM CABLE SWAGER) Occult Blood Scn FIT Negative NEG^Negati ve 09/01/2019 7:22 PM CABLE SWAGER [facility] Stool specimen (specimen) 08/27/2019 12:06 PM CABLE SWAGER 09/01/2019 12:07 PM CABLE SWAGER us Noy Major MD LAB - STOOLS ORDERABLES Final Re sult [facility] [address] [place] [address] * (ABNORMAL) Lipid panel reflex to direct LDL Fasting (02/08/2019 10:43 AM CDT) Cholesterol 162 <200 mg/dL 02/09/2019 11:04 AM CDT [facility] Triglycerides 276(H) <150 mg/dL 02/09/2019 11:04 AM CDT [facility] Comment: Borderline high: 150-199 mg/dl High: 200-499 mg/dl Very high: >499 mg/dl Fasting specimen HDL Cholesterol 38(L) >39 mg/dL 9 11:10 AM CDT [facility] LDL Cholesterol Calculated 69 <100 mg/dL 02/09/2019 11:10 AM CDT [facility] Comment:Desirable: <100 mg/d l Non HDL Cholesterol 124 <130 mg/dL 02/09/2019 11:10 AM CDT [facility] Blood specimen (specimen) 02/08/2019 10:43 AM CDT 02/08/2019 10:44 AM CDT us Noy Major MD LAB - BLOOD ORDERABLES Final Res ult [facility] [address] [place] [address] * HIV Antigen Antibody Combo (12/22/2017 8:39 AM CDT) HIV Antigen Antibody Combo Nonreactive NR^Nonrea ctive 12/22/2017 8:13 PM CDT [facility] Comment:HIV-1 p24 Ag & HIV-1 /HIV-2 Ab Not Detected Blood specimen (specimen) 12/22/2017 8:39 AM CDT 12/22/2017 8:40 AM CDT us Noy Major MD LAB - BLOOD ORDERABLES Final Res ult Performing Organization Address City/[facility]/ZIP Co de Phone Number [facility] [address] [place] [address] * Hepatitis C Screen Reflex to HCV RNA Quant and Genotype (11/12/2016 9:37 AM CDT) Hepatitis C Antibody Nonreactive Assay performance characteristics have not been established for newborns, infants, and children NR [facility] Blood specimen (specimen) 11/12/2016 9:37 AM CDT 11/12/2016 9:38 AM CDT Noy Major MD LAB - BLOOD ORDERABLES Final Res ult [facility] [address] [place] [address] from Last 3 Months or Most Recently Relevant to Health Maintenance Insurance [employer] [phone] (Work) [id number] [place] [address] [employer] [phone] (Work) [address] [place] [address] [employer] Advance Directives For more information, please contact: [phone] * Full Code (Latest Code Status on File) Date Activated Date Inactivated Comments 03/22/2017 9:49 AM 09/20/2019 10:11 AM * Full Code Date Activated Date Inactivated Comments 03/21/2017 5:02 PM 03/22/2017 9:49 AM Care Teams Shipping Helper Relationship Specialty [place] [address] [place] [address] PCP - General Family Practice 03/19/11
--- OUTSIDE RECORDS SUMMARY | 2024-11-26 11:01 | XMS_ITS | Encounter Summary ---
Author Organization [facility] Address [address] [place] [address]. [place] [address] Care Team Providers Care Chemicals Distiller Name Role Phone Noy Major MD Primary Care Provider [phone] Noy Major MD Unavailable Noy Major MD Unavailable Reason for Visit * Reason Onset Date Comments Patient/info Update 03/02/2020 Encounter Details Date Type Department Care Team (Late st Contact Info) Description 03/02/2020 Telephone [facility] Pain Management [address] [place] [address] Heidi Morgan, NUTRITION HELPER [facility] [address] [place] [address] Patient/info Update Social History Tobacco Use Types Packs/Day Years Used Date Smoking Tobacco: Never Smokeless Tobacco: Never Alcohol Use Standard Drinks/Week Comments Yes 0 (1 standard drink = 0.6 oz pur e alcohol) socially PHQ-2 Answer Date Recorded PHQ-2 Score 6 04/14/2018 Sex and Gender Information Value Date Recorded Sex Assigned at Male 02/10/2019 3:52 PM CDT Legal Sex Male 3:14 AM RESIDENCE DIRECTOR Gender Identity Male 02/10/2019 3:52 PM [...] or video, in 6 weeks Dolores Islas Crown Assembly Machine Operator [facility] documented in this encounter Plan of Treatment Not on file documented as of this encounter Visit Diagnoses Not on filedocumented in this encounter Additional Health Concerns Assessment Noted Time PHQ-9 Depression Total Score: 3 07/21/20 19 7:04 AM RESIDENCE DIRECTOR documented as of this encounter Care Teams Chemicals Distiller Relationship Specialty [place] [address] [place] [address] PCP - General Family Practice 03/19/11 [place] [address] [place] [address] Assigned PCP 07/14/16 08/02/22 [place] [address] [place] [address] Assigned PCP 10/12/22 11/15/22 documented as of this encounter
--- OUTSIDE RECORDS SUMMARY | 2024-11-26 11:02 | XMS_ITS | Encounter Summary ---
Author Organization [facility] Address [address] [place] [address]. [place] [address] Care Team Providers Care Applications Sales Representative Name Role Phone Noy Major MD Primary Care Provider [phone] Noy Major MD Unavailable Noy Major MD Unavailable Noy Major MD Unavailable Encounter Details Date Type Department Care Team (Late st Contact Info) Description 03/27/2016 [facility] Medical Advice [address], [address] [place] [address] Yvonne Rivera, BILLING ANALYST Social History Tobacco Use Types Packs/Day Years Used Date Smoking Tobacco: Never Smokeless Tobacco: Never Alcohol Use Standard Drinks/Week Comments Yes 0 (1 standard drink = 0.6 oz pur e alcohol) socially Sex and Gender Information Value Date Recorded Sex Assigned at Male 02/10/2019 3:52 PM CDT Legal Sex Male 3:14 AM MAINTENANCE GROUNDSKEEPER Gender Identity Male 02/10/2019 3:52 PM CDT Sexual Orientation Straight 02/10/2019 3: 52 PM CDT documented as of this encounter Plan of Treatment Not on file documented as of this encounter Visit Diagnoses Not on filedocumented in this encounter Care Teams Applications Sales Representative Relationship Specialty [place] [address] [place] [address] PCP - General Family Practice 03/19/11 [place] [address] [place] [address] PCP - Assigned PCP 07/14/16 10/20/18 [place] [address] [place] [address] Assigned PCP 07/14/16 08/02/22 [place] [address] [place] [address] Assigned PCP 10/12/22 11/15/22 documented as of this encounter
--- OUTSIDE RECORDS SUMMARY | 2024-11-26 11:02 | XMS_ITS | Encounter Summary ---
Author Organization [facility] Address [address] [place] [address]. [place] [address] Care Team Providers Care Detective Lieutenant Name Role Phone Noy Major MD Primary Care Provider [phone] Noy Major MD Unavailable Noy Major MD Unavailable Encounter Details Date Type Department Care Team (Late st Contact Info) Description 02/11/2019 [facility] Medical Advice [address], [address] [place] [address] Marce Velazquez, LEONARDA Social History [...] PM CDT Legal Sex Male 3:14 AM WAREHOUSE SPECIALIST Gender Identity Male 02/10/2019 3:52 PM CDT Sexual Orientation Straight 02/10/2019 3: 52 PM CDT documented as of this encounter Plan of Treatment Not on file documented as of this encounter Visit Diagnoses Not on filedocumented in this encounter Additional Health Concerns Assessment Noted Time PHQ-9 Depression Total Score: 18 019 7:03 AM CDT documented as of this encounter Care Teams Detective Lieutenant Relationship Specialty [place] [address] [place] [address] PCP - General Family Practice 03/19/11 [place] [address] [place] [address] Assigned PCP 07/14/16 08/02/22 [place] [address] [place] [address] Assigned PCP 10/12/22 11/15/22 documented as of this encounter
--- OUTSIDE RECORDS SUMMARY | 2024-11-26 11:02 | XMS_ITS | Encounter Summary ---
Author Organization [facility] Address [address] [place] [address]. [place] [address] Care Team Providers Care Sausage Grinder Name Role Phone Noy Major MD Primary Care Provider [phone] Noy Major MD Unavailable Noy Major MD Unavailable Noy Major MD Unavailable Reason for Visit * Reason Onset Date Comments MyChart Communication 03/20/2011 back pain Encounter Details Date Type Department Care Team (Latest Contact Info) Description 03/20/2011 My[facility] Medical Advice [address] [phone] [place] [id number] [place] [address] MyChart Communication (back pain) Social History Tobacco Use Types Packs/Day Years Used Date Smoking Tobacco: Never Smokeless Tobacco: Never Alcohol Use Standard Drinks/Week Comments No 0 (1 standard drink = 0.6 oz pure alcohol) Detox hx. 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 Gender Identity Male 02/10/2019 3:52 PM CDT Sexual Orientation Straight 02/10/2019 3: 52 PM CDT documented as of this encounter Plan of Treatment Not on file documented as of this encounter Visit Diagnoses Not on filedocumented in this encounter Care Teams Sausage Grinder Relationship Specialty [place] [address] [place] [address] PCP - General Family Practice 03/19/11 [place] [address] [place] [address] PCP - Assigned PCP 07/14/16 10/20/18 [place] [address] [place] [address] Assigned PCP 07/14/16 08/02/22 [place] [address] [place] [address] Assigned PCP 10/12/22 11/15/22 documented as of this encounter
--- OUTSIDE RECORDS SUMMARY | 2024-11-26 11:02 | XMS_ITS | Encounter Summary ---
Author Organization [facility] Address [address] [place] [address]. [place] [address] Care Team Providers Care Dance Therapist Name Role Phone Noy Major MD Primary Care Provider [phone] Noy Major MD Unavailable Noy Major MD Unavailable Noy Major MD Unavailable Encounter Details Date Type Department Care Team (Late st Contact Info) Description 09/08/2012 [facility] [address] [phone] [facility] Social History Tobacco Use Types Packs/Day Years Used Date Smoking Tobacco: Never Smokeless Tobacco: Never Alcohol Use Standard Drinks/Week Comments No 0 (1 standard drink = 0.6 oz pure alcohol) Detox hx. 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 Gender Identity Male 02/10/2019 3:52 PM CDT Sexual Orientation Straight 02/10/2019 3: 52 PM CDT documented as of this encounter Plan of Treatment Not on file documented as of this encounter Visit Diagnoses Not on filedocumented in this encounter Care Teams Dance Therapist Relationship Specialty Start Date [place] Date N[place] [id number] [place] [address] PCP - General Family Practice 03/19/11 [place] [address] [place] [address] PCP - Assigned PCP 07/14/16 10/20/18 [place] [address] [place] [address] Assigned PCP 07/14/16 08/02/22 [place] [address] [place] [address] Assigned PCP 10/12/22 11/15/22 documented as of this encounter
--- OUTSIDE RECORDS SUMMARY | 2024-11-26 11:02 | XMS_ITS | Encounter Summary ---
Author Organization [facility] Address [address] [place] [address]. [place] [address] Care Team Providers Care Customer Service Consultant Name Role Phone Noy Major MD Primary Care Provider [phone] Noy Major MD Unavailable Noy Major MD Unavailable Noy Major MD Unavailable Reason for Visit * Reason Onset Date Comments Refill Request 04/26/2016 Losartan Encounter Details Date Type Department Care Team (Late st Contact Info) Description 04/26/[address] [phone] Noy Major MD [address] [place] [address] [phone] Refill Request (Losartan) Social History Tobacco Use Types Packs/Day Years Used Date Smoking Tobacco: Never Smokeless Tobacco: Never Alcohol Use Standard Drinks/Week Comments Yes 0 (1 standard drink = 0.6 oz pur e alcohol) socially Sex and Gender Information Value Date Recorded Sex Assigned at Male 02/10/2019 3:52 PM CDT 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 Gender Identity Male 02/10/2019 3:52 PM CDT Sexual Orientation Straight 02/10/2019 3: 52 PM CDT documented as of this encounter Miscellaneous Notes * Telephone Encounter - Vasile Mendieta RN - 04/26/2016 3:56 PM CDT Routing refill request to provider for review/approval because: Labs not current: * Telephone Encounter - Manohar [place] - 04/26/2016 1:58 PM CDT Pending Prescriptions: Disp Refills losartan (COZAAR) 100 MG tablet 90 tab*1 Sig: Take 1 tablet (100 mg) by mouth daily Last Written Prescription Date: 08/31/2015 Last Fill Quantity: 90, # refills: 1 [facility] prescribing provider: 02/24/2016 POTASSIUM Date Value Ref [...] benign documented in this encounter Care Teams Customer Service Consultant Relationship Specialty [place] [address] [place] [address] PCP - General Family Practice 03/19/11 [place] [address] [place] [address] PCP - Assigned PCP 07/14/16 10/20/18 [place] [address] [place] [address] Assigned PCP 07/14/16 08/02/22 [place] [address] [place] [address] Assigned PCP 10/12/22 11/15/22 documented as of this encounter
--- OUTSIDE RECORDS SUMMARY | 2024-11-26 11:02 | XMS_ITS | Encounter Summary ---
Author Organization [facility] Address [address] [place] [address]. [place] [address] Care Team Providers Care Underwriting Account Representative Name Role Phone Noy Major MD Primary Care Provider [phone] Noy Major MD Unavailable Noy Major MD Unavailable Noy Major MD Unavailable Encounter Details Date Type Department Care Team (Late st Contact Info) Description 04/06/2011 [facility] [address] [phone] [facility] Social History Tobacco Use Types Packs/Day Years Used Date Smoking Tobacco: Never Smokeless Tobacco: Never Alcohol Use Standard Drinks/Week Comments No 0 (1 standard drink = 0.6 oz pure alcohol) Detox hx. 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 Gender Identity Male 02/10/2019 3:52 PM CDT Sexual Orientation Straight 02/10/2019 3: 52 PM CDT documented as of this encounter Plan of Treatment Not on file documented as of this encounter Visit Diagnoses Not on filedocumented in this encounter Care Teams Underwriting Account Representative Relationship Specialty Start [place] N[place] [id number] [place] [address] PCP - General Family Practice 03/19/11 [place] [address] [place] [address] PCP - Assigned PCP 07/14/16 10/20/18 [place] [address] [place] [address] Assigned PCP 07/14/16 08/02/22 [place] [address] [place] [address] Assigned PCP 10/12/22 11/15/22 documented as of this encounter
--- OUTSIDE RECORDS SUMMARY | 2024-11-26 11:02 | XMS_ITS | Encounter Summary ---
Author Organization [facility] Address [address] [place] [address]. [place] [address] Care Team Providers Care Labor Relations Worker Name Role Phone Noy Major MD Primary Care Provider [phone] Noy Major MD Unavailable Noy Major MD Unavailable Noy Major MD Unavailable Encounter Details Date Type Department Care Team (Late st Contact Info) Description 06/18/2011 [facility] Extended Documentation [address] [address] Nazanin Holland [facility] [address] [place] [address], [address] [place], [place] Social History Tobacco Use Types Packs/Day Years Used Date Smoking Tobacco: Never Smokeless Tobacco: Never Alcohol Use Standard Drinks/Week Comments No 0 (1 standard drink = 0.6 oz pure alcohol) Detox hx. 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 ASSISTANT Gender Identity Male 02/10/2019 3:52 PM CDT Sexual Orientation Straight 02/10/2019 3: 52 PM CDT documented as of this encounter Plan of Treatment Not on file documented as of this encounter Visit Diagnoses Not on filedocumented in this encounter Care Teams Labor Relations Worker Relationship Specialty [place] [address] [place] [address] PCP - General Family Practice 03/19/11 [place] [address] [place] [address] PCP - Assigned PCP 07/14/16 10/20/18 [place] [address] [place] [address] Assigned PCP 07/14/16 08/02/22 [place] [address] [place] [address] Assigned PCP 10/12/22 11/15/22 documented as of this encounter
--- OUTSIDE RECORDS SUMMARY | 2024-11-26 11:02 | XMS_ITS | Clinical Summary ---
Author Organization [facility] Address [address] [place] [address] Care Team Providers Care Commercial Helicopter Pilot Name Role Phone Maya Palma PA-C Primary Care Provider [phone] Allergies Active Allergy Reactions Criticality Noted Date Comments Dave Inhibitors Cough 08/20/2004 Amoxicillin Rash 12/28/2002 rash Fluoxetine Chest Pain Low 03/21/2010 Chest wall pain Medications tramadol (ULTRAM) 50 mg tablet Take 1 tablet by mouth. Take 1-2 tabs twice per day for Osteoarthritis pain 0 0 Active amLODIPine (NORVASC) 5 mg tablet Take 1 tablet by mouth once daily. 0 0 Active citalopram (CELEXA) 20 mg tablet Take 1 tablet by mouth once daily. 0 0 Active gabapentin (NEURONTIN) 600 mg tablet Take 600 mg by mouth. 8 Active ibuprofen (ADVIL; MOTRIN) 800 mg tablet Take 800 mg by mouth. 8 Active valsartan-hydr ochlorothiazid e (DIOVAN HCT) 160-25 mg per tablet TK 1 T PO D 3 8 Active OMEPRAZOLE ORAL Active DULoxetine (CYMBALTA) 60 mg Delayed-releas e capsule Take 60 mg by mouth. 9 Active methocarbamol (ROBAXIN) 750 mg tablet Take 750 mg by mouth. 0 Active pregabalin (LYRICA) 100 mg capsule Take 100 mg by mouth. 0 Active Immunizations Immunization Administration Dates Next Due Tdap 06/18/2020() Social [...] at Not on file Legal Sex Male 7:57 AM FIRER KILN Gender Identity Not on file Sexual Orientation Not on file Obstetrics History Last Filed Vital Signs Vital Sign Reading Time Taken Comments Blood Pressure 134/88 06/18/2020 3:27 PM FIRER KILN Pulse 70 06/18/2020 3:27 PM FIRER KILN Temperature 36.6 C (97.8 F) 06/18/2020 5:24 PM FIRER KILN Respiratory Rate 16 06/18/2020 3:27 PM FIRER KILN Oxygen Saturation 96% 06/18/2020 3:27 PM FIRER KILN Inhaled Oxygen Concentration - - Weight 127 kg (280 lb) 06/18/2020 3:27 PM FIRER KILN Height 188 cm (6' 2) 06/18/2020 3:27 PM FIRER KILN Body Mass Index 35.95 06/18/2020 3:27 PM FIRER KILN Plan of Treatment Health Maintenance Due Date Last Done Comments Tdap 1972 Depression screening for age 12+ 1973 HIV for age 15-65 1976 BMI (ht and wt on same day) for age 18+ 1979 Hepatitis C screening for age 18-79 1979 Tetanus booster 1981 Colonoscopy through age 75 2006 Lipids for age 45-75 2006 Pneumococcal series for age 50+ (1 of 1 - PCV) 012 Zoster (shingles) series for age 50+ (1 of 2) 09/13/19 12 COVID-19 vaccine series (1 - 2023- season) 4 Influenza Vaccine (Season Ended) 2025 RSV vaccine for adults or pr egnancy (1 - 1-dose 75+ series) 2036 Insurance [employer] * Guarantor: [employer] Account Type Relation to Patient Date of Phone Billing Address [facility] 2000 ATT[address] [place] [address] Care Teams Commercial Helicopter Pilot Relationship Specialty Start Date End Date Maya Palma PA-C [address] [place], [place] [id number] PCP - General Physician Balance Wheel Screw Hole Tapper 06/30/24
--- OUTSIDE RECORDS SUMMARY | 2024-11-26 11:02 | XMS_ITS | Encounter Summary ---
Author Organization [facility] Address [address] [place] [address]. [place] [address] Care Team Providers Care Delivery Manager Name Role Phone Suresh Webster MD Primary Care Provider Unavailable Noy Major MD Primary Care Provider [phone] Noy Major MD Unavailable Noy Major MD Unavailable Noy Major MD Unavailable Reason for Visit * Reason Onset Date Comments Hypertension 01/11/2011 Encounter Details Date Type Department Care Team (Late st Contact Info) Description 01/11/2011 [facility] Medical Advice [address] [address] Noy Major MD [address] [place] [address] Hypertension Social History Tobacco Use Types Packs/Day Years Used Date Smoking Tobacco: Never Alcohol Use Standard Drinks/Week Comments No 0 (1 standard drink = 0.6 oz pure alcohol) Detox hx. 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 Gender Identity Male 02/10/2019 3:52 PM CDT Sexual Orientation Straight 02/10/2019 3: 52 PM CDT documented as of this encounter Miscellaneous Notes * Telephone Encounter - Vasile Roque - 01/11/2011 9:11 AM CDT documented in this encounter Plan of Treatment Not on file documented as of this encounter Visit Diagnoses Not on filedocumented in this encounter Care Teams Delivery Manager Relationship Specialty Start Date End Date Suresh Webster MD PCP - General 07/22/03 03/18/11 [place] [address] [place] [address] PCP - General Family Practice 03/19/11 [place] [address] [place] [address] PCP - Assigned PCP 07/14/16 10/20/18 [place] [address] [place] [address] Assigned PCP 07/14/16 08/02/22 [place] [address] [place] [address] Assigned PCP 10/12/22 11/15/22 documented as of this encounter
--- OUTSIDE RECORDS SUMMARY | 2024-11-26 11:02 | XMS_ITS | Encounter Summary ---
Author Organization [facility] Address [address] [place] [address]. [place] [address] Care Team Providers Care Transplanter Name Role Phone Noy Major MD Primary Care Provider [phone] Noy Major MD Unavailable Noy Major MD Unavailable Reason for Visit * Reason Comments Medication Refill Gabapentin Encounter Details Date Type Department Care Team (Late st Contact Info) Description 08/05/[address] [address] [place] [id number] [place] [address] Medication Refill (Gabapentin) Social History Tobacco [...] PM CDT Legal Sex Male 3:14 AM BALANCE RECESSER Gender Identity Male 02/10/2019 3:52 PM CDT [...] RF 02/08/19 #270 RF x 1 03/09/2019 [facility] Plan: ?? 1. Pain Physical [...] increase in pain since first session of direct care counselor this past weekend. I advised he monitor [...] of care. ?? Marine Morgan APRN, CNP [facility] NCE RECESSER documented in this encounter Plan of Treatment Not on file documented as of this encounter Visit Diagnoses Diagnosis Chronic bilateral low back pain without sciatica documented in this encounter Additional Health Concerns Assessment Noted Time PHQ-9 Depression Total Score: 3 07/21/20 19 7:04 AM BALANCE RECESSER documented as of this encounter Care Teams Transplanter Relationship Specialty [place] [address] [place] [address] PCP - General Family Practice 03/19/11 [place] [address] [place] [address] Assigned PCP 07/14/16 08/02/22 [place] [address] [place] [address] Assigned PCP 10/12/22 11/15/22 documented as of this encounter
--- OUTSIDE RECORDS SUMMARY | 2024-11-26 11:02 | XMS_ITS | Encounter Summary ---
Author Organization [facility] Address [address] [place] [address]. [place] [address] Care Team Providers Care Airline Transport Pilot Name Role Phone Noy Major MD Primary Care Provider [phone] Noy Major MD Unavailable Noy Major MD Unavailable Noy Major MD Unavailable Reason for Visit * Reason Onset Date Comments Refill Request 07/08/2016 Ibuprofen, Losar bajwa Encounter Details Date Type Department Care Team (Late st Contact Info) Description 07/08/[address] [phone] Noy Major MD [address] [place] [address] Refill Request (Ibuprofen, Losartan) Social History Tobacco Use Types Packs/Day Years Used Date Smoking Tobacco: Never Smokeless Tobacco: Never Alcohol Use Standard Drinks/Week Comments Yes 0 (1 standard drink = 0.6 oz pur e alcohol) socially Sex and Gender Information Value Date Recorded Sex Assigned at Male 02/10/2019 3:52 PM CDT 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 Sex Male 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 Gender Identity Male 02/10/2019 3:52 PM CDT Sexual Orientation Straight 02/10/2019 3: 52 PM CDT documented as of this encounter Miscellaneous Notes * Telephone Encounter - Dayna Davis RN - 07/10/2016 12:05 PM CST Routing refill request to provider for review/approval because: PT was seen today - Ok for refill Dayna Davis RN ANISM INSPECTOR * Telephone Encounter - Kristin Levin - 07/08/2016 1:36 PM CST Ibuprofen Last Written Prescription Date: 05/28/16 Last Quantity: 90, # refills: 0 Last Office Visit with [facility], [facility] or [facility] prescribing provider: 02/24/16 Next 5 appointments (look out 90 days) Jul 10, 2016 8:00 AM Raffi Skinner with Noy Major MD [facility] [address] [place] [phone] CREATININE Date Value Ref Range Status 03/03/2015 [...] AM Raffi Skinner with Noy Major MD [facility] ([facility] [address] [place] [phone] POTASSIUM Date Value Ref Range Status 03/03/2015 3.9 3.4 - 5.3 mmol/L Final CREATININE Date Value Ref Range Status 03/03/2015 0.74 0.66 - 1.25 mg/dL Final BP Readings from Last 3 Encounters: 02/24/16 146/96 03/29/15 128/86 03/03/15 150/94 ANISM INSPECTOR documented in this encounter Plan of Treatment Not on file documented as of this encounter Visit Diagnoses Diagnosis Chronic low back pain- Primary Lumbago Benign essential hypertension Essential hypertension, benign Acute bilateral low back pain without sciatica documented in this encounter Care Teams Airline Transport Pilot Relationship Specialty [place] [address] [place] [address] PCP - General Family Practice 03/19/11 [place] [address] [place] [address] PCP - Assigned PCP 07/14/16 10/20/18 [place] [address] [place] [address] Assigned PCP 07/14/16 08/02/22 [place] [address] [place] [address] Assigned PCP 10/12/22 11/15/22 documented as of this encounter
--- OUTSIDE RECORDS SUMMARY | 2024-11-26 11:02 | XMS_ITS | Encounter Summary ---
Author Organization [facility] Address [address] [place] [address]. [place] [address] Care Team Providers Care Public Relations Account Executive Name Role Phone Suresh Webster MD Primary Care Provider Unavailable Noy Major MD Primary Care Provider Noy Major MD Unavailable Noy Major MD Unavailable Noy Major MD Unavailable Encounter Details Date Type Department Care Team (Late st Contact Info) Description 05/26/[address] [address] Pawel Palm MD [facility] [place] [address] [place] [address] DIAGNOSIS NOT YET DEFINED (Primary Dx) Social History Tobacco Use Types Packs/Day Years Used Date Smoking Tobacco: Never Smokeless Tobacco: Never Alcohol Use Standard Drinks/Week Comments Yes 0 (1 standard drink = 0.6 oz pur e alcohol) socially Sex and Gender Information Value Date Recorded Sex Assigned at Male 02/10/2019 3:52 PM CDT Legal Sex Male 3:14 AM CATERING DIRECTOR Gender Identity Male 02/10/2019 3:52 PM CDT Sexual Orientation Straight 02/10/2019 3: 52 PM CDT documented as of this encounter Progress Notes * 05/26/2003 11:59 PM [id number] 00:00 History And Physical-[facility] ZAY MATOS) [Entered: 00:00 Tr anscription ([facility])] CHIEF COMPLAINT: Alcohol dependence. HISTORY OF PRESENT ILLNESS: This is the f [facility] admission for Thuan Lopez who is a 42-year-old male. The patient is . He has an 11-year-old son. 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 The patient enters [facility] at this time on his own [...] Essentially negative. The patie nt went to [facility] for an evaluation, and inpatient treatment [...] MATOS MD T : 05/27/2003 12:40 MT: [facility] Document: [id number] LCN: [id number] DSC: [place], [place] Name: MR#: : Admit Date: THUAN LOPEZ -14 1960 1 HISTORY AND PHYSICAL Page 2 of 2 Electronically filed by Luciana Merrill 05/31/2003 3:0 1 PM documented in this encounter Plan of Treatment Not on file documented as of this encounter Visit Diagnoses Diagnosis DIAGNOSIS NOT YET DEFINED- Primary documented in this encounter Care Teams Public Relations Account Executive Relationship Specialty Start Date End Date Suresh Webster MD PCP - General 07/22/03 03/18/11 [place] [address] [place] [address] PCP - General Family Practice 03/19/11 [place] [address] [place] [address] PCP - Assigned PCP 07/14/16 10/20/18 [place] [address] [place] [address] Assigned PCP 07/14/16 08/02/22 [place] [address] [place] [address] Assigned PCP 10/12/22 11/15/22 documented as of this encounter
--- OUTSIDE RECORDS SUMMARY | 2024-11-26 11:02 | XMS_ITS | Encounter Summary ---
Author Organization [facility] Address [address] [place] [address]. [place] [address] Care Team Providers Care Hourly Shift Name Role Phone Suresh Webster MD Primary Care Provider Unavailable Noy Major MD Primary Care Provider [phone] Noy Major MD Unavailable Noy Major MD Unavailable Noy Major MD Unavailable Reason for Visit * Reason Onset Date Comments Refill Request 10/10/2010 tramadol Encounter Details Date Type Department Care Team (Late st Contact Info) Description 10/10/2010 [facility] Refill [address] [address] Suresh Webster MD Refill Request (tramadol) Social History Tobacco Use Types Packs/Day Years Used Date Smoking Tobacco: Never Alcohol Use Standard Drinks/Week Comments No 0 (1 standard drink = 0.6 oz pure alcohol) Detox hx. 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 OPERATOR Gender Identity Male 02/10/2019 3:52 PM CDT Sexual Orientation Straight 02/10/2019 3: 52 PM CDT documented as of this encounter Miscellaneous Notes * Telephone Encounter - Luli Goode - 10/10/2010 2:58 PM CST MEDICATION(S) REQUESTED: Tramadol Last OV: 08/23/10 Reason for visit: chest pain Date last filled: 09/10/10 #100 Not pso, routed, need to fax Luli Goode RN DRY PRESS OPERATOR documented in this encounter Plan of Treatment Not on file documented as of this encounter Visit Diagnoses Diagnosis Lumbar radiculopathy Thoracic or lumbosacral neuritis or radiculitis, unspecified documented in this encounter Care Teams Hourly Shift Relationship Specialty Start Date End Date Suresh Webster MD PCP - General 07/22/03 03/18/11 [place] [address] [place] [address] PCP - General Family Practice 03/19/11 [place] [address] [place] [address] PCP - Assigned PCP 07/14/16 10/20/18 [place] [address] [place] [address] Assigned PCP 07/14/16 08/02/22 [place] [address] [place] [address] Assigned PCP 10/12/22 11/15/22 documented as of this encounter
--- OUTSIDE RECORDS SUMMARY | 2024-11-26 11:02 | XMS_ITS | Encounter Summary ---
Author Organization [facility] Address [address] [place] [address]. [place] [address] Care Team Providers Care Manager Banking Name Role Phone Suresh Webster MD Primary Care Provider Unavailable Noy Major MD Primary Care Provider Noy Major MD Unavailable Noy Major MD Unavailable Noy Major MD Unavailable Reason for Visit * Reason Onset Date Comments MyChart Communication 01/11/2011 BP update Encounter Details Date Type Department Care Team (Latest Contact Info) Description 01/11/2011 [facility] Medical Advice [address] [address] Noy Major MD [address] [place] [address] MyChart Communication (BP update) Social History Tobacco Use Types Packs/Day Years Used Date Smoking Tobacco: Never Alcohol Use Standard Drinks/Week Comments No 0 (1 standard drink = 0.6 oz pure alcohol) Detox hx. 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 SUSTAINABILITY PROJECT COORDINATOR Gender Identity Male 02/10/2019 3:52 PM CDT Sexual Orientation Straight 02/10/2019 3: 52 PM CDT documented as of this encounter Plan of Treatment Not on file documented as of this encounter Visit Diagnoses Not on filedocumented in this encounter Care Teams Manager Banking Relationship Specialty Start Date End Date Suresh Webster MD PCP - General 07/22/03 03/18/11 [place] [address] [facility] [place] [address] PCP - General Family Practice 03/19/11 [place] [address] [facility] [place] [address] PCP - Assigned PCP 07/14/16 10/20/18 [place] [address] [facility] [place] [address] Assigned PCP 07/14/16 08/02/22 [place] [address] [facility] [place] [address] Assigned PCP 10/12/22 11/15/22 documented as of this encounter
--- OUTSIDE RECORDS SUMMARY | 2024-11-26 11:02 | XMS_ITS | Encounter Summary ---
Author Organization [facility] Address [address] [place] [address]. 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 [place] [address] PCP - General Family Practice 03/19/11 [place] [address] [facility] [address] Assigned PCP 07/14/16 08/02/22 [place] [address] [place] [address] Assigned PCP 10/12/22 11/15/22 documented as of this encounter
--- OUTSIDE RECORDS SUMMARY | 2024-11-26 11:02 | XMS_ITS | Encounter Summary ---
Author Organization [facility] Address [address] [place] [address]. [place] [address] Care Team Providers Care Construction Management Assistant Name Role Phone Noy Major MD Primary Care Provider [phone] Noy Major MD Unavailable Noy Major MD Unavailable Noy Major MD Unavailable Encounter Details Date Type Department Care Team (Late st Contact Info) Description 03/08/2015 [facility] Medical Advice [address] [phone] Anali Ndiaye, LEADERSHIP RECRUITER Social History Tobacco Use Types Packs/Day Years Used Date Smoking Tobacco: Never Smokeless Tobacco: Never Alcohol Use Standard Drinks/Week Comments Yes 0 (1 standard drink = 0.6 oz pur e alcohol) socially Sex and Gender Information Value Date Recorded Sex Assigned at Male 02/10/2019 3:52 PM CDT 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 Gender Identity Male 02/10/2019 3:52 PM CDT Sexual Orientation Straight 02/10/2019 3: 52 PM CDT documented as of this encounter Plan of Treatment Not on file documented as of this encounter Visit Diagnoses Not on filedocumented in this encounter Care Teams Construction Management Assistant Relationship Specialty Start Date End Date Noy Major MD [address] [place] [id number] PCP - General Family Practice 03/19/11 [place] [address] [place] [address] PCP - Assigned PCP 07/14/16 10/20/18 [place] [address] [place] [address] Assigned PCP 07/14/16 08/02/22 [place] [address] [place] [address] Assigned PCP 10/12/22 11/15/22 documented as of this encounter
--- OUTSIDE RECORDS SUMMARY | 2024-11-26 11:02 | XMS_ITS | Encounter Summary ---
Author Organization [facility] Address [address] [place] [address]. [place] [address] Care Team Providers Care Head Coach Name Role Phone Noy Major MD Primary Care Provider [phone] Noy Major MD Unavailable Noy Major MD Unavailable Noy Major MD Unavailable Encounter Details Date Type Department Care Team (Late st Contact Info) Description 09/17/2012 [facility] [address] [phone] [facility] Social History Tobacco Use Types Packs/Day Years Used Date Smoking Tobacco: Never Smokeless Tobacco: Never Alcohol Use Standard Drinks/Week Comments No 0 (1 standard drink = 0.6 oz pure alcohol) Detox hx. 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 Gender Identity Male 02/10/2019 3:52 PM CDT Sexual Orientation Straight 02/10/2019 3: 52 PM CDT documented as of this encounter Plan of Treatment Not on file documented as of this encounter Visit Diagnoses Not on filedocumented in this encounter Care Teams Head Coach Relationship Specialty Start Date End Date Noy Major [place] [id number] [place] [address] PCP - General Family Practice 03/19/11 [place] [address] [place] [address] PCP - Assigned PCP 07/14/16 10/20/18 [place] [address] [place] [address] Assigned PCP 07/14/16 08/02/22 [place] [address] [place] [address] Assigned PCP 10/12/22 11/15/22 documented as of this encounter
[2024-11-26 11:16] LABS: Basophils Absolute Auto 0.03 K/uL (0.00-0.30); Basophils Percent Auto 0.6 % (0.0-3.0); Eosinophils Absolute Auto 0.03 K/uL (0.00-0.50); Eosinophils Percent Auto 0.6 % (0.0-7.0); Hemoglobin* 14.3 gm/dL (13.5-17.5); Immature Granulocytes Abs Auto 0.04 K/uL (0.00-0.30); Immature Granulocytes Pct Auto 0.9 %; Lymphocytes Percent Auto 18.7 % (20-44); Mean Corpuscular HGB Conc 33 gm/dL (32-36); Mean Corpuscular Hemoglobin 30 pg (26-34); Mean Corpuscular Volume 91 fL (80-100); Neutrophils Absolute Auto 3.06 K/uL (1.7-7.0); Neutrophils Percent Auto 65.2 % (42.0-72.0); Platelet Count* 193 K/uL (140-440); Red Blood Count 4.75 m/uL (4.30-5.90)
[2024-11-26 11:18] LABS: Slide Review Reflex No
[2024-11-26 11:20] VITALS: BP 172/98; PULSE 56; RESP 18
[2024-11-26 11:32] LABS: Chloride* 105 mmol/L (96-114); Potassium* 4.5 mmol/L (3.6-5.1); Sodium* 143 mmol/L (135-149)
[2024-11-26 11:35] LABS: Anion Gap 12 mEq/L (7-15); Blood Urea Nitrogen* 18 mg/dL (7-30); Calcium* 9.9 mg/dL (8.4-10.6); Carbon Dioxide* 26 mmol/L (20-32); Creatinine* 0.8 mg/dL (0.5-1.5); Est. Creatinine Clearance* 85.45; Estimated Glomerular Filt Rate 99 ml/min; Glucose* 101 mg/dL (60-115)
[2024-11-26 11:45] LABS: NT Pro B Type NatriureticPept* 88 pg/mL
== END 2024-11-26 12:26 | disposition home or self-care (01) ==
PROVIDERS: Emergency Provider Family Medicine; PCP Physician Assistant Medical
DX: I10 Essential (primary) hypertension (principal); M54.42 Lumbago with sciatica, left side; G89.29 Other chronic pain; Z51.89 Encounter for other specified aftercare
CPT/HCPCS: 36415; 70450; 71046; 80048; 83880; 84484; 85025; 93005; 99284; 99285

== ENCOUNTER 2025-04-28 08:33 | Outpatient (CLI) | payer OTHER, SELFPAY | END 2025-04-28 08:34 | disposition home or self-care (01) | LOC: NFLDREF 05-03 06:47 | PROVIDERS: PCP Physician Assistant Medical; Referring Provider Physician Assistant Medical; Visit Provider Physician Assistant Medical | DX: M54.42 Lumbago with sciatica, left side (principal); G89.29 Other chronic pain; I10 Essential (primary) hypertension | CPT/HCPCS: 80048 ==

== ENCOUNTER 2025-06-22 07:46 | Outpatient (CLI) | payer OTHER, SELFPAY | END 2025-06-22 07:47 | disposition home or self-care (01) | LOC: INJ CL 07:47 | PROVIDERS: PCP Physician Assistant Medical; Visit Provider Nurse Anesthetist, Certified Registered | DX: M54.16 Radiculopathy, lumbar region (principal) | CPT/HCPCS: 64483; J1100; Q9966 ==

== ENCOUNTER 2025-07-15 15:13 | Outpatient (CLI) | payer OTHER, SELFPAY ==
--- NOTE | 2025-07-15 15:30 | CRLHL7_ITS ---
For Patients: As a result of the Century Cures Act, medical imaging exams and procedure reports are released immediately into your electronic medical record. You may view this report before your referring provider. If you have questions, please contact your health care provider. Indication: Cervicalgia. Technique: MRI of the cervical spine was performed without the use of intravenous contrast. Comparison: MRI cervical spine 04/08/2024. Findings: Postsurgical changes of ACDF at C6-7. Vertebral body heights are maintained. Disc space heights are preserved. Straightening of the cervical lordosis. No abnormal cord signal. C2-3: No spinal canal or neural foraminal narrowing. C3-4: No spinal canal narrowing. Mild neural foraminal narrowing secondary to uncovertebral joint and facet arthropathy. Stable. C4-5: Trace anterolisthesis. Minimal spinal canal narrowing. [id number] left and mild right neural foraminal narrowing secondary to uncovertebral joint and facet arthropathy. Stable. C5-6: Disc osteophyte complex results in minimal spinal canal narrowing. Moderate right and mild left neural foraminal narrowing secondary to uncovertebral joint and facet arthropathy. Stable. C6-7: Postsurgical change. No spinal canal or neural foraminal narrowing. C7-T1: No spinal canal or neural foraminal narrowing. Impression: 1. Postsurgical changes of ACDF at C6-7. 2. At C5-6, moderate right and mild left neural foraminal narrowing. 3. At C4-5, mild to moderate left neural foraminal narrowing. 4. No abnormal cord signal. Dictated by Edgardo Diop MD @ 07/18/2025 2:04:36 PM (Electronically Signed)
== END 2025-07-15 15:14 | disposition home or self-care (01) ==
LOC: MRI 15:14
PROVIDERS: PCP Physician Assistant Medical; Visit Provider Nurse Anesthetist, Certified Registered
DX: M47.812 Spondylosis without myelopathy or radiculopathy, cervical region (principal); Z98.1 Arthrodesis status; M43.12 Spondylolisthesis, cervical region; M54.2 Cervicalgia
CPT/HCPCS: 72141

== ENCOUNTER 2025-08-17 08:45 | Outpatient (CLI) | payer OTHER, SELFPAY | END 2025-08-17 08:46 | disposition home or self-care (01) | LOC: INJ CL 08:45 | PROVIDERS: PCP Physician Assistant Medical; Visit Provider Nurse Anesthetist, Certified Registered | DX: M54.2 Cervicalgia (principal); G89.29 Other chronic pain | CPT/HCPCS: 64479; J1100; Q9966 ==